=== PATIENT | female | born 1945 | race Caucasian/White ===

== ENCOUNTER 2019-10-03 15:06 | Inpatient (IN) | payer OTHER, BC ==
[2019-10-03] MEDS ORDERED: NA CHLORIDE 0.9% 1,000 ML ONE ×2 (15:13→15:59)
[2019-10-03] MEDS ORDERED: FENTANYL CITR 100 MCG/2 ML ONE ×2 (15:13→17:56)
[2019-10-03] MEDS ORDERED: ONDANSETRON 4 MG/2 ML VIAL ONE ×3 (15:13→20:39)
[2019-10-03] MEDS ORDERED: CEFAZOLIN/SWI 2gm 2 GM/20 ML SYR IVP ONE (15:30)
[2019-10-03 15:38] LABS: Absolute Lymphocytes (CBC) 3.3 K/uL (0.7-4.9); Basophils % 0.5 % (0-1.3); Hematocrit 35.2 % (36.0-45.0); Lymphocytes % 32.6 % (15.3-44.8); MPV 7.7 fL (7.6-11.3); RBC Red Blood Cell Count 3.73 M/uL (3.86-4.86)
[2019-10-03] MEDS ORDERED: PROPOFOL 200 MG/20 ML VIAL IV ONE ×2 (15:59→17:54)
--- NOTE | 2019-10-03 16:03 | RAD REPORT ---
EXAM DESCRIPTION: CT - Head Brain Wo Cont - 10/03/2019 3:38 pm CLINICAL HISTORY: Syncope, fall COMPARISON: CT head April 2013. TECHNIQUE: Axial 5 mm thick images of the head were obtained without IV contrast. All CT scans are performed using dose optimization technique as appropriate and may include automated exposure control or mA/KV adjustment according to patient size. FINDINGS: No intracranial hemorrhage, mass, edema or shift of mid-line structures. No acute infarcti on changes seen. No abnormal extra-axial fluid collections. No significant atrophy or chronic ischemi c change. Ventricles are normal. Arterial and physiologic calcifications are present. Intracranial fi ndings are stable from comparison. Mastoid air cells and visualized portions of the paranasal sinuses are clear. No acute bony findings. IMPRESSION: Negative non-contrast CT head examination for acute finding.
[2019-10-03 16:04] LABS: Albumin 3.7 g/dL (3.4-5.0); Bilirubin Direct 0.1 mg/dL (0-0.2); Bilirubin Total 0.5 mg/dL (0.2-1.0); Potassium 4.1 mmol/L (3.5-5.1)
[2019-10-03] MEDS ORDERED: KETAMINE HCL 500 MG/5 ML VIAL ONE (16:12)
[2019-10-03 16:14] LABS: Protime INR 0.96
--- NOTE | 2019-10-03 16:32 | RAD REPORT ---
EXAM DESCRIPTION: RAD - Ankle Left 3 View - 10/03/2019 3:34 pm CLINICAL HISTORY: Fall, gross ankle deformity COMPARISON: None. FINDINGS: Left ankle fracture dislocation is present. Talus is fully dislocated from the tibial plaf ond. Distal fibula fracture is present with 45 degree lateral angulation deformity and overlap. Media l malleolus fracture is present. The distal fibula fracture and the distal medial malleolus fracture remain approximated to the dome of the talus. Posterior malleolus fracture is suspected as well but n ot well visualized. No pathologic component. Soft tissue swelling is present. This may be an open fra cture on the medial margin. Little if any identifiable soft tissue overlies the medial margin of the distal tibia. Patient has a large plantar spur. IMPRESSION: Left ankle fracture dislocation as detailed.
--- NOTE | 2019-10-03 17:12 | RAD REPORT ---
EXAM DESCRIPTION: RAD - Ankle Left 2 View - 10/03/2019 4:49 pm CLINICAL HISTORY: Fracture dislocation left ankle COMPARISON: Left ankle films same FINDINGS: Frontal and cross-table lateral post reduction images were obtained of a previously detailed gross de formity fracture dislocation. Talus has been reduced to near anatomic alignment and position. Medial malleolus and distal fibula fr acture fragments also in near anatomic alignment and position. IMPRESSION: Fracture dislocation has been reduced to near anatomic alignment and position.
[2019-10-03] MEDS ORDERED: LIDOCAINE 2% MPF 5 ML VIAL ONE (17:54)
[2019-10-03] MEDS ORDERED: Ringers Lactate 1,000 ML IV ONE ×2 (17:55→19:46)
[2019-10-03] MEDS ORDERED: MIDAZOLAM HCL 2 MG/2 ML INJ ONE (17:56)
[2019-10-03] MEDS ORDERED: ROCURONIUM 50 MG/5 ML VIAL IV ONE (17:56)
--- NOTE | 2019-10-03 18:02 | EDPHYS ---
Physician Documentation [facility] Name: Natalya Choudhary Age: 74 yrs Sex: Female : 1945 Arrival Date: 10/03/2019 Time: 15:11 Bed 3 Private MD: ED Physician Mark Yates HPI: 10/03 17:36 This 74 yrs old Female presents to ER via EMS with complaints of Fall Injury, rn Ankle Injury. 17:36 The patient presents with a deformity, an injury, pain. The complaints affect the left rn ankle. Onset: The symptoms/episode began/occurred just prior to arrival. Associated signs and symptoms: Pertinent negatives: fever, rash, warmth, weakness. Modifying factors: The symptoms are alleviated by nothing, the symptoms are aggravated by movement. Severity of symptoms: At their worst the symptoms were moderate, in the emergency department the symptoms are unchanged. The patient has not experienced similar symptoms in the past. Pt was at [employer], states felt like had to use bathroom, tried, unable to, got off toilet, woke up on ground, not sure what happened but had open wound to left ankle and blood on floor. No meds given by EMS because patient's BP low, given small amount of fluids and BP continues to improve. . Historical: - Allergies: 15:18 No Known Allergies; jl7 - Home Meds: 17:30 gabapentin 100 mg oral cap [Active]; Effexor Oral 75 mg daily [Active]; trazodone 150 sg mg Oral tab [Active]; spironolactone 25 mg Oral tab [Active]; lisinopril-hydrochlorothiazide 20-12.5 mg oral tab 1 tab once daily [Active]; levothyroxine 75 mcg tab 1 tab once daily [Active]; Fish Oil oral oral [Active]; fenofibrate oral 67 mg oral [Active]; - PMHx: 15:31 Hypertension; diverticulosis; iw 17:30 RA; sg - PSHx: 17:30 Hysterectomy; Cholecystectomy; sg - Immunization history:: Last tetanus immunization: July 16, 2017. - Ebola Screening: : No symptoms or risks identified at this time. - Family history:: not pertinent. - Social history:: Smoking status: Patient/guardian denies using tobacco. - Hospitalizations: : No recent hospitalization is reported. ROS: 17:36 Constitutional: Negative for fever, chills, and weight loss, Eyes: Negative for injury, rn pain, redness, and discharge, Neck: Negative for injury, pain, and swelling, Cardiovascular: Negative for chest pain, palpitations, and edema, Respiratory: Negative for shortness of breath, cough, wheezing, and pleuritic chest pain, Abdomen/GI: Negative for vomiting, diarrhea MS/Extremity: + left ankle injury and open wound Skin: + open wound left medial ankle Neuro: Negative for headache, weakness, numbness, tingling, and seizure. Exam: 17:36 Constitutional: This is a well developed, well nourished patient who is awake, alert, rn appears uncomfortable Head/Face: Normocephalic, atraumatic. Eyes: Pupils equal round and reactive to light, extra-ocular motions intact. Lids and lashes normal. Conjunctiva and sclera are non-icteric and not injected. Cornea within normal limits. Periorbital areas with no swelling, redness, or edema. Neck: NO cervical midline tenderness, no swelling Chest/axilla: Normal chest wall appearance and motion. Nontender with no deformity. Cardiovascular: Regular rate and rhythm. No pulse deficits. Respiratory: No increased work of breathing, no retractions or nasal flaring. Abdomen/GI: soft, mild lower bilateral quadrant tenderness, no masses or rebound MS/ Extremity: Pulses equal, no cyanosis. + lateral displaced left foot with 4cm medial ankle laceration and protrusion of medial malleolus. DP and PT pulses intact and equal to RLE. Mild swelling and no cyanosis. Neuro: Awake and alert, GCS 15, oriented to person, place, time, and situation. Cranial nerves II-XII grossly intact. Motor strength 5/5 in all extremities. Sensory grossly intact. Cerebellar exam normal. Normal gait. Vital Signs: 15:11 BP 132 / 87; Pulse 89; Resp 16 S; Temp 98.0; Pulse Ox 100% on R/A; Weight 79.38 kg; iw Height 5 ft. 4 in. (162.56 cm); Pain 10/10; 15:18 BP 99 / 55; Pulse 79; Resp 18 S; Temp 98.3(TE); Pulse Ox 97% on R/A; Pain 10/10; iw 16:00 BP 124 / 47; Pulse 74; Resp 16; Pulse Ox 99% on R/A; iw 16:18 BP 159 / 67; Pulse 78; Resp 12; Pulse Ox 100% on 15% Non-rebreather mask; sg 16:25 BP 152 / 82; Pulse 79; Resp 14; Pulse Ox 100% on 15% Non-rebreather mask; sg 16:30 BP 131 / 61; Pulse 78; Resp 16; Pulse Ox 100% on 2 lpm NC; sg 16:45 BP 132 / 62; Pulse 77; Resp 18; Temp 97.2; Pulse Ox 100% on 2 lpm NC; sg 15:11 Body Mass Index 30.04 (79.38 kg, 162.56 cm) iw 16:18 Dhaval Score of 7 sg 16:25 Dhaval Score of 7 sg 16:30 Dhaval Score of 8 sg [place] Coma Score: 15:11 Eye Response: spontaneous(4). Verbal Response: oriented(5). Motor Response: obeys iw commands(6). Total: 15. 15:18 Eye Response: spontaneous(4). Verbal Response: oriented(5). Motor Response: obeys iw commands(6). Total: 15. Trauma Score (Adult): 15:11 Eye Response: spontaneous(1); Verbal Response: oriented(1); Motor Response: obeys iw commands(2); Systolic BP: > 89 mm Hg(4); Respiratory Rate: 10 to 29 per min(4); [place] Score: 15; Trauma Score: 12 15:18 Eye Response: spontaneous(1); Verbal Response: oriented(1); Motor Response: obeys iw commands(2); Systolic BP: > 89 mm Hg(4); Respiratory Rate: 10 to 29 per min(4); [place] Score: 15; Trauma Score: 12 16:00 Eye Response: spontaneous(1); Verbal Response: oriented(1); Motor Response: obeys iw commands(2); Systolic BP: > 89 mm Hg(4); Respiratory Rate: 10 to 29 per min(4); Carol Score: 15; Trauma Score: 12 Procedures: 16:29 Splinting: Splint applied to left ankle using Orthoglass splint, applied by myself. rn post reduction film - reveals improved alignment, Examined by me, post splint application: neurovascular intact, 2+ distal pulses palpable, strong posterior tibial arterial pulse. Patient tolerated well. Reduction: of the left ankle, using traction, manipulation, Immobilized with posterior and stirrup splints. Patient tolerated well. Post reduction film - reveals improved alignment. Moderate sedation: Pre-procedure assessment: the patient has been NPO 4 hour(s) prior to arrival, ASA physical classification: I - healthy, no underlying organic disease, Airway assessment: able to hyperextend neck, able to maintain airway, can open mouth without difficulty, Monitoring during procedure: documentation nurse, continuous pulse oximetry, nurse at bedside at all times, Medications employed: ketamine and propofol, Post-procedure assessment: the patient is mildly sedated, Respiratory status: even and unlabored, a reversal agent was not used. MDM: 15:11 Patient medically screened. rn 15:40 ED course: Called Dr. Renteria, no answer, will try again.. rn 16:04 ED course: Contacted Dr. Renteria, is coming to eval patient.. rn 17:05 ED course: Evaluated in ER by Dr. Renteria, Is not sure we have external fixator, is rn checking, and will let me know if we need to transfer, ankle reduced, and patient feels better. 17:23 ED course: Dr. Renteria states ok to admit here and is taking to OR. . rn 17:54 Differential diagnosis: fracture, sprain. Data reviewed: vital signs, nurses notes, laboratory supervisor test result(s), radiologic studies, plain films, and as a result, I will admit patient. Counseling: I had a detailed discussion with the patient and/or guardian regarding: the historical points, exam findings, and any diagnostic results supporting the discharge/admit diagnosis, lab results, radiology results, the need for further work-up and treatment in the hospital. Response to treatment: the patient's symptoms have markedly improved after treatment, and as a result, I will admit patient. Admission orders: after a detailed discussion of the patient's condition and case, the admit orders are written by me. 17:57 ED course: No acute findings on CT abdomen per Dr. Amin other than maybe small fecal rn retention and mild colitis. . 10/03 15:14 Order name: CBC with Diff; Complete Time: 16:53 rn 10/03 15:14 Order name: Basic Metabolic Panel; Complete Time: 16:53 rn 10/03 15:14 Order name: Creatinine for Radiology; Complete Time: 16:53 rn 10/03 15:14 Order name: Hepatic Function; Complete Time: 16:53 rn 10/03 15:14 Order name: Lipase; Complete Time: 16:53 rn 10/03 15:15 Order name: PT-INR; Complete Time: 16:53 rn 10/03 15:12 Order name: XRAY Ankle LEFT 3 view; Complete Time: 16:53 rn 10/03 15:14 Order name: CT Head Brain wo Cont; Complete Time: 16:53 rn 10/03 15:14 Order name: CT Abd/Pelvis - IV Contrast Only rn 10/03 15:15 Order name: Ptt, Activated; Complete Time: 16:53 rn 10/03 16:29 Order name: XRAY Ankle LEFT 2 view rn 10/03 17:13 Order name: Type And Screen iw 10/03 15:14 Order name: IV Start; Complete Time: 15:20 rn 10/03 15:14 Order name: EKG; Complete Time: 15:15 rn 10/03 15:14 Order name: EKG - Nurse/Tech; Complete Time: 15:40 rn 10/03 15:14 Order name: Labs collected and sent; Complete Time: 15:40 rn 10/03 15:16 Order name: NPO; Complete Time: 15:37 rn Administered Medications: 15:10 Drug: NS 0.9% 1000 ml Route: IV; Rate: 1000 ml; Site: right antecubital; sg 16:20 Follow up: Response: No adverse reaction; IV Status: Completed infusion sg 15:12 Drug: Zofran 4 mg Route: IVP; Site: right antecubital; sg 16:00 Follow up: Response: No adverse reaction sg 15:14 Drug: fentaNYL (PF) 50 mcg Route: IVP; Site: right antecubital; sg 16:00 Follow up: Response: No adverse reaction; Pain is decreased; RASS: Alert and Calm (0) sg 15:40 Drug: Ancef 2 grams Route: IVPB; Infused Over: 30 mins; Site: right antecubital; sg 16:25 Follow up: Response: No adverse reaction; IV Status: Completed infusion sg 17:23 CANCELLED (UTD): Tetanus-Diphtheria Toxoid Adult 0.5 ml IM once rn Disposition: 11/19/19 18:00 Hospitalization ordered by Kassy Carlos for Inpatient Admission. Preliminary diagnosis are Syncope and collapse, Trimalleolar fracture of lower leg, Dislocation of left ankle joint. - Bed requested for Telemetry/MedSurg (Inpatient). - Status is Inpatient Admission. sg - Condition is Stable. - Problem is new. - Symptoms have improved. UTI on Admission? No Signatures: Dispatcher [employer] EDMS Jewel Dewey RN RN sg Williams, Irene RN Mark Kwong MD MD rn Leal, Jahala, RN RN jl7 Corrections: (The following items were deleted from the chart) 17:23 17:23 Tetanus-Diphtheria Toxoid Adult 0.5 ml IM once ordered. rn rn 18:05 18:00 Hospitalization Ordered by Kassy Carlos MD for Inpatient Admission. Preliminary sg diagnosis is Syncope and collapse; Trimalleolar fracture of lower leg; Dislocation of left ankle joint. Bed requested for Telemetry/MedSurg (Inpatient). Status is Inpatient Admission. Condition is Stable. Problem is new. Symptoms have improved. UTI on Admission? No. rn
--- NOTE | 2019-10-03 18:02 | ER ---
Nurse's Notes [facility] Name: Natalya Choudhary Age: 74 yrs Sex: Female : 1945 Arrival Date: 10/03/2019 Time: 15:11 Bed 3 Private MD: Diagnosis: Syncope and collapse;Trimalleolar fracture of lower leg;Dislocation of left ankle joint Presentation: 10/03 15:08 Presenting complaint: Patient states: was having abd pain, cramping, went to bathroom iw at [employer], tried to have a BM but go dizzy and then woke up on floor, pt has obvious deformity to left ankle, open dislocation/fracture, EMS was unable to give pain meds due to BP, EMS reports initial BP reading in 60's systolic, IV fluids infusing upon arrival , pt A\T\OX3, denies head or neck pain, denies any other injuries, still c/o and pain , hx of diverticulosis. Care prior to arrival: Medication(s) given: Normal saline infusion, 500 mL, IV initiated. 20 GA, in the right antecubital area. Mechanism of Injury: Fall Trauma event details: Injury occurred in the [facility], Injury occurred: at home. Injury occurred: October 03, 2019. 15:08 Acuity: SUN 2 iw 15:08 Method Of Arrival: EMS: [facility] iw 15:32 Transition of care: patient was not received from another setting of care. Onset of iw symptoms was October 03, 2019. Risk Assessment: Do you want to hurt yourself or someone else? Patient reports no desire to harm self or others. Initial Sepsis Screen: Does the patient meet any 2 criteria? No. Patient's initial sepsis screen is negative. Does the patient have a suspected source of infection? No. Patient's initial sepsis screen is negative. Trauma Activation: Physician: ED Physician; Name: Dr. Yates; Notified At: 14:58; Arrived At: 14:58 Physician: General Surgeon; Name: N/A; Notified At: 14:58; Arrived At: Specialty not needed Physician: Radiology; Name: Don Donovan/Yennifer; Notified At: 14:58; Arrived At: 14:59 Physician: Respiratory; Name: N/A; Notified At: 14:58; Arrived At: Specialty not needed Physician: Lab; Name: N/A; Notified At: 14:58; Arrived At: Specialty not needed Historical: - Allergies: 15:18 No Known Allergies; jl7 - Home Meds: 17:30 gabapentin 100 mg oral cap [Active]; Effexor Oral 75 mg daily [Active]; trazodone 150 sg mg Oral tab [Active]; spironolactone 25 mg Oral tab [Active]; lisinopril-hydrochlorothiazide 20-12.5 mg oral tab 1 tab once daily [Active]; levothyroxine 75 mcg tab 1 tab once daily [Active]; Fish Oil oral oral [Active]; fenofibrate oral 67 mg oral [Active]; - PMHx: 15:31 Hypertension; diverticulosis; iw 17:30 RA; sg - PSHx: 17:30 Hysterectomy; Cholecystectomy; sg - Immunization history:: Last tetanus immunization: July 16, 2017. - Ebola Screening: : No symptoms or risks identified at this time. - Family history:: not pertinent. - Social history:: Smoking status: Patient/guardian denies using tobacco. - Hospitalizations: : No recent hospitalization is reported. Screenin:32 Abuse screen: Denies threats or abuse. Denies injuries from another. Tuberculosis iw screening: No symptoms or risk factors identified. Primary Survey: 15:12 NO uncontrolled hemorrhage observed. A: The patient is alert. Airway: patent. iw Breathing/Chest: Respiratory pattern: regular, Respiratory effort: spontaneous, Chest inspection: symmetrical rise and fall of the chest. Circulation: Heart tones present. Pulses: palpable right dorsalis pedis artery and left dorsalis pedis artery. Skin color: pink. Disability Alert. Exposure/Environment: All clothing and personal items were removed. There is no evidence of uncontrolled external bleeding. Obvious injury(ies) are noted at this time: open fracture/dislocation to left ankle. 15:12 Reassessment Airway Airway Patent Oral cavity Clear Trachea Midline Breathing/Chest sg Respiratory pattern Regular Respiratory effort Spontaneous Unlabored Breath sounds Clear Chest inspection Symmetrical Circulation Heart tones Present Disability Alert. Secondary Survey: 15:40 Gastrointestinal: Abdomen is soft, flat. Musculoskeletal: Bony deformity noted of left iw ankle. Assessment: 15:12 General: Appears uncomfortable, Behavior is calm. Pain: Complains of pain in left iw lateral ankle Pain currently is 10 out of 10 on a pain scale. Pain: Complains of pain in abdomen. Neuro: Level of Consciousness is awake, alert, obeys commands, Oriented to person, place, time, situation, Moves all extremities. Cardiovascular: Capillary refill < 3 seconds in bilateral fingers Patient's skin is warm and dry. Respiratory: Respiratory effort is even, unlabored, Respiratory pattern is regular, symmetrical. GI: Abdomen is non-distended, Reports upper abdominal pain, cramping. Derm: Skin is intact, is healthy with good turgor. Musculoskeletal: Range of motion: limited in left ankle Bony deformity noted of left lateral ankle Swelling present in left lateral ankle. 16:38 Reassessment: at bedside assessing patient during procedure. sg 16:40 Reassessment: Patient appears in no apparent distress at this time. Patient and/or sg family updated on plan of care and expected duration. Pain level reassessed. Patient is alert, oriented x 3, equal unlabored respirations, skin warm/dry/pink. at bedside for closed reduction of left ankle. 17:25 Reassessment: Patient appears in no apparent distress at this time. Patient is alert, sg oriented x 3, equal unlabored respirations, skin warm/dry/pink. Jewelry and personal belongings given to pt daughters at this time, pt to CT for CT ABD/Pelvis. Vital Signs: 15:11 BP 132 / 87; Pulse 89; Resp 16 S; Temp 98.0; Pulse Ox 100% on R/A; Weight 79.38 kg; iw Height 5 ft. 4 in. (162.56 cm); Pain 10/10; 15:18 BP 99 / 55; Pulse 79; Resp 18 S; Temp 98.3(TE); Pulse Ox 97% on R/A; Pain 10/10; iw 16:00 BP 124 / 47; Pulse 74; Resp 16; Pulse Ox 99% on R/A; iw 16:18 BP 159 / 67; Pulse 78; Resp 12; Pulse Ox 100% on 15% Non-rebreather mask; sg 16:25 BP 152 / 82; Pulse 79; Resp 14; Pulse Ox 100% on 15% Non-rebreather mask; sg 16:30 BP 131 / 61; Pulse 78; Resp 16; Pulse Ox 100% on 2 lpm NC; sg 16:45 BP 132 / 62; Pulse 77; Resp 18; Temp 97.2; Pulse Ox 100% on 2 lpm NC; sg 15:11 Body Mass Index 30.04 (79.38 kg, 162.56 cm) iw 16:18 Dhaval Score of 7 sg 16:25 Dhaval Score of 7 sg 16:30 Dhaval Score of 8 sg Carol Coma Score: 15:11 Eye Response: spontaneous(4). Verbal Response: oriented(5). Motor Response: obeys iw commands(6). Total: 15. 15:18 Eye Response: spontaneous(4). Verbal Response: oriented(5). Motor Response: obeys iw commands(6). Total: 15. Trauma Score (Adult): 15:11 Eye Response: spontaneous(1); Verbal Response: oriented(1); Motor Response: obeys iw commands(2); Systolic BP: > 89 mm Hg(4); Respiratory Rate: 10 to 29 per min(4); Carol Score: 15; Trauma Score: 12 15:18 Eye Response: spontaneous(1); Verbal Response: oriented(1); Motor Response: obeys iw commands(2); Systolic BP: > 89 mm Hg(4); Respiratory Rate: 10 to 29 per min(4); Carol Score: 15; Trauma Score: 12 16:00 Eye Response: spontaneous(1); Verbal Response: oriented(1); Motor Response: obeys iw commands(2); Systolic BP: > 89 mm Hg(4); Respiratory Rate: 10 to 29 per min(4); Carol Score: 15; Trauma Score: 12 ED Course: 15:11 Patient arrived in ED. rn 15:11 Mark Yates MD is Attending Physician. rn 15:15 Maintain EMS IV. Dressing intact. Good blood return noted. Site clean \T\ dry. Gauge \T\ iw site: 20 RAC. Patient maintains SpO2 saturation greater than 95% on room air. Thermoregulation: warm blanket given to patient. 15:17 Radiology exam delayed due to lab results not completed at this time. (BUN/Creatinine) kw1 IV insertion attempt and/or patient not having appropriate IV at this time. 15:19 Arm band placed on right wrist. jl7 15:20 Patient has correct armband on for positive identification. Bed in low position. Call sg light in reach. Side rails up X2. Pulse ox on. NIBP on. Warm blanket given. Head of bed elevated. 15:21 Jewel Dewey, RN is Primary Nurse. sg 15:30 Triage completed. iw 15:35 XRAY Ankle LEFT 3 view In Process Unspecified. EDMS 15:38 CT Head Brain wo Cont In Process Unspecified. EDMS 15:39 Radiology exam delayed due to lab results not completed at this time. (BUN/Creatinine). nj 15:47 EKG done, by certified pharmacy technician. reviewed by Mark Yates MD. sm3 16:00 Consent for conscious sedation explained by physician, signed by spouse, Procedure sg consent explained by physician, signed by spouse. 16:48 XRAY Ankle LEFT 2 view In Process Unspecified. EDMS 17:34 CT Abd/Pelvis - IV Contrast Only In Process Unspecified. EDMS 17:52 No provider procedures requiring assistance completed. Patient admitted, IV remains in sg place. intact, No redness/swelling at site. 17:58 Kassy Carlos MD is Hospitalizing Provider. rn Administered Medications: 15:10 Drug: NS 0.9% 1000 ml Route: IV; Rate: 1000 ml; Site: right antecubital; sg 16:20 Follow up: Response: No adverse reaction; IV Status: Completed infusion sg 15:12 Drug: Zofran 4 mg Route: IVP; Site: right antecubital; sg 16:00 Follow up: Response: No adverse reaction sg 15:14 Drug: fentaNYL (PF) 50 mcg Route: IVP; Site: right antecubital; sg 16:00 Follow up: Response: No adverse reaction; Pain is decreased; RASS: Alert and Calm (0) sg 15:40 Drug: Ancef 2 grams Route: IVPB; Infused Over: 30 mins; Site: right antecubital; sg 16:25 Follow up: Response: No adverse reaction; IV Status: Completed infusion sg 17:23 CANCELLED (UTD): Tetanus-Diphtheria Toxoid Adult 0.5 ml IM once pattern and chain maker: 17:50 PO: 0ml; Total: 0ml. sg Output: 17:50 Urine: 0ml; Total: 0ml. sg Outcome: 17:51 Admitted to OR accompanied by nurse, family with patient, via stretcher, with chart, sg Report called to bedside report given to OR nurse 17:51 Condition: stable 17:51 Instructed on the need for admit, safety practices, Demonstrated understanding of instructions. 17:54 Patient's length of stay in the Emergency Department was greater than 2 hours. sg Patient's length of stay was extended due to the trauma surgeon being unavailable when called. Surgeon delayed, had to locate OR equipment for procedurePatient's length of stay extended due to 18:00 Decision to Hospitalize by Provider. rn 18:05 Patient left the ED. sg Signatures: Dispatcher [employer] EDMS Jewel Dewey RN RN sg Gabrielle Alejandra RN ANTIONETTE iw Mark Yates MD MD rn Jordan, Nathan nj Leal, Jahala, RN RN jl7 Carolyn Vieyra 1 Shonda Stallings 3 Corrections: (The following items were deleted from the chart) 15:32 15:15 Missed attempt(s): 20 gauge in right antecubital area. iw iw 15:41 15:18 BP 99 / 55; Pulse 79bpm; Resp 18bpm; Spontaneous; Pulse Ox 97% RA; jl7 iw 15:48 15:47 Ancef 2 grams IVPB in right antecubital over 30 mins sg sg
--- NOTE | 2019-10-03 18:05 | RAD REPORT ---
EXAM DESCRIPTION: CT - Abdomen Pelvis W Contrast - 10/03/2019 5:33 pm CLINICAL HISTORY: abd pain, syncope, fall, patient with open fracture dislocation of the ankle pendi ng surgical repair COMPARISON: CT study January 2019 TECHNIQUE: Biphasic, helical CT imaging of the abdomen and pelvis was performed following 100 ml non -ionic IV contrast. Oral contrast was given. All CT scans are performed using dose optimization technique as appropriate and may include automated exposure control or mA/KV adjustment according to patient size. FINDINGS: No suspicious findings in the lung bases. No pericardial thickening or effusion. The liver, spleen, and pancreas show no suspicious findings. No traumatic injury to the solid abdomin al viscera. Cholecystectomy clips are present with normal biliary tree. Symmetric renal function is seen with no hydronephrosis or suspicious renal mass. No pyelonephritis o r acute parenchymal process. No bladder abnormalities. No adrenal abnormality. Uterus is absent. Ovar ies are absent or atrophic. No gastric dilatation or wall thickening. No appendix or small bowel abnormality. Moderately large st ool volume distends the rectum. No overall colon dilatation. No focal colon mass. No diverticulitis. Mild mucosal level colitis changes could be present an below threshold for CT detection. No free air, free fluid or inflammatory stranding. No hernia, mass or bulky lymphadenopathy. No suspicious bony findings. Prominent bony degenerative changes are present without compression frac ture or acute finding. Patient has advanced L5-S1 degenerative disc disease. Slight L4 subluxation ca uses pseudo bulge of disc material. No acute vascular findings present. Patient has a small calcified splenic artery aneurysm that is unc hanged from prior imaging. IMPRESSION: No bowel obstruction, free air or surgically emergent finding. Patient has prominent stool volume distending the rectum. No convincing evidence for diverticulitis o r other emergent colon process. Mild mucosal level colitis changes would still be possible. No traumatic injury to the solid abdominal viscera. Bony degenerative change without acute finding. No acute vascular process.
[2019-10-03] MEDS ORDERED: METOCLOPRAMIDE 10 MG/2mL INJ ONE (18:20)
[2019-10-03] MEDS ORDERED: FAMOTIDINE 20 MG/2 ML VIAL IV ONE (18:21)
[2019-10-03] MEDS ORDERED: SUCCINYLCHOLINE 20 MG/ML (10 ML) IV ONE (18:27)
[2019-10-03] MEDS ORDERED: Phenylephrine HCl 10 MG/ML 1 ML VIAL ONE (18:51)
[2019-10-03] MEDS ORDERED: NS 0.9% VIAL 10 ML ONE (18:52)
[2019-10-03] MEDS ORDERED: NEOSTIGMINE 1 MG/ML -5 ML ONE (19:45)
[2019-10-03] MEDS ORDERED: GLYCOPYRROLATE 0.2 MG/ML SYR ONE (19:45)
[2019-10-03] MEDS ORDERED: dexAMETHasone 10 MG/ML VIAL ONE (20:05)
[2019-10-03] MEDS ORDERED: MEPERIDINE HCL 25 MG/0.5 ML ONE (20:42)
[2019-10-03] MEDS ORDERED: TRAMADOL HCL 50 MG TAB PO PRN (20:46)
[2019-10-03] MEDS ORDERED: MORPHINE 4 MG/ML SYR IV PRN (20:46)
[2019-10-03] MEDS ORDERED: DOCUSATE NA 100 MG CAP PO PRN (20:46)
[2019-10-03] MEDS ORDERED: ONDANSETRON 4 MG/2 ML VIAL IV PRN (20:46)
--- NOTE | 2019-10-03 20:46 | P.BOP ---
Preoperative diagnosis: left open trimalleolar ankle fracture Postoperative diagnosis: same Primary procedure: ORIF left bimalleolar ankle fracture Secondary procedure: closed treatment posterior malleolus fracture Employment Manager: NONE,NONE Estimated blood loss: 10 cc Specimen: none Findings: see dictation Anesthesia: General Complications: None Implants: 4 hole Acumed locking distal fibula plate, 4.0 cannulated screw Fluids & blood products: per anesthesia; TT: 87 mins @ 300 mmHg Transferred to: Recovery Room Condition: Good
--- NOTE | 2019-10-03 21:36 | RAD REPORT ---
EXAM DESCRIPTION: RAD - Ankle Left 2 View - 10/03/2019 9:10 pm CLINICAL HISTORY: POST LEFT ANKLE ORIF COMPARISON: Ankle Left 2 View dated 10/03/2019 FINDINGS: Postsurgical changes of ORIF procedure noted. Lateral fibular sideplate with multiple scre ws is present single lag screw present in the medial malleolus. Bone detail is obscured by cast mater ial. Large calcaneal spurs.
--- NOTE | 2019-10-03 22:59 | CON ---
Reason For Consultation: Left ankle pain. History Of Present Illness: Ms. Choudhary is a 74-year-old female who presented to the ER today after sustaining a fall with a twisting injury to her left ankle with subsequent pain and inability to bear weight. She had a syncopal episode that caused her fall. She sustained a laceration over her left medial ankle consistent with an open fracture dislocation of her left ankle. She underwent closed reduction in the emergency room by the emergency room physician. After irrigation of her open injury, she was given 2 g of Ancef and she was current on her tetanus vaccine. She denies any other musculoskeletal complaints at this time. She denies any numbness or tingling in her toes after reduction prior to the splint being placed. She had documented dorsalis pedis pulse and posterior tibial pulses by the emergency room physician. Review of Systems: As above, otherwise negative. Past Medical History: Includes irritable bowel syndrome, hypercholesterolemia, and hypertension, diverticulosis Past Surgical History: Includes hysterectomy, cholecystectomy. Medications: Per medication reconciliation. Social History: She does report tobacco use. Physical Examination: General: No apparent distress. HEENT: Normocephalic, atraumatic. Neck: Supple. Cardiovascular: Brisk cap refill to all digits. Chest: Nonlabored breathing. Abdomen: Nondistended. Psychiatric: Responsive to exam. Musculoskeletal: Left lower extremity prior to the splint being placed, it was noted that the patient had approximately 5-6 cm laceration, approximately 4 cm proximal to the medial malleolus. There was no gross contamination noted. She has positive firing of EHL and FHL. Sensation grossly intact at the tips of her toes and the plantar surface of her foot distally. No pain with range of motion of the hip or knee. Bilateral upper extremities functional range of motion without pain. No gross deformities. No obvious dislocations. Right lower extremity functional range of motion without pain. No gross deformities. No obvious dislocations. X-rays: X-rays demonstrate a left trimalleolar ankle fracture with a small posterior malleolar fragment of less than 25% of the joint surface and fracture with SER4 pattern. Assessment: Natalya is a 74-year-old female with an open left trimalleolar ankle fracture dislocation. Plan: Patient has undergone local irrigation and reduction by the emergency room physician. Will plan on urgent irrigation and debridement as well as possible open reduction and internal fixation versus possible external fixation. Risks and benefits associated with the procedure as well as possible further procedures were discussed with the patient and her family at length and they expressed understanding. The plan will be irrigate and definitively fix if there is no significant swelling noted. If there is significant swelling, we will have to plan on external fixation with delayed ORIF. GILLES/BETY Voice ID: [id number] Report ID: [id number] [email or web address]
[2019-10-03] MEDS ORDERED: CEFAZOLIN/SWI 2gm 0 GM/0 ML SYR ONE (23:18)
[2019-10-03] MEDS ORDERED: CEFAZOLIN SODIUM 1 GM/VIAL ONE (23:20)
[2019-10-03] MEDS ORDERED: NA CHLORIDE 0.9% 100 ML ONE (23:22)
[2019-10-03 23:27] LABS: Urine Appearance CLEAR; Urine Bilirubin NEGATIVE (NEG); Urine Blood NEGATIVE (NEG); Urine Color YELLOW; Urine Glucose NEGATIVE (NEG); Urine Protein NEGATIVE (NEG); Urine Specific Gravity 1.025 (1.005-1.030)
[2019-10-03] MEDS: CEFAZOLIN 2 GM in NA CHLORIDE 0.9% 100 ML IVPB SCH (23:30)
[2019-10-03 23:51] LABS: Urine Microscopic Reflex NO UMIC
[2019-10-04 00:11] VITALS: BMI 32.7
[2019-10-04] MEDS ORDERED: CEFEPIME 2 GM VIAL ONE (04:53)
[2019-10-04] MEDS ORDERED: CEFAZOLIN/SWI 1gm 2 GM/20 ML SYR ONE (04:55)
[2019-10-04] MEDS ORDERED: CEFAZOLIN/SWI 1gm 1 GM/10 ML SYR IV SCH ×2 (05:00→06:00)
[2019-10-04] MEDS: CEFAZOLIN/SWI 1gm 1 GM/10 ML SYR IV SCH (05:13)
[2019-10-04] MEDS: CEFAZOLIN 2 GM in NA CHLORIDE 0.9% 100 ML IVPB SCH (05:14)
[2019-10-04 05:59] LABS: Absolute Lymphocytes (CBC) 0.6 K/uL (0.7-4.9); Hematocrit 33.9 % (36.0-45.0); Lymphocytes % 5.6 % (15.3-44.8); MPV 7.9 fL (7.6-11.3); RBC Red Blood Cell Count 3.51 M/uL (3.86-4.86)
[2019-10-04] MEDS ORDERED: CEFAZOLIN/SWI 2gm 2 GM/20 ML SYR IV SCH ×3 (06:00→12:00)
[2019-10-04 06:11] LABS: Albumin 3.2 g/dL (3.4-5.0); Bilirubin Total 0.3 mg/dL (0.2-1.0); Magnesium 1.6 mg/dL (1.8-2.4); Phosphorus 2.1 mg/dL (2.5-4.9); Potassium 4.3 mmol/L (3.5-5.1); Protein, Total 6.5 g/dL (6.4-8.2)
--- NOTE | 2019-10-04 06:58 | OP ---
Date of Procedure: 10/03/2019 Surgeon: Yoan Renteria MD Postoperative Diagnosis: Left open trimalleolar ankle fracture. Postoperative Diagnosis: Left open trimalleolar ankle fracture. Procedure Performed: 1.Irrigation and debridement of left open trimalleolar ankle fracture. 2.Open reduction internal fixation, left trimalleolar ankle fracture. 3.Closed treatment left posterior malleolus fracture. Anesthesia: General endotracheal. Fluids: Per Anesthesia record. Estimated Blood Loss: Less than 10 mL. Implants: A 4-hole locking Acumed distal fibular plate and one 4-0 cannulated screw. Complications: None. Tourniquet Time: 87 minutes at 300 mmHg. Indication For Procedure: Natalya is a 74-year-old female presented to the ER after having a syncopal episode in the bathroom and sustained an injury to her left ankle. She was brought to the emergency room and was diagnosed with a left open trimalleolar ankle fracture. The patient underwent closed re duction of her fracture dislocation of her ankle and was placed in a splint by the emergency room jacques jones. Antibiotics were started in the emergency room and she was current on a tetanus vaccination. I discussed with the patient at length risks and benefits associated with operative and nonoperativ e treatment. She expressed understanding and elected to proceed with operative treatment. Description Of Procedure: After informed consent was obtained, the patient was identified in the pre operative holding area. The left lower extremity was marked. The patient was then brought back to [facility] operating room, transferred to the operating table in a supine fashion, placed under general endot dioni anesthesia. The left lower extremity was then prepped and draped in usual sterile fashion. A time-out was initiated. Correct patient and procedure were confirmed and identified. The patient had received preoperative antibiotics given her open fracture in the emergency room. The left lower extremity was then elevated and underwent gravity exsanguination and the tourniquet inflated to 300 m mHg. Attention was first taken to the open fracture. The patient had approximately a 5 cm transvers e laceration just proximal to her medial malleolus. Distal tibia was then brought out through the sk in laceration and the exposed bone was debrided using a curette as well as a 15 blade to debride the periosteum that was brought out through the deep laceration. It was debrided down to the level of angeli ne with a curette and irrigated down to the level of the bone using 6 L of normal saline using cystos copy tubing. After the fracture was irrigated and debrided thoroughly, the fracture was then reduced . Attention was then taken to the distal fibula where approximately a 10 cm longitudinal incision wa s made centered over the distal fibula. The fracture was identified. It was reduced using a pointed reduction clamp. A single 3.5 cortical screw was placed in bicortical fashion using standard AO lag technique by over drilling the proximal cortex with a 3.5 drill bit and the distal cortex with a 2.5 drill bit. An 18 mm 3.5 cortical screw was placed in bicortical fashion and there was compression o philip the fracture site. A 4-hole locking distal fibula Acumed plate was then placed as a neutralizati on plate and 4-0 locking screws were placed in unicortical fashion distally and 3 cortical screws wer e placed in bicortical fashion proximally. There was good overall reduction of the fracture evident on both AP and lateral views using fluoroscopy. A Cotton test was then used and stress was placed on the distal fibula and there was no widening of the syndesmosis. The wound was then irrigated thorou ghly with normal saline. Subcutaneous tissue was approximated using a 2-0 Vicryl. Skin was approxim ated using a 3-0 nylon. Next, attention was taken to the medial malleolus where approximately a 3 cm longitudinal incision was made just distal to the tip of the medial malleolus. Using fluoroscopy, i t was noted that the fracture was well reduced. A single K-wire was then placed in retrograde fashio n over the medial malleolus and to the distal tibia and proper position was confirmed using fluorosco py in both AP and lateral views. It was then overdrilled over the proximal cortex with a drill with a cannulated drill bit and a 42 mm 4-0 cannulated screw was placed over the guide pin and there was g ood reduction and compression at the fracture site. The distal fracture fragment was very small, wou ld not take 2 screws, and so a single central screw was placed. A second guidewire was placed while placing the screw to ensure no rotation at the fracture site. After this both K-wires were removed. The wound was then irrigated thoroughly with normal saline. Subcutaneous tissue was approximated us ing a 2-0 Vicryl. Skin was approximated using 3-0 nylon. A 5 cm laceration was then approximated us ing a 2-0 nylon loosely and sterile dressings were placed. The patient was placed in a posterior sti rrup splint. Awakened and transferred to PACU in stable condition. Postoperative Plan: Physical Therapy will be consulted tomorrow to aid with mobilization. The patie nt was admitted to the Internal Medicine hospitalist service and she will have workup for her syncopa l episode. CV/MODL Voice ID: [id number] Report ID: [id number]
--- NOTE | 2019-10-04 07:24 | P.HP ---
Certification for Inpatient Patient admitted to: Inpatient With expected LOS: >2 Midnights Patient will require the following post-hospital care: None Practitioner: I am a practitioner with admitting privileges, knowledge of patient current condition, hospital course, and medical plan of care. Services: Services provided to patient in accordance with Admission requirements found in Title 42 Section 412.3 of the Code of Federal Regulations Patient History Date of Service: 10/03/19 Reason for admission: Open ankle fracture History of Present Illness: Patient is a 74-year-old female who was at [employer] doing some shopping. She went to the restroom and when she woke up she was on the floor. She had an open left ankle fracture. She was brought into the ER and taken to the operating room by Orthopedic. The ankle was cleaned and washed out. Patient also had a repair of the ankle fracture. Orthopedics has recommended 3 doses of antibiotics prior to discharging. Patient will also need outpatient physical therapy. Will Consult PT while in the hospital. Patient also getting a syncopal workup. Will monitor on telemetry & get carotid Dopplers and echocardiogram. Allergies No Known Allergies Allergy (Verified 10/03/19 22:13) Home Medications: Fish Oil/Dha/Epa [Fish Oil 1,200 mg Fish Oil] 1,200 mg PO DAILY 04/28/13 Levothyroxine [Synthroid*] 75 mcg PO [id number] 04/28/13 Lisinopril/Hydrochlorothiazide [Zestoretic 20-12.5 Tablet] 1 each PO DAILY 04/28 Multivitamin [Daily Multivitamin] 1 each PO DAILY 04/28/13 Spironolactone [Aldactone*] 25 mg PO DAILY 04/28/13 Venlafaxine HCl *Xr* [Effexor XR] 75 mg PO DAILY 04/28/13 Fenofibrate,Micronized [Fenofibrate] 1 cap PO BEDTIME 10/03/19 Gabapentin 1 cap PO DAILY 10/03/19 Pravastatin Sodium 1 tab PO BEDTIME 10/03/19 Trazodone [Desyrel*] 1 tab PO BEDTIME 10/03/19 - Past Medical/Surgical History Has patient received pneumonia vaccine in the past: Yes Diabetic: No -: HTN -: Diverticulosis -: Osteoarthritis -: IBS -: Cholecystectomy -: Parital Hysterectomy - Family History Mother Medical History: Blood disorders Father Medical History: Stroke, Cancer Notes: Neck cancer, Pneumonia Brother Medical History: Heart disease Notes: aneurysm , bypass - Social History Smoking Status: Current every day smoker Alcohol use: Yes CD- Drugs: No Caffeine use: Yes Place of Residence: Home Review of Systems 10-point ROS is otherwise unremarkable Physical Examination - Vital Signs Temperature: 98.1 F Blood Pressure: 126/60 Pulse: 90 Respirations: 18 Pulse Ox (%): 92 - Physical Exam General: Alert, In no apparent distress, Oriented x3 HEENT: Atraumatic, PERRLA, Mucous membr. moist/pink, EOMI, Sclerae nonicteric Neck: Supple, 2+ carotid pulse no bruit, No LAD, Without JVD or thyroid abnormality Respiratory: Clear to auscultation bilaterally, Normal air movement Cardiovascular: Regular rate/rhythm, Normal S1 S2, No murmurs Gastrointestinal: Normal bowel sounds, Soft and benign, Non-distended, No tenderness Musculoskeletal: No clubbing, Swelling, Tenderness Integumentary: No rashes Neurological: Normal gait, Normal speech, Normal tone, Sensation intact, Cranial nerves 3-12 intact, Normal affect, Abnormal strength Lymphatics: No axilla or inguinal lymphadenopathy - Studies Laboratory Data (last 24 hrs) 10/03/19 15:35: PT 11.4, INR 0.96, APTT 24.4 10/03/19 15:15: Creatinine 1.17 10/03/19 15:15: Sodium 134 L, Potassium 4.1, BUN 17, Creatinine 1.19, Glucose 131 H, Total Bilirubin 0.5, AST 24, ALT 24, Alkaline Phosphatase 105, Lipase 88 10/03/19 15:15: WBC 10.1, Hgb 12.5, Hct 35.2 L, Plt Count 296 Assessment & Plan - Problems (Diagnosis) (1) Open left ankle fracture Current Visit: Yes Status: Acute (2) History of hypertension Current Visit: Yes Status: Acute (3) Syncope and collapse Current Visit: Yes Status: Acute - Plan Plan: 1. IV antibiotic therapy 2. Pain control 3. PT eval 4. Echo in carotid Doppler 5. Monitor on telemetry 6. Check electrolytes 7. GI and DVT prophylaxis. Plan per Orthopedic is to finish 3 doses of antibiotics inpatient surgically cleared for discharge after this. Will get case management to arrange for outpatient PT. Discharge Plan: Home Plan to discharge in: 48 Hours - Advance Directives Does patient have a Living Will: No Does patient have a Durable POA for Healthcare: Yes - Code Status/Comfort Care Code Status Assessed: Yes Code Status: Full Code Critical Care: No Time Spent Managing PTS Care (In Minutes): 45
--- NOTE | 2019-10-04 07:25 | EKG ---
Test Date: 2019-10-03 Test Time: 15:40:53 Emt P: THOMAS MEASUREMENT RESULTS: Intervals: Rate: 76 MO: 154 QRSD: 82 QT: 380 QTc: 427 Renick: P: 71 MO: 154 QRS: 52 T: 92 INTERPRETIVE STATEMENTS: Normal sinus rhythm Nonspecific ST and T wave abnormality Abnormal ECG Compared to ECG 04/28/2013 06:09:26 ST (T wave) deviation now present First degree AV block no longer present Electronically Signed On 10-04-19 07:23:39 INTERNATIONAL TR[employer] MANAGER by Laci Callejas
[2019-10-04] MEDS ORDERED: MAGNESIUM SULFATE 1 gm IVPB 1 GM/100 ML BAG IV ONE (08:00)
[2019-10-04] MEDS: POTASS/SODIUM PHOSPHATE 1 PKT POWD.PACK PO SCH ×3 (08:18→12:07)
--- NOTE | 2019-10-04 10:11 | RAD REPORT ---
EXAM DESCRIPTION: US - CP - 10/04/2019 9:46 am CLINICAL HISTORY: Syncope Headache, drowsiness COMPARISON: No comparisons TECHNIQUE: Real-time sonographic evaluation of both carotid systems was performed. Doppler interroga tion was performed with waveform tracing bilaterally. FINDINGS: Normal high resistance waveforms are noted in both external carotid arteries. The common c arotid arteries and internal carotid arteries show normal low resistance waveforms. Mild mixed plaque is seen in both proximal internal carotid arteries. Peak systolic and end diastolic velocity values and the ICA/CCA ratios are in the non-hemodynamically significant range. Antegrade flow seen in both vertebral arteries. IMPRESSION: Mild mixed plaque is noted in both proximal internal carotid arteries. No evidence of a hemodynamically significant stenosis.
[2019-10-04] MEDS: VENLAFAXINE HCL XR 75 MG CAP PO SCH (10:18)
[2019-10-04] MEDS: NICOTINE 14 MG/PAT TD SCH (10:18)
[2019-10-04] MEDS: HYDROCODONE/APAP 7.5/325 MG TAB PO PRN ×2 (10:19→19:33)
[2019-10-04] MEDS ORDERED: MORPHINE 2 MG/ML SYR IV PRN (12:38)
[2019-10-04 13:35] LABS: Anisocytosis 1+; Blood Morphology Comment NOTED (NOT SEEN); Platelet Estimate ADEQ; Urine White Blood Cell Casts OK
--- NOTE | 2019-10-04 13:46 | P.PN ---
Subjective Date of Service: 10/04/19 Chief Complaint: s/p I&D and ORIF of her left ankle fracture Subjective: Other Pain controlled. Physical Examination - Vital Signs Temperature: 99.2 F Blood Pressure: 134/60 Pulse: 89 Respirations: 18 Pulse Ox (%): 95 - Physical Exam General: Alert, In no apparent distress Musculoskeletal: Other (LLE: splint in place without drainage; +EHL/FHL; gross sensation intact in toes; BCR in all digits) - Studies Laboratory Data (last 24 hrs) 10/03/19 15:35: PT 11.4, INR 0.96, APTT 24.4 10/03/19 15:15: Creatinine 1.17 10/03/19 15:15: Sodium 134 L, Potassium 4.1, BUN 17, Creatinine 1.19, Glucose 131 H, Total Bilirubin 0.5, AST 24, ALT 24, Alkaline Phosphatase 105, Lipase 88 10/03/19 15:15: WBC 10.1, Hgb 12.5, Hct 35.2 L, Plt Count 296 Assessment And Plan - Plan Natalya is a 74 yo female s/p I&D and ORIF of left open ankle fracture dislocation -complete 24 hours of antibiotics -work with PT to aid with transfers and mobilization; NWB LLE -continue with syncopal workup per medicine -march followup in my clinic in 1 week for wound check
[2019-10-04] MEDS ORDERED: LORazepam 2 MG/ML VIAL IV ONE (15:48)
--- NOTE | 2019-10-04 17:25 | RAD REPORT ---
EXAM DESCRIPTION: MRI - Brain W/Wo Cont - 10/04/2019 5:12 pm CLINICAL HISTORY: Syncope COMPARISON: October [address] TECHNIQUE: Axial, sagittal, and coronal magnetic images of the brain were obtained. 20 cc MultiHance administered intravenously FINDINGS: No significant abnormal signal within the brain noted The ventricles are normal in caliber. Diffusion-weighted/ ADC mapping sequences do not demonstrate evidence of an acute infarction. No abnormal enhancement within the brain is seen. An extra-axial fluid collection is not noted. Fluid within the sinuses/mastoids is not seen IMPRESSION: No acute abnormality displayed
--- NOTE | 2019-10-04 17:28 | RAD REPORT ---
EXAM DESCRIPTION: MRI - MRA Head Wo Cont - 10/04/2019 5:11 pm CLINICAL HISTORY: Syncope COMPARISON: None. TECHNIQUE: Magnetic resonance angiogram was performed. 3D MIPS reconstruction performed FINDINGS: origin of the left posterior cerebral artery is present The The anterior cerebral, middle cerebral, posterior cerebral, distal internal carotid and basilar a rteries do not demonstrate a significant stenosis. An aneurysm is not displayed. IMPRESSION: Unremarkable MRA brain.
--- NOTE | 2019-10-04 17:30 | RAD REPORT ---
EXAM DESCRIPTION: MRI - MRA Neck W/Wo Cont - 10/04/2019 5:11 pm CLINICAL HISTORY: Syncope COMPARISON: October 04, 2019 carotid ultrasound TECHNIQUE: Magnetic resonance angiogram of the neck was performed. 19 cc MultiHance was administered intravenously. 3D MIPS reconstruction performed FINDINGS: Mild plaque is present within the carotid arteries. The left vertebral artery is dominant. The right vertebral artery is hypoplastic. . IMPRESSION: Mild plaque within the carotid arteries NASCET criteria used. Mild 0-49% stenosis Moderate 50-69% stenosis Severe 70-99% stenosis
--- NOTE | 2019-10-04 17:49 | P.SSS ---
Patient History Date of Service: 10/04/19 Reason for admission: L ANKLE FRACTURE History of Present Illness: MS. KAPLAN PASSED OUT IN LOW FROM STRAINING TO HAVE BM WITH CHRONIC CONSTIPATION. SHE WAS ADMITTED TO DR. RODRIGUEZ BUT SHE IS MY OFFICE PATIENT SO I WILL TAKE CARE OF HER. SHE DID NOT HAVE CHEST PAIN. SHE IS A SMOKER AND MILD DIABETIC. Allergies No Known Allergies Allergy (Verified 10/03/19 22:13) Home Medications: Fish Oil/Dha/Epa [Fish Oil 1,200 mg Fish Oil] 1,200 mg PO DAILY 04/28/13 Levothyroxine [Synthroid*] 75 mcg PO [id number] 04/28/13 Lisinopril/Hydrochlorothiazide [Zestoretic 20-12.5 Tablet] 1 each PO DAILY 04/28 Multivitamin [Daily Multivitamin] 1 each PO DAILY 04/28/13 Spironolactone [Aldactone*] 25 mg PO DAILY 04/28/13 Venlafaxine HCl *Xr* [Effexor XR] 75 mg PO DAILY 04/28/13 Fenofibrate,Micronized [Fenofibrate] 1 cap PO BEDTIME 10/03/19 Gabapentin 1 cap PO DAILY 10/03/19 Pravastatin Sodium 1 tab PO BEDTIME 10/03/19 Trazodone [Desyrel*] 1 tab PO BEDTIME 10/03/19 Linaclotide [Linzess] 145 mcg PO DAILY #30 capsule 10/04/19 - Past Medical/Surgical History Has patient received pneumonia vaccine in the past: Yes Diabetic: No -: HTN -: Diverticulosis -: Osteoarthritis -: IBS -: Cholecystectomy -: Parital Hysterectomy - Family History Mother -: Blood disorders Father -: Stroke, Cancer Notes: Neck cancer, Pneumonia Brother -: Heart disease Notes: aneurysm , bypass - Social History Smoking Status: Current every day smoker Alcohol use: Yes CD- Drugs: No Caffeine use: Yes Place of Residence: Home Review of Systems 10-point ROS is otherwise unremarkable General: Weakness, Malaise Musculoskeletal: As per HPI (L ANKLE ) Physical Examination - Vital Signs Temperature: 99.2 F Blood Pressure: 134/60 Pulse: 89 Respirations: 18 Pulse Ox (%): 95 - Physical Exam General: Mild distress, Obese HEENT: Atraumatic, PERRLA, Mucous membr. moist/pink, EOMI, Sclerae nonicteric Neck: Supple, 2+ carotid pulse no bruit, No LAD, Without JVD or thyroid abnormality Respiratory: Clear to auscultation bilaterally, Normal air movement Cardiovascular: Regular rate/rhythm, Normal S1 S2 Gastrointestinal: Normal bowel sounds, No tenderness Musculoskeletal: No tenderness Integumentary: No rashes Neurological: Normal gait, Normal speech, Normal strength at 5/5 x4 extr, Normal tone, Normal affect Lymphatics: No axilla or inguinal lymphadenopathy - Diagnosis (Problem(s)) (1) Open left ankle fracture Current Visit: Yes Status: Acute Plan: MANAGED BY DR AUGUSTIN. HE IS OKAY TO DC HER. PT PER HIM. Qualifiers: Encounter type: initial encounter (2) Syncope and collapse Current Visit: Yes Status: Acute Plan: SEEMS VASOVAGAL . MRI, MRA NEG FOR BRAIN. SHE IS HIGH RISK FOR STROKE. NO SIGNS OF IA. EKG NORMAL. - Disposition Disposition: ROUTINE DISCHARGE Condition: FAIR
[2019-10-04] MEDS ORDERED: ATORVASTATIN 10 MG TAB PO SCH (21:00)
[2019-10-04] MEDS ORDERED: FENOFIBRATE MICRONIZED PO SCH (21:00)
[2019-10-04] MEDS ORDERED: TRAZODONE 150 MG TAB PO SCH (21:00)
[2019-10-04 23:49] VITALS: O2SAT 95
[2019-10-05] MEDS ORDERED: LEVOTHYROXINE SOD 0.075 MG TAB PO SCH (06:00)
[2019-10-05 06:01] LABS: Absolute Lymphocytes (CBC) 1.9 K/uL (0.7-4.9); Basophils % 0.4 % (0-1.3); Hematocrit 28.4 % (36.0-45.0); Lymphocytes % 20.6 % (15.3-44.8); MPV 7.8 fL (7.6-11.3); RBC Red Blood Cell Count 3.01 M/uL (3.86-4.86)
[2019-10-05 06:25] LABS: ALT/SGPT 20 U/L (12-78); AST/SGOT 18 U/L (15-37); Alkaline Phosphatase 77 U/L (45-117); BUN Blood Urea Nitrogen 7 mg/dL (7-18); Bicarbonate 28 mmol/L (21-32); Bilirubin Total 0.5 mg/dL (0.2-1.0); Glucose Level 98 mg/dL (74-106); Magnesium 1.6 mg/dL (1.8-2.4); Potassium 3.7 mmol/L (3.5-5.1); Protein, Total 5.9 g/dL (6.4-8.2); Sodium Level 138 mmol/L (136-145)
--- NOTE | 2019-10-05 07:10 | RAD REPORT ---
EXAM DESCRIPTION: RAD - Ankle Left 2 View - 10/05/2019 6:53 am FINDINGS: There were 36 portable C-arm views obtained during a fluoroscopic assisted repair of a ope n fracture dislocation. Images show stepwise placement of fracture fixation hardware. No suspicious o r unexpected finding. Fluoro time was 0.6 minutes
[2019-10-05] MEDS: NICOTINE 14 MG/PAT TD SCH (08:26)
[2019-10-05] MEDS: HYDROCODONE/APAP 7.5/325 MG TAB PO PRN (08:27)
[2019-10-05] MEDS: VENLAFAXINE HCL XR 75 MG CAP PO SCH (08:28)
[2019-10-05] MEDS ORDERED: hydroCHLOROthiazide 12.5 MG CAP PO SCH (09:00)
[2019-10-05] MEDS ORDERED: LISINOPRIL PO SCH (09:00)
[2019-10-05] MEDS ORDERED: GABAPENTIN 100 MG CAP PO SCH (09:00)
[2019-10-05] MEDS ORDERED: HYDROCHLOROTHIAZIDE PO SCH (09:00)
[2019-10-05] MEDS ORDERED: lisinopriL 20 MG TAB PO SCH (09:00)
[2019-10-05] MEDS ORDERED: SPIRONOLACTONE 25 MG TABLET PO SCH (09:00)
--- NOTE | 2019-10-05 09:31 | ECHO ---
HEIGHT: 5 ft 9 in WEIGHT: 221 lb 11.2 oz DATE OF STUDY: 10/04/[address]: Kassy Carlos MD 2-DIMENSIONAL: YES M.MODE: YES DOPPLER: YES COLOR FLOW: YES TDS: NO PORTABLE: NO DEFINITY: NO BUBBLE STUDY: NO DIAGNOSIS: SYNCOPE CARDIAC HISTORY: CATHERIZATION: NO SURGERY: NO PROSTHETIC VALVE: NO PACEMAKER: NO MEASUREMENTS (cm) DIASTOLIC (NORMALS) SYSTOLIC (NORMALS) IVSd 0.9 (0.6-1.2) LA Diam 2.8 (1.9-4.0) LVEF 52% LVIDd 4.3 (3.5-5.7) LVIDs 3.2 (2.0-3.5) %FS 26% LVPWd 1.1 (0.6-1.2) Ao Diam 2.8 (2.0-3.7) 2 DIMENSIONAL ASSESSMENT: RIGHT ATRIUM: NORMAL LEFT ATRIUM: NORMAL RIGHT VENTRICLE: NORMAL LEFT VENTRICLE: NORMAL TRICUSPID VALVE: NORMAL MITRAL VALVE: NORMAL PULMONIC VALVE: NORMAL AORTIC VALVE: NORMAL PERICARDIAL EFFUSION: NONE AORTIC ROOT: NORMAL LEFT VENTRICULAR WALL MOTION: NORMAL DOPPLER/COLOR FLOW: TRACE TRICUSPID REGURGITATION. COMMENTS: TRACE TRICUSPID REGURGITATION. NORMAL LEFT VENTRICULAR SIZE AND FUNCTION. NORMAL LEFT VENTRICULAR SIZE AND FUNCTION. NO WALL MOTION ABNORMALITY. NO EFFUSION. TECHNOLOGIST: Landy NUNEZ
[2019-10-05] MEDS ORDERED: POTASSIUM CL SA 10 MEQ TAB PO ONE (10:00)
[2019-10-05] MEDS ORDERED: MAGNESIUM SULFATE 1 gm IVPB 1 GM/100 ML BAG IV ONE (10:00)
--- NOTE | 2019-10-05 11:56 | P.PN ---
Subjective Date of Service: 10/05/19 Chief Complaint: L ANKLE FRACTURE Subjective: Improving, Working w/ PT Pain controlled. Physical Examination - Vital Signs Temperature: 98.5 F Blood Pressure: 135/57 Pulse: 100 Respirations: 18 Pulse Ox (%): 96 - Physical Exam General: Alert, In no apparent distress Musculoskeletal: Other (LLE: dressing c/d/i; +EHL/FHL; gross sensation intact distally; BCR all digits) Assessment And Plan - Plan Natalya is a 74 yo female s/p I&D and ORIF of left open ankle fracture dislocation -completed 24 hours of antibiotics -work with PT to aid with transfers and mobilization; NWB LLE -may followup in my clinic in 1 week for wound check -will be discharged to inpatient rehab
[2019-10-05 15:07] VITALS: BP 107/55; TEMP 98.4
--- NOTE | 2019-10-06 07:26 | DS ---
Date of Discharge: 10/05/2019 Ms. Choudhary is doing okay. She has left ankle fracture, not able to ambulate yet, not able to stand up with a walker yet. Fortunately, she was accepted to rehab pretty quickly, which is unusual for [facility] nowadays and she is transferred to rehab for OT and PT. MARKUS/BETY Voice ID: [id number] Report ID: [id number]
== END 2019-10-05 14:10 | disposition home or self-care (01) | DRG 494 ==
LOC: ER 15:06 → ERHOLD 18:06 → 2ND 18:25
PROVIDERS: ADMIT Internal Medicine; ATTEND Hospitalist
PROC: 0QSK04Z Reposition Left Fibula with Internal Fixation Device, Open Approach (ICD-10-PCS; 2019-10-03)
PROC: 0QSH04Z Reposition Left Tibia with Internal Fixation Device, Open Approach (ICD-10-PCS; 2019-10-03)
PROC: 0QSHXZZ Reposition Left Tibia, External Approach (ICD-10-PCS; 2019-10-03)
PROC: 0QDH0ZZ Extraction of Left Tibia, Open Approach (ICD-10-PCS; principal; 2019-10-03 17:30)
DX: S82.852B Displaced trimalleolar fracture of left lower leg, initial encounter for open fracture type I or II (principal); W01.0XXA Fall on same level from slipping, tripping and stumbling without subsequent striking against object, initial encounter; Y92.512 Supermarket, store or market as the place of occurrence of the external cause; I10 Essential (primary) hypertension; K57.90 Diverticulosis of intestine, part unspecified, without perforation or abscess without bleeding; M19.90 Unspecified osteoarthritis, unspecified site; R55 Syncope and collapse; F17.210 Nicotine dependence, cigarettes, uncomplicated
CPT/HCPCS: 36415; 70450; 70544; 70549; 70553; 74177; 80048; 80053; 80076; 81003; 83690; 83735; 84100; 84484; 85025; 85610; 85730; 86850; 86900; 86901; 93005; 93306; 93880; 96365; 96375; 97110; 97112; 97161; 97530; 99285; A9577; J0330; J0690; J0692; J1100; J2175; J2250; J2370; J2405; J2704; J2710; J2765; J3010; J3475; J7030; J7120; Q9967

== ENCOUNTER 2019-10-05 09:39 | Inpatient (IN) | payer OTHER, BC ==
--- NOTE | 2019-10-05 12:27 | R.PREADM ---
SCREENING DATE AND TIME 10/05/2019 10:09 (RETAIL ASSET PROTECTION SPECIALIST) ANTICIPATED REHAB ADMISSION DATE 10/07/2019 REFERRING FACILITY [facility] REFERRAL DATE AND TIME 10/05/2019 10:09 (RETAIL ASSET PROTECTION SPECIALIST) REFERRAL ROOM# 210 ACUTE ADMIT DATE 10/02/2019 Previous Rehabilitation(s): No. ACUTE SOCIAL WORK PROFESSOR/DC EXECUTIVE ACCOUNT MANAGER Tess Beckman REFERRING PHYSICIAN Tanner Salvador REHAB FACILITY [facility] CLINICAL LIAISON Jordyn Patel PHYSICIAN REVIEWER Dr. Magdi Rosales M.D. MR# [id number] NAME DIMITRY KAPLAN ADDRESS [address] [facility] PHONE [facility] [address] DATE OF 1945 AGE 74 SSN# [id number] GENDER female MARITAL STATUS RACE white ADMIT FROM 02 - [facility] PRE-HOSPITAL LIVING SETTING 01 - Home (private home/apt. board/care, assisted living, nursing home, transitional living) HOME TYPE AND DETAILS Type of home: single family house # of levels in the residence: 1 # of steps to enter the residence: 6 # of steps within the residence: 0 PRE-HOSPITAL LIVING WITH Family/Relatives FAMILY SUPPORT Yes PRIMARY FAMILY CONTACT NAME JUAN KAPLAN PRIMARY FAMILY CONTACT PHONE PHONE PRIMARY FAMILY CONTACT ON ADM.? no IS PRIMARY FAMILY CONTACT AUTH. REP.? no 1ST EMERGENCY CONTACT JUAN KAPLAN 1ST CONTACT PHONE PHONE 1ST CONTACT ON ADM. no IS 1ST CONTACT AUTH. REP.? no PHONE 2ND CONTACT ON ADM.? no PATIENT EMPLOYMENT STATUS Retired (for age) PATIENT EMPLOYER No Employer PAYOR INFORMATION: 1ST PAYOR NAME MEDICARE 1ST PAYOR PHONE [phone] 1ST PAYOR INJURY/ILLNESS DUE TO ACCIDENT? No ANOTHER DEMOCRAT RESPONSIBLE? No PRIMARY REHAB/ACUTE DIAGNOSIS: Left Open Trimalleolar Ankle Fracture ONSET DATE 10/02/2019 REHAB IMPAIRMENT CATEGORY (VINICIO): 20 Miscellaneous (Misc) does NOT meet 60% rule PRIMARY DIAGNOSIS-RELATED SURGERIES: Irrigation and Debridement of Left Open Trimalleolar Ankle Fracture Open Reduction Internal Fixation, left Trimalleolar Ankle Fracture Closed Treatment Left Posterior Malleolus Fracture COMORBID REHAB/ACUTE DIAGNOSES: - Non-Tiered IBS DJD Right Knee - N/A Hypertension Diverticulosis OSteoarthritis INTERVENTIONS: - Hypertension Fluid management Medications VS - Osteoarthritis Energy conservation Exercise Joint Protection Medications Pain management RISK FOR COMPLICATIONS: - Hypertension CVA Hypotension [place] TIA - Osteoarthritis Falls SUMMARY OF ACUTE HOSPITALIZATION: Pt. is a 74 yo Right-handed white female. On 10/02/2019 she was admitted to [facility] with diagnosis Left Open Trimalleo lar Ankle Fracture. Her impairment category is Debility 16 - Debility (16). Pre-morbidly, Pt. was independent/mod-I in Locomotion, Safety Awareness, Balance, Social Cognition, T ransfers Control, Self-Care, Sphincter Control, Communication, and Endurance; and she had good Locomo tion, Safety Awareness, Social Cognition, Balance, Transfers Control, Sphincter Control, Self-Care, C ommunication, and Endurance. Currently, she has deficits of Locomotion, Safety Awareness, Transfers Control, Self-Care, and Endura nce. Pt. is now referred to [facility] for acute in-patient rehabilitation in order to maximize patient's functional independence in activities of daily living, strength, ROM, and mobi lity. Patient has realistic goal of being discharged at assistance level 6-Veronique to reside at Home with Fam marjorie/Relatives. PAST MEDICAL HISTORY DJD Right Knee Diverticulosis Hypertension IBS OSteoarthritis PAST SURGICAL HISTORY: CHOLECYSTECTOMY PARTIAL HYSTERECTOMY MEDICATION ALLERGIES: No Known Drug Allergies (NKDA) ENVIRONMENTAL ALLERGIES: None Known - Substance Allergies None Known - Other Allergies None Known CODE STATUS: Full code WEIGHT/HEIGHT/BMI: WEIGHT 221 lbs HEIGHT 5' 9" BMI 32.6 DIET: - Diet Type Regular - Diet - Solid Texture Regular - Diet - Liquid Texture Regular - Tube Feed N/A SKIN DIAGRAM: Incision on Left lower leg; extent - small; stage - NS(Not Stageable). Treatment - Per Physician's Or ders. REVIEW OF SYSTEMS: - Gen Alert and awake Lying in bed No apparent distress Oriented to: person, time, and place - Vital Signs Temperature: 98.8 F SBP/DBP: 149/65 Pulse: 97 Resp: 19 Vital signs stable, afebrile - CVS RRR VITAL SIGNS Temperature: 98.8 F SBP/DBP: 149/65 Pulse: 97 Resp: 19 Vital signs stable, afebrile MEDICATIONS/TREATMENT: Other- See attached MAR (Medication Administration Record). See attached MAR (Medication Administration Record) Kenrick Dimitry.pdf. CURRENT SPHINCTER CONTROL: Pre-hospital bladder status: continent # of bladder accidents in the last 7 days prior to screenin Pre-hospital bowel status: continent # of bowel accidents in the last 7 days prior to screenin Last Bowel Movement Date: CURRENT LOCOMOTION STATUS: distance walked 0 feet DETAILED CURRENT FUNCTIONAL STATUS: - Bladder accident frequency: Ind - No accidents in the past 7 days - Bowel accident frequency: Ind - No accidents in the past 7 days - Walking score based on distance walked: 0(N/A) - Wheelchair score based on distance traveled: 0(N/A) QI SCORES: - Self-Care A. Eating 05-Setup or clean-up assistance B. Oral hygiene 05-Setup or clean-up assistance C. Toileting hygiene 03-Partial/moderate assistance E. Shower/bathe self 04-Supervision or touching assistance F. Upper body dressing 05-Setup or clean-up assistance G. Lower body dressing 02-Substantial/maximal assistance H. Putting on/taking off footwear 02-Substantial/maximal assistance - Mobility A. Roll left and right 03-Partial/moderate assistance B. Sit to lying 03-Partial/moderate assistance C. Lying to sitting on side of bed 03-Partial/moderate assistance D. Sit to stand 01-Dependent E. Chair/tev-et-mqghm transfer 02-Substantial/maximal assistance F. Toilet transfer 02-Substantial/maximal assistance G. Car transfer 88-Not attempted due to medical condition or safety concerns I. Walk 10 feet 88-Not attempted due to medical condition or safety concerns J. Walk 50 feet with two turns 88-Not attempted due to medical condition or safety concerns K. Walk 150 feet 88-Not attempted due to medical condition or safety concerns L. Walking 10 feet on uneven surfaces 88-Not attempted due to medical condition or safety concerns M. 1 step (curb) 88-Not attempted due to medical condition or safety concerns N. 4 steps 88-Not attempted due to medical condition or safety concerns O. 12 steps 88-Not attempted due to medical condition or safety concerns P. Picking up object 88-Not attempted due to medical condition or safety concerns R. Wheel 50 feet with two turns 88-Not attempted due to medical condition or safety concerns S. Wheel 150 feet 88-Not attempted due to medical condition or safety concerns - Bladder and Bowel Bladder continence 0-Always continent Bowel continence 0-Always continent - Endurance Fair - Balance Poor - Safety Awareness Fair CURRENT FUNC. DEFICITS: Self-Care, Mobility, Endurance, Balance, and Safety Awareness CURRENT / PREVIOUS ASSISTIVE DEVICES: 3-in-1 Commode [facility] Bed Rolling Walker Shower Chair Tub Bench Wheelchair HISTORY OF FALLS. HAS THE PATIENT HAD TWO OR MORE FALLS IN THE PAST YEAR OR ANY FALL WITH INJURY IN T HE PAST YEAR?: No PRIOR SURGERY. DID THE PATIENT HAVE MAJOR SURGERY DURING THE 100 DAYS PRIOR TO ADMISSION?: No THERAPY NOTES FROM ACUTE CARE: Attached. SPECIAL NEEDS: - Safety Concerns Skin breakdown precautions needed due to skin breakdown risk PRECAUTIONS: - Weight Bearing Precaution NWB left LE PATIENT NEEDS ACTIVE AND ONGOING THERAPEUTIC INTERVENTION OF MULTIPLE THERAPY DISCIPLINES, INCLUDING: - Dietary and Nutrition Adequate Nutrition. Nutritional Education. Nutritional Supplements. PATIENT NEEDS CLOSE MEDICAL SUPERVISION BY A REHABILITATION PHYSICIAN FOR: Coordination of Treatment Team Medical and Co-Morbidity Management Wound Care PATIENT REQUIRES 24X7 REHAB NURSING FOR MEDICAL AND FUNCTIONAL MGT. OF THE FOLLOWING DEFICITS: Disease Management Medication Management Patient/Family Education Providing Safe Environment Skin Integrity PATIENT REQUIRES INTENSIVE, COORDINATED INTERDISCIPLINARY APPROACH TO REHAB: Arranging Home Equipment/Services Discharge Planning Family Intervention/Training Brush Maker/Case Management PATIENT REHAB POTENTIAL: Jax KAPLAN is able and expected to receive 3 hours of individualized therapy daily on at least 5 of every 7 days Jax KAPLAN's prognosis for significant practical improvement within a reasonable period of time appe ars Good Expected level of measurable improvement will be of a practical value to Jax KAPLAN's functional cap acity or adaptations to impairments Has a viable Discharge Plan Medically appropriate; condition is sufficiently stable to participate in intensive rehab program DISCHARGE PLAN: - Estimated Length of Stay (days) 13. - Consensus on plan Discharge plan has been discussed with primary caregiver. Patient/Family is in agreement with the monroe n. Primary caregiver is in agreement with the plan. - Patient/Family Goals Return home with assistance. - Planned Living Setting Upon Discharge Home, to live with Family/Relatives. Transitional Living. RECOMMENDED CARE LEVEL: IRF RECOMMENDATION DETAILS: Recommended Admission to Comprehensive Rehabilitation Program to Increase Functional [place] SCREENER'S COMPLETENESS CONFIRMATION: - Screening Confirmation The patient data collection on this preadmission screening form is finished PHYSICIANS REVIEW AND ADMISSION DETERMINATION Admit - Based on my review of the Pre-Admission Screening results, in my medical judgment and experie nce, I concur with the findings and recommend admission to [facility], as this patient requires an IRF level of care. SIGNATURE PANEL: Clinical Liaison - [electronically] signed by Jordyn Patel on 10/05/2019 at 11:16 (RETAIL ASSET PROTECTION SPECIALIST) Physician Reviewer - [electronically] signed by Dr. Magdi Rosales M.D. on 10/05/2019 at 12:26 (RETAIL ASSET PROTECTION SPECIALIST )
[2019-10-05] MEDS ORDERED: TRAMADOL HCL 50 MG TAB PO PRN (14:32)
[2019-10-05] MEDS: NICOTINE 14 MG/PAT TD SCH (14:55)
--- NOTE | 2019-10-05 15:34 | FAST ---
ENCOUNTER DATE AND TIME: 10/05/2019 08:00 (COMPETITIVE INTELLIGENCE MANAGER) NAME DIMITRY KAPLAN DATE OF : 1945 DATE OF ADMISSION: 10/05/2019 13:55 (COMPETITIVE INTELLIGENCE MANAGER) PHONE: AGE: 74 N# [id number] GENDER: Female ENCOUNTER PHYSICIAN: Dr. Magdi Rosales M.D. ADMISSION DIAGNOSIS: - Debility 16 - Debility (16) Left Open Trimalleolar Ankle Fracture. ROLL LEFT AND RIGHT: ROLL LEFT AND RIGHT - STEP 1: Does the patient complete the activity by him/herself with no assistance (physical, verbal/nonverbal cueing, setup/clean-up)? No. ROLL LEFT AND RIGHT - STEP 2: Does the patient need only setup/clean-up assistance from one helper? No. ROLL LEFT AND RIGHT - STEP 3: Does the patient need only verbal/nonverbal cueing or touching/steadying/contact guard assistance fro m one helper? Yes. 1. [id number] ADMISSION PERFORMANCE: Supervision or touching assistance CODE: 04 SIT TO LYING: SIT TO LYING - STEP 1: Does the patient complete the activity by him/herself with no assistance (physical, verbal/nonverbal cueing, setup/clean-up)? No. SIT TO LYING - STEP 2: Does the patient need only setup/clean-up assistance from one helper? No. SIT TO LYING - STEP 3: Does the patient need only verbal/nonverbal cueing or touching/steadying/contact guard assistance fro m one helper? Yes. 1. [id number] ADMISSION PERFORMANCE: Supervision or touching assistance CODE: 04 LYING TO SITTING: LYING TO SITTING ON SIDE OF BED - STEP 1: Does the patient complete the activity by him/herself with no assistance (physical, verbal/nonverbal cueing, setup/clean-up)? No. LYING TO SITTING ON SIDE OF BED - STEP 2: Does the patient need only setup/clean-up assistance from one helper? No. LYING TO SITTING ON SIDE OF BED - STEP 3: Does the patient need only verbal/nonverbal cueing or touching/steadying/contact guard assistance fro m one helper? Yes. 1. [id number] ADMISSION PERFORMANCE: Supervision or touching assistance CODE: 04 SIT TO STAND: SIT TO STAND - STEP 1: Does the patient complete the activity by him/herself with no assistance (physical, verbal/nonverbal cueing, setup/clean-up)? No. SIT TO STAND - STEP 2: Does the patient need only setup/clean-up assistance from one helper? No. SIT TO STAND - STEP 3: Does the patient need only verbal/nonverbal cueing or touching/steadying/contact guard assistance fro m one helper? No. SIT TO STAND - STEP 4: Does the patient need physical assistance - for example lifting or trunk support from one helper - wi th the helper providing less than half of the effort? Yes. 1. [id number] ADMISSION PERFORMANCE: Partial/moderate assistance CODE: 03 TRANSFERS: BED, CHAIR: CHAIR/[id number] TRANSFER - STEP 1: Does the patient complete the activity by him/herself with no assistance (physical, verbal/nonverbal cueing, setup/clean-up)? No. CHAIR/[id number] TRANSFER - STEP 2: Does the patient need only setup/clean-up assistance from one helper? No. CHAIR/[id number] TRANSFER - STEP 3: Does the patient need only verbal/nonverbal cueing or touching/steadying/contact guard assistance fro m one helper? No. CHAIR/[id number] TRANSFER - STEP 4: Does the patient need physical assistance - for example lifting or trunk support from one helper - wi th the helper providing less than half of the effort? Yes. 1. [id number] ADMISSION PERFORMANCE: Partial/moderate assistance CODE: 03 TRANSFER TOILET: TOILET TRANSFER - STEP 1: Does the patient complete the activity by him/herself with no assistance (physical, verbal/nonverbal cueing, setup/clean-up)? No. TOILET TRANSFER - STEP 2: Does the patient need only setup/clean-up assistance from one helper? No. TOILET TRANSFER - STEP 3: Does the patient need only verbal/nonverbal cueing or touching/steadying/contact guard assistance fro m one helper? No. TOILET TRANSFER - STEP 4: Does the patient need physical assistance - for example lifting or trunk support from one helper - wi th the helper providing less than half of the effort? Yes. 1. [id number] ADMISSION PERFORMANCE: Partial/moderate assistance CODE: 03 TRANSFERS: CAR: Not attempted due to environmental limitations (e.g., lack of equipment, weather constraints) CODE: 10 WALK 10 FEET: WALK 10 FEET - STEP 1: Does the patient complete the activity by him/herself with no assistance (physical, verbal/nonverbal cueing, setup/clean-up)? No. WALK 10 FEET - STEP 2: Does the patient need only setup/clean-up assistance from one helper? No. WALK 10 FEET - STEP 3: Does the patient need only verbal/nonverbal cueing or touching/steadying/contact guard assistance fro m one helper? No. WALK 10 FEET - STEP 4: Does the patient need physical assistance - for example lifting or trunk support from one helper - wi th the helper providing less than half of the effort? Yes. 1. [id number] ADMISSION PERFORMANCE: Partial/moderate assistance CODE: 03 WALK 50 FEET: Not attempted due to medical condition or safety concerns CODE: 88 WALK 150 FEET: Not attempted due to medical condition or safety concerns CODE: 88 WALK 10 FEET UNEVEN: Not attempted due to medical condition or safety concerns CODE: 88 1 STEP (CURB): Not attempted due to medical condition or safety concerns CODE: 88 PICKING UP OBJECT: Not attempted due to medical condition or safety concerns CODE: 88 DOES THE PATIENT USE A WHEELCHAIR/SCOOTER? Q1. DOES THE PATIENT USE A WHEELCHAIR/SCOOTER?: Yes CODE: 1 WHEEL 50 FEET WITH TWO TURNS: WHEEL 50 FEET WITH TWO TURNS - STEP 1: Does the patient complete the activity by him/herself with no assistance (physical, verbal/nonverbal cueing, setup/clean-up)? No. WHEEL 50 FEET WITH TWO TURNS - STEP 2: Does the patient need only setup/clean-up assistance from one helper? No. WHEEL 50 FEET WITH TWO TURNS - STEP 3: Does the patient need only verbal/nonverbal cueing or touching/steadying/contact guard assistance fro m one helper? Yes. 1. [id number] ADMISSION PERFORMANCE: Supervision or touching assistance CODE: 04 INDICATE THE TYPE OF WHEELCHAIR/SCOOTER USED: RR1. INDICATE THE TYPE OF WHEELCHAIR/SCOOTER USED.: Manual CODE: 1 WHEEL 150 FEET: WHEEL 150 FEET - STEP 1: Does the patient complete the activity by him/herself with no assistance (physical, verbal/nonverbal cueing, setup/clean-up)? No. WHEEL 150 FEET - STEP 2: Does the patient need only setup/clean-up assistance from one helper? No. WHEEL 150 FEET - STEP 3: Does the patient need only verbal/nonverbal cueing or touching/steadying/contact guard assistance fro m one helper? Yes. 1. [id number] ADMISSION PERFORMANCE: Supervision or touching assistance CODE: 04 INDICATE THE TYPE OF WHEELCHAIR/SCOOTER USED: SS1. INDICATE THE TYPE OF WHEELCHAIR/SCOOTER USED.: Manual CODE: 1 BLADDER AND BOWEL: CODE: EXPR CODE: EXPR SIGNATURE PANEL: The following modified sections: 1. [id number] Admission Performance, 1. [id number] Admission Performance, 1. [id number] Admission Performance, 1. [id number] Admission Performance, 1. [id number] Admission Performance, 1. [id number] Admission Performance, 1. [id number] Admission Performance, Q1. Does the patient use a wheel chair/scooter?, 1. [id number] Admission Performance, RR1. Indicate the type of wheelchair/scooter used., 1. [id number] Admission Performance, Code, SS1. Indicate the type of wheelchair/scooter used. were [lew ctronically] signed by Bryan Dailey PT on WedOct 05 2019 15:34:14 GMT-0600 ([place])
[2019-10-05] MEDS: HYDROCODONE/APAP 5/325 MG TAB PO PRN (17:07)
--- NOTE | 2019-10-05 18:15 | R.HP ---
FACILITY: [facility] ENCOUNTER DATE AND TIME: 10/05/2019 18:10 (ELECTRONIC PREPRESS OPERATOR) MR#: [id number] NAME DIMITRY CHOUDHARY ADDRESS: [address] [place] [address] [address] CITY: [place]IP [id number] PHONE: DATE OF : 1945 AGE: 74 SSN# [id number] GENDER: Female DEXTERITY Right-handed MARITAL STATUS RACE White PRE-HOSPITAL LIVING SETTING 01 - Home (private home/apt. board/care, assisted living, mcc, transitional living) PRE-HOSPITAL LIVING WITH Family/Relatives ENCOUNTER PHYSICIAN: Dr. Magdi Rosales M.D. REFERRING DOCTOR: ashly Salvador DATE OF ADMISSION: 10/05/2019 13:55 (ELECTRONIC PREPRESS OPERATOR) REFERRING FACILITY [facility] HOME TYPE AND DETAILS: Type of home: single family house # of levels in the residence: 1 # of steps to enter the residence: 6 # of steps within the residence: 0 ADMISSION DIAGNOSIS: Left Open Trimalleolar Ankle Fracture ONSET DATE: 10/02/2019 PRIMARY DIAGNOSIS-RELATED SURGERIES: Irrigation and Debridement of Left Open Trimalleolar Ankle Fracture Open Reduction Internal Fixation, left Trimalleolar Ankle Fracture Closed Treatment Left Posterior Malleolus Fracture SECONDARY/COMORBID DIAGNOSES (TIERED): - Non-Tiered IBS DJD Right Knee - N/A Hypertension Diverticulosis OSteoarthritis HISTORY OF PRESENT ILLNESS (HPI): Pt. is a 74 yo Right-handed white female. On 10/02/2019 she was admitted to [facility] with diagnosis Left Open Trimalleo lar Ankle Fracture. Her impairment category is Debility 16 - Debility (16). Pre-morbidly, Pt. was independent/mod-I in Locomotion, Safety Awareness, Balance, Social Cognition, T ransfers Control, Self-Care, Sphincter Control, Communication, and Endurance; and she had good Locomo tion, Safety Awareness, Social Cognition, Balance, Transfers Control, Sphincter Control, Self-Care, C ommunication, and Endurance. Currently, she has deficits of Locomotion, Safety Awareness, Transfers Control, Self-Care, and Endura nce. Pt. is now referred to [facility] for acute in-patient rehabilitation in order to maximize patient's functional independence in activities of daily living, strength, ROM, and mobi lity. Patient has realistic goal of being discharged at assistance level 6-Veronique to reside at Home with Fam marjorie/Relatives. MEDICATION ALLERGIES: No Known Drug Allergies (NKDA) ENVIRONMENTAL ALLERGIES: None Known - Substance Allergies None Known - Other Allergies None Known PAST MEDICAL HISTORY: DJD Right Knee Diverticulosis Hypertension IBS OSteoarthritis PAST SURGICAL HISTORY: CHOLECYSTECTOMY PARTIAL HYSTERECTOMY FAMILY HISTORY: Family history is not contributory. SOCIAL HISTORY: - Home Living Family/Relatives REVIEW OF SYSTEMS: - Gen No Chills Fatigue No Fever - Eyes No Double Vision No itchiness - ENMT No Difficulty Swallowing - CVS No Chest Discomfort No Chest Pain Fatigue No Weight Gain - Resp No Cough No Shortness of Breath - GI Continent No Abdominal Pain No Constipation No Diarrhea - Continent No Kidney Pain No Painful Urination No Urinary Urgency - MSK Joint Pain Muscle Cramps Stiffness - Skin No Itching No Rash No Suspicious Lesions - Neuro Coordination Difficulty No Difficulty with Concentration No Memory Loss No Seizures Weakness - Psych No Anxiety No Depression No HIV Exposure No Persistent Infections No Seasonal Allergies - Endo No Cold/Heat Intolerance No Excessive Hunger No Excessive Thirst No Excessive Urination PHYSICAL EXAM - Gen Alert and awake Lying in bed No apparent distress Oriented to: person, time, and place - Skin No skin breakdown. Normacephalic - Eyes No abnormalities - ENMT No abnormalities - Neck No abnormalities - CVS RRR - Chest No abnormalities - Resp Clear to auscultation - Abd Soft - GI Non distended Deferred - No abnormalities - Ext Left leg in brace following ORIF. - MSK 4+/5 weakness in left lower extremity - Neuro 4/5 strength left lower extremity. - Psych No abnormalities VITAL SIGNS Temperature: 98.8 F SBP/DBP: 149/65 Pulse: 97 Resp: 19 NURSING: - Shower allowing shower PRECAUTIONS: - Weight Bearing Precaution NWB left LE ACTIVITIES OOB only with supervision QI SCORES: - Self-Care A. Eating 05-Setup or clean-up assistance B. Oral hygiene 05-Setup or clean-up assistance C. Toileting hygiene 03-Partial/moderate assistance E. Shower/bathe self 04-Supervision or touching assistance F. Upper body dressing 05-Setup or clean-up assistance G. Lower body dressing 02-Substantial/maximal assistance H. Putting on/taking off footwear 02-Substantial/maximal assistance - Mobility A. Roll left and right 03-Partial/moderate assistance B. Sit to lying 03-Partial/moderate assistance C. Lying to sitting on side of bed 03-Partial/moderate assistance D. Sit to stand 01-Dependent E. Chair/vcz-[id number] transfer 02-Substantial/maximal assistance F. Toilet transfer 02-Substantial/maximal assistance G. Car transfer 88-Not attempted due to medical condition or safety concerns I. Walk 10 feet 88-Not attempted due to medical condition or safety concerns J. Walk 50 feet with two turns 88-Not attempted due to medical condition or safety concerns K. Walk 150 feet 88-Not attempted due to medical condition or safety concerns L. Walking 10 feet on uneven surfaces 88-Not attempted due to medical condition or safety concerns M. 1 step (curb) 88-Not attempted due to medical condition or safety concerns N. 4 steps 88-Not attempted due to medical condition or safety concerns O. 12 steps 88-Not attempted due to medical condition or safety concerns P. Picking up object 88-Not attempted due to medical condition or safety concerns R. Wheel 50 feet with two turns 88-Not attempted due to medical condition or safety concerns S. Wheel 150 feet 88-Not attempted due to medical condition or safety concerns - Bladder and Bowel Bladder continence 0-Always continent Bowel continence 0-Always continent - Endurance Fair - Balance Poor - Safety Awareness Fair CURRENT FUNC. DEFICITS: Self-Care, Mobility, Endurance, Balance, and Safety Awareness MEDICATIONS: - Other See attached MAR (Medication Administration Record) See attached MAR (Medication Administration Record) Dimitry [email or web address].pdf ASSESSMENT: Pt. is a 74 yo Right-handed white female.On 10/02/2019 she was admitted to [facility] with diagnosis Left Open Trimalleolar Ankle Fracture.Her impairment category is Debility 16 - Debility (16).Pre-morbidly, Pt. was independent/mod-I in Locomotion, Safety Awareness, Balance, Soci al Cognition, Transfers Control, Self-Care, Sphincter Control, Communication, and Endurance; and she had good Locomotion, Safety Awareness, Social Cognition, Balance, Transfers Control, Sphincter Contro l, Self-Care, Communication, and Endurance.Currently, she has deficits of Locomotion, Safety Awarenes s, Transfers Control, Self-Care, and Endurance.Pt. is now referred to [facility] for acute in-patient rehabilitation in order to maximize patient's functional independence in acti vities of daily living, strength, ROM, and mobility.- Rehab Goal Patient has realistic goal of being discharged at assistance level 6-Veronique to reside at Home with Fam marjorie/Relatives. - Physical Therapy Gait dysfunction - to improve, our physical therapists will perform initial evaluation of pt's status upon admission and devise an individualized program for Gait Training, and Wheel Chair mobility Inability to transfer - to improve, our physical therapists will perform initial evaluation of pt's s tatus upon admission and devise an individualized program for Bed mobility Need for home safety evaluation - to improve, our physical therapists will perform initial evaluation of pt's status upon admission and devise an individualized program for Home Evaluation Need in caregiver upon discharge - to improve, our physical therapists will perform initial evaluatio n of pt's status upon admission and devise an individualized program for Caregiver Training New precaution - to improve, our physical therapists will perform initial evaluation of pt's status u bailey admission and devise an individualized program for Patient precaution education Poor endurance - to improve, our physical therapists will perform initial evaluation of pt's status u bailey admission and devise an individualized program for Endurance Training Weakness - to improve, our physical therapists will perform initial evaluation of pt's status upon ad mission and devise an individualized program for Aquatic Therapy, Neuromuscular Reeducation, and Stre ngthening Achieving independence - to improve, our physical therapists will perform initial evaluation of pt's status upon admission and devise an individualized program for Community Reintegration Activities - Occupational Therapy ADL deficits - to improve, our occupation therapists will perform initial evaluation of pt's status u bailey admission and devise an individualized program for Bathing, Bed mobility, Community Reintegration , Cooking, Dressing, Eating, Fine Motor Skills, Grooming, Homemaking, Kitchen Mobility, Laundry, Willa ent Education, Safety Awareness, Splinting - Positioning, Transfers(Toilet, Tub, Shower), and Wheel C hair Management Need for nanny caregiver - to improve, our occupation therapists will perform initial evaluation of pt's s tatus upon admission and devise an individualized program for Caregiver Training Weakness - to improve, our occupation therapists will perform initial evaluation of pt's status upon admission and devise an individualized program for Aquatic Therapy, Balance, Endurance, UE ROM, and U E strengthening MEDICAL PLAN: - Diet Type Start Regular - Diet - Liquid Texture Start Regular - Tube Feed Start N/A - Weight Bearing Precaution NWB left LE - Other See attached MAR (Medication Administration Record) See attached MAR (Medication Administration Record) Dimitry [email or web address].pdf - Diet - Solid Texture Regular - Shower shower DISCHARGE PLAN: - Estimated Length of Stay (days) 13. - Consensus on plan Discharge plan has been discussed with primary caregiver. Patient/Family is in agreement with the monroe n. Primary caregiver is in agreement with the plan. - Patient/Family Goals Return home with assistance. - Planned Living Setting Upon Discharge Home, to live with Family/Relatives. Transitional Living. SIGNATURE PANEL: (ELECTRONIC PREPRESS OPERATOR)
--- NOTE | 2019-10-05 18:17 | PAPE ---
PATIENT: [facility] MR# [id number] REFERRING DOCTOR ashly Salvador EVALUATION DATE AND TIME 10/05/2019 18:15 (JOURNEYMAN PRESSMAN) NAME DIMITRY KAPLAN DATE OF 1945 AGE 74 PHONE SSN# [id number] GENDER female EVALUATING PHYSICIAN Dr. Magdi Rosales M.D. ADMISSION DIAGNOSIS: Left Open Trimalleolar Ankle Fracture ONSET DATE 10/02/2019 SECONDARY/COMORBID DIAGNOSES TIERED: - Non-Tiered IBS DJD Right Knee - N/A Hypertension Diverticulosis OSteoarthritis POST-ADMISSION FUNCTIONAL/MEDICAL STATUS: - Bladder Same accident frequency: Ind - No accidents in the past 7 days - Bowel Same accident frequency: Ind - No accidents in the past 7 days - Walking Same score based on distance walked: 0(N/A) - Wheelchair Same score based on distance traveled: 0(N/A) STATUS CHANGE EVALUATION: No change in Functional or Medical Status is identified compared with Pre-Admission screening. PATIENT NEEDS CLOSE MEDICAL SUPERVISION BY A REHABILITATION PHYSICIAN FOR: Coordination of Treatment Team Medical and Co-Morbidity Management Wound Care PATIENT REQUIRES 24X7 REHAB NURSING FOR MEDICAL AND FUNCTIONAL MGT. OF THE FOLLOWING DEFICITS: Disease Management Medication Management Patient/Family Education Providing Safe Environment Skin Integrity PATIENT REQUIRES INTENSIVE, COORDINATED INTERDISCIPLINARY APPROACH TO REHAB: Arranging Home Equipment/Services Discharge Planning Family Intervention/Training Set Illustrator/Case Management LIST OF IDENTIFIED AND POTENTIAL PROBLEMS: Alteration in leisure activities Bladder, Incontinence Blood Pressure, Hypertension/hypotension Issues Bowel, Incontinence Infection, Actual or Potential Mobility Impaired Pain, Alteration in Comfort Self Care Deficit Skin Integrity, Actual or Potential Urinary Tract Infection (UTI), Actual or Potential RISK FOR COMPLICATIONS - Hypertension CVA. Hypotension. NE. TIA. - Osteoarthritis Falls. INTERVENTIONS - Hypertension - Osteoarthritis Energy conservation. Exercise. Joint Protection. Medications. Pain management. PATIENT COULD BE AT RISK FOR COMPLICATIONS FROM ADVERSE MEDICAL CONDITIONS DUE TO HIS/HER COMORBIDITI ES AND THE RIGORS OF THE INTENSIVE REHABILLITATION PROGRAM. METHODS OR INTERVENTIONS TO AVOID COMPLIC ATIONS INCLUDE: - Bleeding Assess lab values and manage abnormalities. Nursing to teach precautions for anti-coagulation therapy . Wound to be assessed every shift. - Infection Clinical staff to assess and manage the signs and symptoms of infection including fever, redness, war mth, etc. - Urinary Tract Infection - Falls Patient will be evaluated for Fall Precautions and will be placed on Fall Precautions as indicated pe r protocol. - Skin Breakdown Nursing will assess skin daily using assessment tool and will place on Skin Breakdown Precautions as indicated per protocol. - Pain Clinical staff may employ non-medication methods such as massage, distraction, decrease stimulus, etc . as needed. Clinical staff will assess patient's pain level every shift per protocol to assess and e nsure pain management effectiveness. Medications will be given and the pain level re-assessed. PRELIMINARY PLAN OF CARE: - Physical Therapy Patient needs Physical Therapy for a daily minimum of 1.5 hours at least 5 out of 7 days, to improve: Mobility, Strengthening, Transfers, Stretching, ROM, Endurance, Ability to manage stairs, Gait, and Balance. - Rehabilitation Nursing Patient requires 24x7 Rehabilitation Nursing for: Pain Issues, Identifying and preventing risk factor s, Monitoring and reporting current medical conditions, Assisting with ambulation and transfer, Gauri ting with all ADL-s, Teaching patients about disease process and medications, Family teaching, Provid ing safe environment, Bowel and Bladder Issues, Skin Integrity, and Medication Management. Patient needs Set Illustrator and/or Case Management for: Discharge Planning, Arranging Home Equipmen t or Services, and Family Interventions. - Dietary and Nutrition Services Patient needs Dietary and Nutrition Services for: Adequate Nutrition, Nutritional Supplements, and Nu tritional Education. - Occupational Therapy Patient needs Occupational Therapy for a daily minimum of 1.5 hours at least 5 out of 7 days, to impr ove Activities of Daily Living, including: Eating, Grooming, Bathing, Dressing, Toileting, Toilet Tra nsfers, Community Reintegration, Higher functional activities, Adaptive Equipment, Splinting, Househo ld Tasks, and Other activities as determined. QI SCORES: - Self-Care A. Eating 05-Setup or clean-up assistance B. Oral hygiene 05-Setup or clean-up assistance C. Toileting hygiene 03-Partial/moderate assistance E. Shower/bathe self 04-Supervision or touching assistance F. Upper body dressing 05-Setup or clean-up assistance G. Lower body dressing 02-Substantial/maximal assistance H. Putting on/taking off footwear 02-Substantial/maximal assistance - Mobility A. Roll left and right 03-Partial/moderate assistance B. Sit to lying 03-Partial/moderate assistance C. Lying to sitting on side of bed 03-Partial/moderate assistance D. Sit to stand 01-Dependent E. Chair/teh-kr-qbbwj transfer 02-Substantial/maximal assistance F. Toilet transfer 02-Substantial/maximal assistance G. Car transfer 88-Not attempted due to medical condition or safety concerns I. Walk 10 feet 88-Not attempted due to medical condition or safety concerns J. Walk 50 feet with two turns 88-Not attempted due to medical condition or safety concerns K. Walk 150 feet 88-Not attempted due to medical condition or safety concerns L. Walking 10 feet on uneven surfaces 88-Not attempted due to medical condition or safety concerns M. 1 step (curb) 88-Not attempted due to medical condition or safety concerns N. 4 steps 88-Not attempted due to medical condition or safety concerns O. 12 steps 88-Not attempted due to medical condition or safety concerns P. Picking up object 88-Not attempted due to medical condition or safety concerns R. Wheel 50 feet with two turns 88-Not attempted due to medical condition or safety concerns S. Wheel 150 feet 88-Not attempted due to medical condition or safety concerns - Bladder and Bowel Bladder continence 0-Always continent Bowel continence 0-Always continent - Endurance Fair - Balance Poor - Safety Awareness Fair POTENTIAL FUNCTIONAL GOALS FOR PATIENT TO ACHIEVE BY DISCHARGE: - Safety Precaution Patient will remain free from falls or injury at time of discharge. - Bed Mobility Patient will perform bed mobility at 4-Mikhail level of assistance. - Transfers Patient will complete transfers from bed to chair at 4-Mikhail level of assistance. - Mobility Patient will ambulate 150 ft with 4-Mikhail level of assistance with RW. PATIENT REHAB POTENTIAL Jax KAPLAN is able and expected to receive 3 hours of individualized therapy daily on at least 5 of every 7 days AdilsonRikki KAPLAN's prognosis for significant practical improvement within a reasonable period of time appe ars Good Expected level of measurable improvement will be of a practical value to Jax EUSEBIO's functional cap acity or adaptations to impairments Has a viable Discharge Plan Medically appropriate; condition is sufficiently stable to participate in intensive rehab program DISCHARGE PLAN: - Estimated Length of Stay (days) 13. - Consensus on plan Discharge plan has been discussed with primary caregiver. Patient/Family is in agreement with the monroe n. Primary caregiver is in agreement with the plan. - Patient/Family Goals Return home with assistance. - Planned Living Setting Upon Discharge Home, to live with Family/Relatives. Transitional Living. CONCLUSION ON REHABILITATION NECESSITY: I have evaluated patient's pre-admission functional status and, comparing it to the patient's post-ad mission functional status now, I conclude that the pre-admission assessment was accurate. Patient's c ondition on admission supports the medical necessity of admission to IR[facility]. It is safe to proceed with patient's therapy program. SIGNATURE PANEL: (JOURNEYMAN PRESSMAN)
[2019-10-05] MEDS: GABAPENTIN 300 MG CAP PO SCH (19:28)
[2019-10-05] MEDS: MAGNESIUM OXIDE 400 MG TAB PO SCH (19:28)
[2019-10-05] MEDS: ATORVASTATIN 10 MG TAB PO SCH (19:28)
[2019-10-05] MEDS: TRAZODONE 150 MG TAB PO SCH (19:28)
[2019-10-05] MEDS: APIXABAN 2.5 MG TABLET PO SCH (19:29)
[2019-10-05] MEDS ORDERED: FENOFIBRATE MICRONIZED PO SCH (21:00)
[2019-10-06] MEDS: LEVOTHYROXINE SOD 0.075 MG TAB PO SCH (06:35)
[2019-10-06 07:01] LABS: Absolute Lymphocytes (CBC) 1.8 K/uL (0.7-4.9); Basophils % 0.4 % (0-1.3); Hematocrit 30.2 % (36.0-45.0); MPV 7.7 fL (7.6-11.3); RBC Red Blood Cell Count 3.16 M/uL (3.86-4.86)
[2019-10-06 07:04] LABS: Albumin 3.2 g/dL (3.4-5.0); Magnesium 1.8 mg/dL (1.8-2.4); Prealbumin 15.2 mg/dL (20-40)
[2019-10-06] MEDS: MULTIVITAMIN TAB PO SCH (07:21)
[2019-10-06] MEDS: NICOTINE 14 MG/PAT TD SCH (07:21)
[2019-10-06] MEDS: MAGNESIUM OXIDE 400 MG TAB PO SCH ×2 (07:22→20:21)
[2019-10-06] MEDS: GABAPENTIN 300 MG CAP PO SCH ×2 (07:22→20:22)
[2019-10-06] MEDS: APIXABAN 2.5 MG TABLET PO SCH ×2 (07:22→20:21)
[2019-10-06] MEDS: VENLAFAXINE HCL XR 75 MG CAP PO SCH (07:22)
[2019-10-06] MEDS: HYDROCODONE/APAP 5/325 MG TAB PO PRN (07:28)
[2019-10-06] MEDS ORDERED: lisinopriL 20 MG TAB PO SCH (08:00)
[2019-10-06] MEDS: FERROUS SULFATE 325 MG TAB PO SCH (08:00)
[2019-10-06] MEDS ORDERED: SPIRONOLACTONE 25 MG TABLET PO SCH (08:00)
[2019-10-06] MEDS ORDERED: hydroCHLOROthiazide 12.5 MG CAP PO SCH (08:00)
[2019-10-06] MEDS ORDERED: LINZESS 72 MCG PO SCH (08:00)
[2019-10-06 08:32] LABS: Urine Appearance CLEAR; Urine Bilirubin NEGATIVE (NEG); Urine Blood NEGATIVE (NEG); Urine Color YELLOW; Urine Glucose NEGATIVE (NEG); Urine Protein NEGATIVE (NEG); Urine Specific Gravity <=1.005 (1.005-1.030); Urine pH 7.5 (5.0-7.0)
[2019-10-06 08:49] LABS: Urine Bacteria 20-50 /HPF (<20); Urine RBC <5 /HPF (NONE SEEN)
[2019-10-06 08:50] LABS: Urine Amorphous Sediment 1+ /HPF (NONE SEEN); Urine Culture Reflex Order REFLEXED; Urine Mucus 1+ /HPF (NONE SEEN)
[2019-10-06] MEDS: FE SULF/FA/VIT B COMP & C TAB PO SCH (09:02)
[2019-10-06] MEDS: PROMOD 30 ML DOSE PO SCH ×2 (09:03→20:00)
--- NOTE | 2019-10-06 09:49 | P.RH.PN ---
Estimated Length of Stay: 14 Expected Discharge Date: 10/18/19 Family Support: Yes Scarfer Operator Goal: Mobility, Transfers, Self Care Vital Signs: Last Vital Signs Temp 97 F 10/06/19 07:53 Pulse 89 10/06/19 07:53 Resp 18 10/06/19 08:28 BP 134/65 10/06/19 07:53 Pulse Ox 96 10/06/19 08:28 Laboratory: Laboratory Last Values WBC 7.7 K/uL (4.3-10.9) D 10/06/19 06:29 RBC 3.16 M/uL (3.86-4.86) L 10/06/19 06:29 Hgb 10.6 g/dL (12.0-15.0) L 10/06/19 06:29 Hct 30.2 % (36.0-45.0) L 10/06/19 06:29 MCV 95.3 fL (80-100) 10/06/19 06:29 MCH 33.5 pg (27.0-35.0) 10/06/19 06:29 MCHC 35.1 g/dL (32.0-36.0) 10/06/19 06:29 RDW 11.8 % (12.1-15.2) L 10/06/19 06:29 Plt Count 221 K/uL (152-406) 10/06/19 06:29 MPV 7.7 fL (7.6-11.3) 10/06/19 06:29 Neutrophils % 65.3 % (41.7-73.7) 10/06/19 06:29 Lymphocytes % 23.0 % (15.3-44.8) 10/06/19 06:29 Monocytes % 10.0 % (3.3-12.3) 10/06/19 06:29 Eosinophils % 1.3 % (0-4.4) 10/06/19 06:29 Basophils % 0.4 % (0-1.3) 10/06/19 06:29 Absolute Neutrophils 5.0 K/uL (1.8-8.0) 10/06/19 06:29 Absolute Lymphocytes 1.8 K/uL (0.7-4.9) 10/06/19 06:29 Absolute Monocytes 0.8 K/uL (0.1-1.3) 10/06/19 06:29 Absolute Eosinophils 0.1 K/uL (0-0.5) 10/06/19 06:29 Absolute Basophils 0.0 K/uL (0-0.5) 10/06/19 06:29 Sodium 140 mmol/L (136-145) 10/06/19 06:29 Potassium 4.0 mmol/L (3.5-5.1) 10/06/19 06:29 Chloride 106 mmol/L (98-107) 10/06/19 06:29 Carbon Dioxide 31 mmol/L (21-32) 10/06/19 06:29 BUN 8 mg/dL (7-18) 10/06/19 06:29 Creatinine 0.70 mg/dL (0.55-1.3) 10/06/19 06:29 Estimated GFR 82 mL/min (=/>90) L 10/06/19 06:29 Glucose 104 mg/dL (74-106) 10/06/19 06:29 Calcium 9.8 mg/dL (8.5-10.1) 10/06/19 06:29 Magnesium 1.8 mg/dL (1.8-2.4) 10/06/19 06:29 Albumin 3.2 g/dL (3.4-5.0) L 10/06/19 06:29 Prealbumin 15.2 mg/dL (20-40) L 10/06/19 06:29 Urine Color Yellow 10/06/19 07:40 Urine Appearance Clear 10/06/19 07:40 Urine pH 7.5 (5.0-7.0) H 10/06/19 07:40 Ur Specific [place] <=1.005 (1.005-1.030) 10/06/19 07:40 Urine Ketones Negative (NEG) 10/06/19 07:40 Urine Blood Negative (NEG) 10/06/19 07:40 Urine Nitrite Negative (NEG) 10/06/19 07:40 Urine Bilirubin Negative (NEG) 10/06/19 07:40 Urine Urobilinogen 1.0 mg/dL (0.2-1.0) 10/06/19 07:40 Ur Leukocyte Esterase Negative (NEG) 10/06/19 07:40 Urine RBC <5 /HPF (NONE SEEN) 10/06/19 07:40 Urine WBC <5 /HPF (<5) 10/06/19 07:40 Ur Squamous Epith Cells <5 /HPF (NONE SEEN) 10/06/19 07:40 Amorphous Sediment 1+ /HPF (NONE SEEN) 10/06/19 07:40 Urine Bacteria 20-50 /HPF (<20) H 10/06/19 07:40 Urine Mucus 1+ /HPF (NONE SEEN) 10/06/19 07:40 Urine Culture Reflexed Reflexed 10/06/19 07:40 Urine Glucose Negative (NEG) 10/06/19 07:40 Urine Total Protein Negative (NEG) 10/06/19 07:40 Weight: 221 lb Closed Surgical Incision Present: Yes Physician Update: Labs reviewed and are stable. She is done well with left leg none weight bearing status. She walked 10' with walker. Pain is well managed. Medical Issues: Patient is always continent with bladder and bowel Pain Issues: [place] 5/325mg Q4H PRN PO Functional Improvement: pt presents with moderate strength deficits in the L LE. pt demonstrates reduced balance and stability during ambulation and functional transfers. pt experiences poor tolerance to functional activity due to pain, fatigue, and weakness. pt is able to maintain NWB at this time, which is wonderful. pt does rapidly fatigue. Skilled PT services are necessary to address the above mentioned impairments and functional limitations. Summary: Patient's care plan and exterminator helper termite goals have been reviewed and revised as necessary. Please see the Rehabilitation Signature page for all necessary signatures.
--- NOTE | 2019-10-06 12:00 | P.PN ---
Subjective Date of Service: 10/06/19 Chief Complaint: s/p ORIF left ankle fracture Subjective: Working w/ PT pain controlled Physical Examination - Vital Signs Temperature: 97 F Blood Pressure: 134/65 Pulse: 89 Respirations: 18 Pulse Ox (%): 96 - Physical Exam General: Alert, In no apparent distress Musculoskeletal: Other (incisions c/d/i; no surrounding erythema; +EHL/FHL/GSC/ TA; sensation grossly intact over the dorsal and plantar foot; BCR all digits) - Studies Laboratory Data (last 24 hrs) 10/06/19 06:29: Sodium 140, Potassium 4.0, BUN 8, Creatinine 0.70, Glucose 104, Magnesium 1.8 10/06/19 06:29: WBC 7.7 D, Hgb 10.6 L, Hct 30.2 L, Plt Count 221 Assessment And Plan - Plan Natalya is a 74 yo female s/p I&D and ORIF of her left open ankle fracture POD#3 -dressing changed without complication; no signs of infection at this time -continue NWB LLE and mobilize with PT -patient with nausea and hypotension during dressing change and was taken back to bed; continue medical management per medicine team -f/u in 2 weeks for suture removal, xrays and placement of short leg cast
[2019-10-06] MEDS ORDERED: BISACODYL 10 MG RECTAL SUPP PR PRN (12:32)
--- NOTE | 2019-10-06 14:45 | FAST ---
ENCOUNTER DATE AND TIME: 10/06/2019 08:00 (DIAMOND DRILLER HELPER) NAME DIMITRY KAPLAN DATE OF : 1945 DATE OF ADMISSION: 10/05/2019 13:55 (DIAMOND DRILLER HELPER) PHONE: AGE: 74 SSN# [id number] GENDER: Female ENCOUNTER PHYSICIAN: Dr. Magdi Rosales M.D. ADMISSION DIAGNOSIS: - Debility 16 - Debility (16) Left Open Trimalleolar Ankle Fracture. EATING: Not assessed/no information CODE: - ORAL HYGIENE: ORAL HYGIENE - STEP 1: Does the patient complete the activity by him/herself with no assistance (physical, verbal/nonverbal cueing, setup/clean-up)? Yes. 1. [id number] ADMISSION PERFORMANCE: Independent CODE: 06 TOILETING HYGIENE: Not assessed/no information CODE: - BATHING: Not assessed/no information CODE: - DRESSING - UPPER BODY: Not assessed/no information CODE: - DRESSING - LOWER BODY: DRESSING - LOWER BODY - STEP 1: Does the patient complete the activity by him/herself with no assistance (physical, verbal/nonverbal cueing, setup/clean-up)? No. DRESSING - LOWER BODY - STEP 2: Does the patient need only setup/clean-up assistance from one helper? No. DRESSING - LOWER BODY - STEP 3: Does the patient need only verbal/nonverbal cueing or touching/steadying/contact guard assistance fro m one helper? No. DRESSING - LOWER BODY - STEP 4: Does the patient need physical assistance - for example lifting or trunk support from one helper - wi th the helper providing less than half of the effort? No. DRESSING - LOWER BODY - STEP 5: Does the patient need physical assistance - for example lifting or trunk support from one helper - wi th the helper providing more than half of the effort? No. DRESSING - LOWER BODY - STEP 6: Does the helper provide all of the effort? OR Is the assistance of two or more helpers required to co mplete the activity? Yes. 1. [id number] ADMISSION PERFORMANCE: Dependent CODE: 01 PUTTING ON/TAKING OFF FOOTWEAR: FOOTWEAR - STEP 1: Does the patient complete the activity by him/herself with no assistance (physical, verbal/nonverbal cueing, setup/clean-up)? No. FOOTWEAR - STEP 2: Does the patient need only setup/clean-up assistance from one helper? No. FOOTWEAR - STEP 3: Does the patient need only verbal/nonverbal cueing or touching/steadying/contact guard assistance fro m one helper? No. FOOTWEAR - STEP 4: Does the patient need physical assistance - for example lifting or trunk support from one helper - wi th the helper providing less than half of the effort? No. FOOTWEAR - STEP 5: Does the patient need physical assistance - for example lifting or trunk support from one helper - wi th the helper providing more than half of the effort? No. FOOTWEAR - STEP 6: Does the helper provide all of the effort? OR Is the assistance of two or more helpers required to co mplete the activity? Yes. 1. [id number] ADMISSION PERFORMANCE: Dependent CODE: 01 DOES THE PATIENT USE A WHEELCHAIR/SCOOTER? CODE: EXPR INDICATE THE TYPE OF WHEELCHAIR/SCOOTER USED: CODE: EXPR INDICATE THE TYPE OF WHEELCHAIR/SCOOTER USED: CODE: EXPR BLADDER AND BOWEL: CODE: EXPR CODE: EXPR SIGNATURE PANEL: The following modified sections: 1. [id number] Admission Performance, 1. [id number] Admission Performance, 1. [id number] Admission Performance were [electronically] signed by Luiza Aragon OT on WedOct 06 14:44:43 GMT-0600 (Central Standard Time)
[2019-10-06] MEDS: FISH OIL 1200 MG PO SCH (14:54)
[2019-10-06] MEDS: ATORVASTATIN 10 MG TAB PO SCH (20:22)
[2019-10-06] MEDS: TRAZODONE 150 MG TAB PO SCH (20:22)
[2019-10-06] MEDS: FENOFIBRATE MICRONIZED 67 MG PO SCH (20:23)
--- NOTE | 2019-10-06 22:06 | PN ---
Subjective: Patient is feeling well. Denies any chest pain, nausea, vomiting. When I saw her this morning, she was sitting in the chair eating breakfast. She later on had a phone call from nurses an d her blood pressure while sitting dropped down to 70 systolic. I asked them to lay her down and rem garth the diuretics, spironolactone from her blood pressure medications. Changed from lisinopril/hydr ochlorothiazide down to lisinopril without hydrochlorothiazide at 10 mg once a day. Hold if systolic blood pressure less than 110. Physical Examination: Vital Signs: Blood pressure 130/60, pulse 87. HEENT: No JVD. No carotid bruits. Chest: Clear. Heart: Regular. Abdomen: No guarding. No rebound. No rigidity. Assessment And Plan: 1.Orthostatic hypotension, most likely because of diuretic. This should improve. She does not have any other baseline reason for orthostatics. 2.Constipation. Rehab floor cannot give her Linzess which is quite expensive without bringing that from the office if she wants to try and if the medications do not work. She has this chronic constip ation issue, which should be treated with medicines like Linzess as milk of magnesia and MiraLAX have not worked. I would avoid Dulcolax and senna which is stimulant medications and not safe for the tiffany riley. MARKUS/BETY Voice ID: [id number] Report ID: [id number]
--- NOTE | 2019-10-07 02:06 | FAST ---
SHIFT START DATE/TIME: 10/05/2019 19:00 (GENERAL UTILITY MAINTENANCE REPAIRER) SHIFT END DATE/TIME: 10/06/2019 07:00 (GENERAL UTILITY MAINTENANCE REPAIRER) NAME DIMITRY KAPLAN DATE OF : 1945 DATE OF ADMISSION: 10/05/2019 13:55 (GENERAL UTILITY MAINTENANCE REPAIRER) PHONE: AGE: 74 SSN# [id number] GENDER: Female ENCOUNTER PHYSICIAN: Dr. Magdi Rosales M.D. ADMISSION DIAGNOSIS: - Debility 16 - Debility (16) Left Open Trimalleolar Ankle Fracture. EATING: Not assessed/no information CODE: - ORAL HYGIENE: ORAL HYGIENE - STEP 1: Does the patient complete the activity by him/herself with no assistance (physical, verbal/nonverbal cueing, setup/clean-up)? No. ORAL HYGIENE - STEP 2: Does the patient need only setup/clean-up assistance from one helper? Yes. 1. [id number] ADMISSION PERFORMANCE: Setup or clean-up assistance CODE: 05 TOILETING HYGIENE: TOILETING HYGIENE - STEP 1: Does the patient complete the activity by him/herself with no assistance (physical, verbal/nonverbal cueing, setup/clean-up)? No. TOILETING HYGIENE - STEP 2: Does the patient need only setup/clean-up assistance from one helper? No. TOILETING HYGIENE - STEP 3: Does the patient need only verbal/nonverbal cueing or touching/steadying/contact guard assistance fro m one helper? Yes. 1. [id number] ADMISSION PERFORMANCE: Supervision or touching assistance CODE: 04 BATHING: Not assessed/no information CODE: - DRESSING - UPPER BODY: Not assessed/no information CODE: - DRESSING - LOWER BODY: Not assessed/no information CODE: - PUTTING ON/TAKING OFF FOOTWEAR: Not assessed/no information CODE: - TRANSFERS: CAR: Not assessed/no information CODE: - WALK 10 FEET: Not assessed/no information CODE: - 1 STEP (CURB): Not assessed/no information CODE: - PICKING UP OBJECT: Not assessed/no information CODE: - DOES THE PATIENT USE A WHEELCHAIR/SCOOTER? CODE: EXPR WHEEL 50 FEET WITH TWO TURNS: Not assessed/no information CODE: - INDICATE THE TYPE OF WHEELCHAIR/SCOOTER USED: CODE: EXPR WHEEL 150 FEET: Not assessed/no information CODE: - INDICATE THE TYPE OF WHEELCHAIR/SCOOTER USED: CODE: EXPR BLADDER AND BOWEL: H350. BLADDER CONTINENCE (3-DAY ASSESSMENT PERIOD): Always continent (no documented incontinence) CODE: 0 H400. BOWEL CONTINENCE (3-DAY ASSESSMENT PERIOD): Always continent CODE: 0
--- NOTE | 2019-10-07 02:25 | FAST ---
SHIFT START DATE/TIME: 10/06/2019 19:00 (MANAGER NURSING) SHIFT END DATE/TIME: 10/07/2019 07:00 (MANAGER NURSING) NAME DIMITRY KAPLAN DATE OF : 1945 DATE OF ADMISSION: 10/05/2019 13:55 (MANAGER NURSING) PHONE: AGE: 74 SSN# [id number] GENDER: Female ENCOUNTER PHYSICIAN: Dr. Magdi Rosales M.D. ADMISSION DIAGNOSIS: - Debility 16 - Debility (16) Left Open Trimalleolar Ankle Fracture. EATING: Not assessed/no information CODE: - ORAL HYGIENE: ORAL HYGIENE - STEP 1: Does the patient complete the activity by him/herself with no assistance (physical, verbal/nonverbal cueing, setup/clean-up)? No. ORAL HYGIENE - STEP 2: Does the patient need only setup/clean-up assistance from one helper? Yes. 1. [id number] ADMISSION PERFORMANCE: Setup or clean-up assistance CODE: 05 TOILETING HYGIENE: TOILETING HYGIENE - STEP 1: Does the patient complete the activity by him/herself with no assistance (physical, verbal/nonverbal cueing, setup/clean-up)? No. TOILETING HYGIENE - STEP 2: Does the patient need only setup/clean-up assistance from one helper? No. TOILETING HYGIENE - STEP 3: Does the patient need only verbal/nonverbal cueing or touching/steadying/contact guard assistance fro m one helper? Yes. 1. [id number] ADMISSION PERFORMANCE: Supervision or touching assistance CODE: 04 BATHING: Not assessed/no information CODE: - DRESSING - UPPER BODY: Not assessed/no information CODE: - DRESSING - LOWER BODY: Not assessed/no information CODE: - PUTTING ON/TAKING OFF FOOTWEAR: Not assessed/no information CODE: - TRANSFERS: CAR: Not assessed/no information CODE: - WALK 10 FEET: Not assessed/no information CODE: - 1 STEP (CURB): Not assessed/no information CODE: - PICKING UP OBJECT: Not assessed/no information CODE: - DOES THE PATIENT USE A WHEELCHAIR/SCOOTER? CODE: EXPR WHEEL 50 FEET WITH TWO TURNS: Not assessed/no information CODE: - INDICATE THE TYPE OF WHEELCHAIR/SCOOTER USED: CODE: EXPR WHEEL 150 FEET: Not assessed/no information CODE: - INDICATE THE TYPE OF WHEELCHAIR/SCOOTER USED: CODE: EXPR BLADDER AND BOWEL: H350. BLADDER CONTINENCE (3-DAY ASSESSMENT PERIOD): Always continent (no documented incontinence) CODE: 0 H400. BOWEL CONTINENCE (3-DAY ASSESSMENT PERIOD): Always continent CODE: 0
[2019-10-07 05:52] VITALS: BMI 30.4
[2019-10-07] MEDS ORDERED: LINACLOTIDE 145 MCG PO SCH (06:30)
[2019-10-07] MEDS: LEVOTHYROXINE SOD 0.075 MG TAB PO SCH (06:45)
[2019-10-07] MEDS: LINZESS 72 MCG PO SCH (07:00)
[2019-10-07] MEDS: VENLAFAXINE HCL XR 75 MG CAP PO SCH (08:17)
[2019-10-07] MEDS: HYDROCODONE/APAP 5/325 MG TAB PO PRN ×2 (08:17→19:25)
[2019-10-07] MEDS: FE SULF/FA/VIT B COMP & C TAB PO SCH (08:18)
[2019-10-07] MEDS: GABAPENTIN 300 MG CAP PO SCH ×2 (08:18→19:23)
[2019-10-07] MEDS: MAGNESIUM OXIDE 400 MG TAB PO SCH ×2 (08:18→19:24)
[2019-10-07] MEDS: FERROUS SULFATE 325 MG TAB PO SCH (08:18)
[2019-10-07] MEDS: APIXABAN 2.5 MG TABLET PO SCH ×2 (08:18→19:23)
[2019-10-07] MEDS: NICOTINE 14 MG/PAT TD SCH (08:19)
[2019-10-07] MEDS: MULTIVITAMIN TAB PO SCH (08:19)
[2019-10-07] MEDS: FISH OIL 1200 MG PO SCH (09:11)
[2019-10-07] MEDS: PROMOD 30 ML DOSE PO SCH ×2 (09:11→19:26)
[2019-10-07] MEDS: lisinopriL 10 MG TAB PO SCH (12:28)
[2019-10-07] MEDS: MAGNESIUM HYDROXIDE 8% 30 ML PO SCH ×2 (12:29→19:20)
--- NOTE | 2019-10-07 12:57 | FAST ---
ENCOUNTER DATE AND TIME: 10/07/2019 08:00 (PROCESS STEWARD) NAME DIMITRY KAPLAN DATE OF : 1945 DATE OF ADMISSION: 10/05/2019 13:55 (PROCESS STEWARD) PHONE: AGE: 74 N# [id number] GENDER: Female ENCOUNTER PHYSICIAN: Dr. Magdi Rosales M.D. ADMISSION DIAGNOSIS: - Debility 16 - Debility (16) Left Open Trimalleolar Ankle Fracture. EATING: EATING - STEP 1: Does the patient complete the activity by him/herself with no assistance (physical, verbal/nonverbal cueing, setup/clean-up)? Yes. 1. [id number] ADMISSION PERFORMANCE: Independent CODE: 06 ORAL HYGIENE: ORAL HYGIENE - STEP 1: Does the patient complete the activity by him/herself with no assistance (physical, verbal/nonverbal cueing, setup/clean-up)? Yes. 1. [id number] ADMISSION PERFORMANCE: Independent CODE: 06 TOILETING HYGIENE: Not assessed/no information CODE: - BATHING: SHOWER/BATHE SELF - STEP 1: Does the patient complete the activity by him/herself with no assistance (physical, verbal/nonverbal cueing, setup/clean-up)? No. SHOWER/BATHE SELF - STEP 2: Does the patient need only setup/clean-up assistance from one helper? No. SHOWER/BATHE SELF - STEP 3: Does the patient need only verbal/nonverbal cueing or touching/steadying/contact guard assistance fro m one helper? No. SHOWER/BATHE SELF - STEP 4: Does the patient need physical assistance - for example lifting or trunk support from one helper - wi th the helper providing less than half of the effort? Yes. 1. [id number] ADMISSION PERFORMANCE: Partial/moderate assistance CODE: 03 DRESSING - UPPER BODY: DRESSING - UPPER BODY - STEP 1: Does the patient complete the activity by him/herself with no assistance (physical, verbal/nonverbal cueing, setup/clean-up)? No. DRESSING - UPPER BODY - STEP 2: Does the patient need only setup/clean-up assistance from one helper? Yes. 1. [id number] ADMISSION PERFORMANCE: Setup or clean-up assistance CODE: 05 DRESSING - LOWER BODY: DRESSING - LOWER BODY - STEP 1: Does the patient complete the activity by him/herself with no assistance (physical, verbal/nonverbal cueing, setup/clean-up)? No. DRESSING - LOWER BODY - STEP 2: Does the patient need only setup/clean-up assistance from one helper? No. DRESSING - LOWER BODY - STEP 3: Does the patient need only verbal/nonverbal cueing or touching/steadying/contact guard assistance fro m one helper? No. DRESSING - LOWER BODY - STEP 4: Does the patient need physical assistance - for example lifting or trunk support from one helper - wi th the helper providing less than half of the effort? Yes. 1. [id number] ADMISSION PERFORMANCE: Partial/moderate assistance CODE: 03 PUTTING ON/TAKING OFF FOOTWEAR: FOOTWEAR - STEP 1: Does the patient complete the activity by him/herself with no assistance (physical, verbal/nonverbal cueing, setup/clean-up)? No. FOOTWEAR - STEP 2: Does the patient need only setup/clean-up assistance from one helper? No. FOOTWEAR - STEP 3: Does the patient need only verbal/nonverbal cueing or touching/steadying/contact guard assistance fro m one helper? No. FOOTWEAR - STEP 4: Does the patient need physical assistance - for example lifting or trunk support from one helper - wi th the helper providing less than half of the effort? No. FOOTWEAR - STEP 5: Does the patient need physical assistance - for example lifting or trunk support from one helper - wi th the helper providing more than half of the effort? No. FOOTWEAR - STEP 6: Does the helper provide all of the effort? OR Is the assistance of two or more helpers required to co mplete the activity? Yes. 1. [id number] ADMISSION PERFORMANCE: Dependent CODE: 01 DOES THE PATIENT USE A WHEELCHAIR/SCOOTER? CODE: EXPR INDICATE THE TYPE OF WHEELCHAIR/SCOOTER USED: CODE: EXPR INDICATE THE TYPE OF WHEELCHAIR/SCOOTER USED: CODE: EXPR BLADDER AND BOWEL: CODE: EXPR CODE: EXPR SIGNATURE PANEL: The following modified sections: 1. [id number] Admission Performance, 1. [id number] Admission Performance, 1. [id number] Admission Performance, 1. [id number] Admission Performance, 1. [id number] Admission Performance, 1. [id number] Admission Performance were [electronically] signed by Luiza Aragon OT on Sat Oct 07 12:55:52 GMT-0600 (Central Standard Time)
[2019-10-07] MEDS: POLYETHYL GLY 3350 17 GM/DOSE PO SCH (14:39)
[2019-10-07] MEDS: ATORVASTATIN 10 MG TAB PO SCH (19:23)
[2019-10-07] MEDS: FENOFIBRATE MICRONIZED 67 MG PO SCH (19:23)
[2019-10-07] MEDS: TRAZODONE 150 MG TAB PO SCH (19:24)
--- NOTE | 2019-10-08 00:46 | PN ---
Subjective: Ms. Choudhary is doing a lot better. She denies any chest pain, nausea, vomiting. Her c onstipation is ongoing for last couple of years. She has tried outpatient Dulcolax, which I recommen d not to do any longer. Medicines like Dulcolax are stimulants and can give you chronic constipation or obstipation, which is why they are not advisable on routine basis. Physical Examination: Vital Signs: Blood pressure is lot better today 140-117 systolics. She is afebrile. HEENT: No JVD. No carotid bruits. Chest: Clear. Heart: Irregular. Extremities: Left ankle in a cast postoperatively. Assessment And Plan: 1.Ankle fracture, managed by [facility]. 2.Chronic obstructive pulmonary disease, currently stable. She is a current smoker. Does not reall y want to quit smoking. 3.Orthostatic hypertension has improved clinically after I modify the medications. 4.Chronic constipation. She will be tried on Linzess on a daily basis on rehab floor because they h ave limited funding, they cannot be giving Linzess. I will give her some samples to try from office and will try MiraLax and Milk of Magnesia on a daily basis to see if she has good results from simple management like that, which will be safe for the intestines and not a stimulant-like medication. MARKUS/BETY Voice ID: [id number] Report ID: [id number]
[2019-10-08] MEDS: LINZESS 72 MCG PO SCH (06:25)
[2019-10-08] MEDS: LEVOTHYROXINE SOD 0.075 MG TAB PO SCH (06:25)
[2019-10-08] MEDS: PROMOD 30 ML DOSE PO SCH ×3 (08:00→19:45)
[2019-10-08] MEDS: POLYETHYL GLY 3350 17 GM/DOSE PO SCH (08:06)
[2019-10-08] MEDS: MAGNESIUM HYDROXIDE 8% 30 ML PO SCH ×2 (08:06→19:44)
[2019-10-08] MEDS: NICOTINE 14 MG/PAT TD SCH (08:08)
[2019-10-08] MEDS: FISH OIL 1200 MG PO SCH (08:09)
[2019-10-08] MEDS: FERROUS SULFATE 325 MG TAB PO SCH (08:10)
[2019-10-08] MEDS: lisinopriL 10 MG TAB PO SCH (08:10)
[2019-10-08] MEDS: VENLAFAXINE HCL XR 75 MG CAP PO SCH (08:11)
[2019-10-08] MEDS: GABAPENTIN 300 MG CAP PO SCH ×2 (08:11→19:44)
[2019-10-08] MEDS: MAGNESIUM OXIDE 400 MG TAB PO SCH ×2 (08:11→19:44)
[2019-10-08] MEDS: APIXABAN 2.5 MG TABLET PO SCH ×2 (08:11→19:43)
[2019-10-08] MEDS: FE SULF/FA/VIT B COMP & C TAB PO SCH (08:11)
[2019-10-08] MEDS: MULTIVITAMIN TAB PO SCH (08:11)
--- NOTE | 2019-10-08 11:27 | FAST ---
SHIFT START DATE/TIME: 10/08/2019 07:00 (BUTCHER CHICKEN AND FISH) SHIFT END DATE/TIME: 10/08/2019 19:00 (BUTCHER CHICKEN AND FISH) NAME DIMITRY KAPLAN DATE OF : 1945 DATE OF ADMISSION: 10/05/2019 13:55 (BUTCHER CHICKEN AND FISH) PHONE: AGE: 74 SSN# [id number] GENDER: Female ENCOUNTER PHYSICIAN: Dr. Magdi Rosales M.D. ADMISSION DIAGNOSIS: - Debility 16 - Debility (16) Left Open Trimalleolar Ankle Fracture. EATING: EATING - STEP 1: Does the patient complete the activity by him/herself with no assistance (physical, verbal/nonverbal cueing, setup/clean-up)? No. EATING - STEP 2: Does the patient need only setup/clean-up assistance from one helper? Yes. 1. [id number] ADMISSION PERFORMANCE: Setup or clean-up assistance CODE: 05 ORAL HYGIENE: ORAL HYGIENE - STEP 1: Does the patient complete the activity by him/herself with no assistance (physical, verbal/nonverbal cueing, setup/clean-up)? Yes. 1. [id number] ADMISSION PERFORMANCE: Independent CODE: 06 TOILETING HYGIENE: TOILETING HYGIENE - STEP 1: Does the patient complete the activity by him/herself with no assistance (physical, verbal/nonverbal cueing, setup/clean-up)? No. TOILETING HYGIENE - STEP 2: Does the patient need only setup/clean-up assistance from one helper? Yes. 1. [id number] ADMISSION PERFORMANCE: Setup or clean-up assistance CODE: 05 BATHING: Not assessed/no information CODE: - DRESSING - UPPER BODY: DRESSING - UPPER BODY - STEP 1: Does the patient complete the activity by him/herself with no assistance (physical, verbal/nonverbal cueing, setup/clean-up)? No. DRESSING - UPPER BODY - STEP 2: Does the patient need only setup/clean-up assistance from one helper? Yes. 1. [id number] ADMISSION PERFORMANCE: Setup or clean-up assistance CODE: 05 DRESSING - LOWER BODY: DRESSING - LOWER BODY - STEP 1: Does the patient complete the activity by him/herself with no assistance (physical, verbal/nonverbal cueing, setup/clean-up)? No. DRESSING - LOWER BODY - STEP 2: Does the patient need only setup/clean-up assistance from one helper? Yes. 1. [id number] ADMISSION PERFORMANCE: Setup or clean-up assistance CODE: 05 PUTTING ON/TAKING OFF FOOTWEAR: FOOTWEAR - STEP 1: Does the patient complete the activity by him/herself with no assistance (physical, verbal/nonverbal cueing, setup/clean-up)? Yes. 1. [id number] ADMISSION PERFORMANCE: Independent CODE: 06 TRANSFERS: CAR: Not assessed/no information CODE: - WALK 10 FEET: Not assessed/no information CODE: - 1 STEP (CURB): Not assessed/no information CODE: - PICKING UP OBJECT: Not assessed/no information CODE: - DOES THE PATIENT USE A WHEELCHAIR/SCOOTER? Q1. DOES THE PATIENT USE A WHEELCHAIR/SCOOTER?: Yes CODE: 1 WHEEL 50 FEET WITH TWO TURNS: WHEEL 50 FEET WITH TWO TURNS - STEP 1: Does the patient complete the activity by him/herself with no assistance (physical, verbal/nonverbal cueing, setup/clean-up)? Yes. 1. [id number] ADMISSION PERFORMANCE: Independent CODE: 06 INDICATE THE TYPE OF WHEELCHAIR/SCOOTER USED: RR1. INDICATE THE TYPE OF WHEELCHAIR/SCOOTER USED.: Manual CODE: 1 WHEEL 150 FEET: WHEEL 150 FEET - STEP 1: Does the patient complete the activity by him/herself with no assistance (physical, verbal/nonverbal cueing, setup/clean-up)? Yes. 1. [id number] ADMISSION PERFORMANCE: Independent CODE: 06 INDICATE THE TYPE OF WHEELCHAIR/SCOOTER USED: SS1. INDICATE THE TYPE OF WHEELCHAIR/SCOOTER USED.: Manual CODE: 1 BLADDER AND BOWEL: H350. BLADDER CONTINENCE (3-DAY ASSESSMENT PERIOD): Always continent (no documented incontinence) CODE: 0 H400. BOWEL CONTINENCE (3-DAY ASSESSMENT PERIOD): Always continent CODE: 0 SIGNATURE PANEL: The following modified sections: 1. [id number] Admission Performance, 1. [id number] Admission Performance, 1. [id number] Admission Performance, 1. [id number] Admission Performance, 1. GR5378g Admission Performance, 1. [id number] Admission Performance, Q1. Does the patient use a wheelchair/scooter?, 1. [id number] Admissi on Performance, RR1. Indicate the type of wheelchair/scooter used., 1. [id number] Admission Performance, Code, SS1. Indicate the type of wheelchair/scooter used., H350. Bladder Continence (3-day assessment period), H400. Bowel Continence (3-day assessment period) were [electronically] signed by Janeen Aparicio in, C.N.A. on WedOct 08 2019 11:26:20 GMT-0600 (Central Standard Time)
[2019-10-08] MEDS: HYDROCODONE/APAP 5/325 MG TAB PO PRN (19:43)
[2019-10-08] MEDS: FENOFIBRATE MICRONIZED 67 MG PO SCH (21:22)
[2019-10-08] MEDS: TRAZODONE 150 MG TAB PO SCH (21:22)
[2019-10-08] MEDS: ATORVASTATIN 10 MG TAB PO SCH (21:22)
--- NOTE | 2019-10-08 22:19 | PN ---
Subjective: Patient is doing well. Does not have any more syncopal episodes. Her blood pressure is stable at 130/67. She had a bowel movement according to nurses and she is now on a regimen for milk of magnesia and MiraLAX on a daily basis. I have advised her not to use Dulcolax. Should be using on routine basis, which will complicate her constipation in a long run. MARKUS/BETY Voice ID: [id number] Report ID: [id number]
--- NOTE | 2019-10-09 02:15 | FAST ---
SHIFT START DATE/TIME: 10/08/2019 19:00 (RAIL SIGNAL WORKER) SHIFT END DATE/TIME: 10/09/2019 07:00 (RAIL SIGNAL WORKER) NAME DIMITRY KAPLAN DATE OF : 1945 DATE OF ADMISSION: 10/05/2019 13:55 (RAIL SIGNAL WORKER) PHONE: AGE: 74 SSN# [id number] GENDER: Female ENCOUNTER PHYSICIAN: Dr. Magdi Rosales M.D. ADMISSION DIAGNOSIS: - Debility 16 - Debility (16) Left Open Trimalleolar Ankle Fracture. EATING: Not assessed/no information CODE: - ORAL HYGIENE: ORAL HYGIENE - STEP 1: Does the patient complete the activity by him/herself with no assistance (physical, verbal/nonverbal cueing, setup/clean-up)? No. ORAL HYGIENE - STEP 2: Does the patient need only setup/clean-up assistance from one helper? Yes. 1. [id number] ADMISSION PERFORMANCE: Setup or clean-up assistance CODE: 05 TOILETING HYGIENE: TOILETING HYGIENE - STEP 1: Does the patient complete the activity by him/herself with no assistance (physical, verbal/nonverbal cueing, setup/clean-up)? No. TOILETING HYGIENE - STEP 2: Does the patient need only setup/clean-up assistance from one helper? No. TOILETING HYGIENE - STEP 3: Does the patient need only verbal/nonverbal cueing or touching/steadying/contact guard assistance fro m one helper? Yes. 1. [id number] ADMISSION PERFORMANCE: Supervision or touching assistance CODE: 04 BATHING: Not assessed/no information CODE: - DRESSING - UPPER BODY: Not assessed/no information CODE: - DRESSING - LOWER BODY: Not assessed/no information CODE: - PUTTING ON/TAKING OFF FOOTWEAR: Not assessed/no information CODE: - TRANSFERS: CAR: Not assessed/no information CODE: - WALK 10 FEET: Not assessed/no information CODE: - 1 STEP (CURB): Not assessed/no information CODE: - PICKING UP OBJECT: Not assessed/no information CODE: - DOES THE PATIENT USE A WHEELCHAIR/SCOOTER? CODE: EXPR WHEEL 50 FEET WITH TWO TURNS: Not assessed/no information CODE: - INDICATE THE TYPE OF WHEELCHAIR/SCOOTER USED: CODE: EXPR WHEEL 150 FEET: Not assessed/no information CODE: - INDICATE THE TYPE OF WHEELCHAIR/SCOOTER USED: CODE: EXPR BLADDER AND BOWEL: H350. BLADDER CONTINENCE (3-DAY ASSESSMENT PERIOD): Always continent (no documented incontinence) CODE: 0 H400. BOWEL CONTINENCE (3-DAY ASSESSMENT PERIOD): Always continent CODE: 0
[2019-10-09] MEDS: LINZESS 72 MCG PO SCH (06:30)
[2019-10-09] MEDS: LEVOTHYROXINE SOD 0.075 MG TAB PO SCH (06:46)
[2019-10-09] MEDS: POLYETHYL GLY 3350 17 GM/DOSE PO SCH (08:00)
[2019-10-09] MEDS: PROMOD 30 ML DOSE PO SCH ×2 (08:00→20:00)
[2019-10-09] MEDS: MAGNESIUM HYDROXIDE 8% 30 ML PO SCH ×2 (08:00→20:00)
[2019-10-09] MEDS: MULTIVITAMIN TAB PO SCH (08:00)
[2019-10-09] MEDS: NICOTINE 14 MG/PAT TD SCH (08:15)
[2019-10-09] MEDS: FERROUS SULFATE 325 MG TAB PO SCH (08:16)
[2019-10-09] MEDS: GABAPENTIN 300 MG CAP PO SCH ×2 (08:16→20:26)
[2019-10-09] MEDS: MAGNESIUM OXIDE 400 MG TAB PO SCH ×2 (08:16→20:25)
[2019-10-09] MEDS: VENLAFAXINE HCL XR 75 MG CAP PO SCH (08:16)
[2019-10-09] MEDS: FE SULF/FA/VIT B COMP & C TAB PO SCH (08:16)
[2019-10-09] MEDS: APIXABAN 2.5 MG TABLET PO SCH ×2 (08:17→20:30)
[2019-10-09] MEDS: HYDROCODONE/APAP 5/325 MG TAB PO PRN ×2 (08:17→16:11)
[2019-10-09] MEDS: lisinopriL 10 MG TAB PO SCH (08:18)
[2019-10-09] MEDS: FISH OIL 1200 MG PO SCH (08:57)
--- NOTE | 2019-10-09 15:29 | FAST ---
ENCOUNTER DATE AND TIME: 10/09/2019 08:00 (INPATIENT CARE MANAGER RN) NAME DIMITRY KAPLAN DATE OF : 1945 DATE OF ADMISSION: 10/05/2019 13:55 (INPATIENT CARE MANAGER RN) PHONE: AGE: 74 N# [id number] GENDER: Female ENCOUNTER PHYSICIAN: Dr. Magdi Rosales M.D. ADMISSION DIAGNOSIS: - Debility 16 - Debility (16) Left Open Trimalleolar Ankle Fracture. EATING: Not attempted due to environmental limitations (e.g., lack of equipment, weather constraints) CODE: 10 ORAL HYGIENE: Not assessed/no information CODE: - TOILETING HYGIENE: Not assessed/no information CODE: - BATHING: SHOWER/BATHE SELF - STEP 1: Does the patient complete the activity by him/herself with no assistance (physical, verbal/nonverbal cueing, setup/clean-up)? No. SHOWER/BATHE SELF - STEP 2: Does the patient need only setup/clean-up assistance from one helper? Yes. 1. [id number] ADMISSION PERFORMANCE: Setup or clean-up assistance CODE: 05 DRESSING - UPPER BODY: DRESSING - UPPER BODY - STEP 1: Does the patient complete the activity by him/herself with no assistance (physical, verbal/nonverbal cueing, setup/clean-up)? Yes. 1. [id number] ADMISSION PERFORMANCE: Independent CODE: 06 DRESSING - LOWER BODY: DRESSING - LOWER BODY - STEP 1: Does the patient complete the activity by him/herself with no assistance (physical, verbal/nonverbal cueing, setup/clean-up)? No. DRESSING - LOWER BODY - STEP 2: Does the patient need only setup/clean-up assistance from one helper? No. DRESSING - LOWER BODY - STEP 3: Does the patient need only verbal/nonverbal cueing or touching/steadying/contact guard assistance fro m one helper? Yes. 1. [id number] ADMISSION PERFORMANCE: Supervision or touching assistance CODE: 04 PUTTING ON/TAKING OFF FOOTWEAR: FOOTWEAR - STEP 1: Does the patient complete the activity by him/herself with no assistance (physical, verbal/nonverbal cueing, setup/clean-up)? Yes. 1. [id number] ADMISSION PERFORMANCE: Independent CODE: 06 DOES THE PATIENT USE A WHEELCHAIR/SCOOTER? CODE: EXPR INDICATE THE TYPE OF WHEELCHAIR/SCOOTER USED: CODE: EXPR INDICATE THE TYPE OF WHEELCHAIR/SCOOTER USED: CODE: EXPR BLADDER AND BOWEL: CODE: EXPR CODE: EXPR SIGNATURE PANEL: The following modified sections: 1. [id number] Admission Performance, 1. [id number] Admission Performance, 1. [id number] Admission Performance, 1. [id number] Admission Performance were [electronically] signed by Juan Francisco Aragon OT on WedOct 09 2019 15:28:09 GMT-0600 (Central Standard Time)
--- NOTE | 2019-10-09 17:25 | R.PN ---
ENCOUNTER DATE AND TIME: 10/09/2019 17:19 (CONTACT CENTER ASSOCIATE) NAME DIMITRY CHOUDHARY DATE OF : 1945 DATE OF ADMISSION: 10/05/2019 13:55 (CONTACT CENTER ASSOCIATE) Left Open Trimalleolar Ankle FractureCHIEF COMPLAINT: Left leg fracture SUBJECTIVE: Pt denied any depression. Pt denied any Shortness of Breath. She reports mild muscle spasms in her left leg after physical therapy. She is doing well with physica l and occupational therapy. Hgb 10.6, prealbumin 15.2. VITAL SIGNS Temperature: 97.2 F SBP/DBP: 134/60 Pulse: 85 Resp: 14 MEDICATION ALLERGIES: No Known Drug Allergies (NKDA) ENVIRONMENTAL ALLERGIES: None Known - Substance Allergies None Known - Other Allergies None Known NURSING: - Shower allowing shower PRECAUTIONS: - Weight Bearing Precaution NWB left LE ACTIVITIES OOB only with supervision THERAPIES: - Dietary and Nutrition Adequate Nutrition. Nutritional Education. Nutritional Supplements. PHYSICAL EXAM - Gen Alert and awake Lying in bed No apparent distress Oriented to: person, time, and place - Skin No skin breakdown. Normacephalic - Eyes No abnormalities - ENMT No abnormalities - Neck No abnormalities - CVS RRR - Chest No abnormalities - Resp Clear to auscultation - Abd Soft - GI Non distended Deferred - No abnormalities - Ext Left leg in brace following ORIF. - MSK 4+/5 weakness in left lower extremity - Neuro 4/5 strength left lower extremity. - Psych No abnormalities ASSESSMENT: Pt. is a 74 yo Right-handed white female.On 10/02/2019 she was admitted to [facility] with diagnosis Left Open Trimalleolar Ankle Fracture.Her impairment category is Debility 16 - Debility (16).Pre-morbidly, Pt. was independent/mod-I in Locomotion, Safety Awareness, Balance, Soci al Cognition, Transfers Control, Self-Care, Sphincter Control, Communication, and Endurance; and she had good Locomotion, Safety Awareness, Social Cognition, Balance, Transfers Control, Sphincter Contro l, Self-Care, Communication, and Endurance.Currently, she has deficits of Locomotion, Safety Awarenes s, Transfers Control, Self-Care, and Endurance.Pt. is now referred to [facility] for acute in-patient rehabilitation in order to maximize patient's functional independence in acti vities of daily living, strength, ROM, and mobility.- Rehab Goal Patient has realistic goal of being discharged at assistance level 6-Veronique to reside at Home with Fam marjorie/Relatives. MDM/PLAN: - Physical Therapy Gait dysfunction - to improve, our physical therapists will perform initial evaluation of pt's statu s upon admission and devise an individualized program for Gait Training, and Wheel Chair mobility Inability to transfer - to improve, our physical therapists will perform initial evaluation of pt's status upon admission and devise an individualized program for Bed mobility Need for home safety evaluation - to improve, our physical therapists will perform initial evaluatio n of pt's status upon admission and devise an individualized program for Home Evaluation Need in caregiver upon discharge - to improve, our physical therapists will perform initial evaluati on of pt's status upon admission and devise an individualized program for Caregiver Training New precaution - to improve, our physical therapists will perform initial evaluation of pt's status upon admission and devise an individualized program for Patient precaution education Poor endurance - to improve, our physical therapists will perform initial evaluation of pt's status upon admission and devise an individualized program for Endurance Training Weakness - to improve, our physical therapists will perform initial evaluation of pt's status upon a dmission and devise an individualized program for Aquatic Therapy, Neuromuscular Reeducation, and Str engthening Achieving independence - to improve, our physical therapists will perform initial evaluation of pt's status upon admission and devise an individualized program for Community Reintegration Activities - Occupational Therapy ADL deficits - to improve, our occupation therapists will perform initial evaluation of pt's status upon admission and devise an individualized program for Bathing, Bed mobility, Community Reintegratio n, Cooking, Dressing, Eating, Fine Motor Skills, Grooming, Homemaking, Kitchen Mobility, Laundry, Pat ient Education, Safety Awareness, Splinting - Positioning, Transfers(Toilet, Tub, Shower), and Wheel Chair Management Need for critical care clinical nurse specialist - to improve, our occupation therapists will perform initial evaluation of pt's status upon admission and devise an individualized program for Caregiver Training Weakness - to improve, our occupation therapists will perform initial evaluation of pt's status upon admission and devise an individualized program for Aquatic Therapy, Balance, Endurance, UE ROM, and UE strengthening - Other See attached MAR (Medication Administration Record) See attached MAR (Medication Administration Record) Dimitry Choudhary.pdf See attached MAR (Medication Administration Record) Dimitry Choudhary.pdf - Diet Type Continue Regular - Diet - Liquid Texture Continue Regular - Tube Feed Continue N/A - Weight Bearing Precaution NWB left LE - Diet - Solid Texture Continue Regular - Shower allowing shower FUNCTIONAL STATUS: UPDATED AT WEEKLY TEAM CONFERENCE - Bladder Same accident frequency: 7-Ind - No accidents in the past 7 days - Bowel Same accident frequency: 7-Ind - No accidents in the past 7 days - Walking Same score based on distance walked: 0(N/A) - Wheelchair Same score based on distance traveled: 0(N/A) FUNCTIONAL STATUS: - Self-Care A. Eating Ind B. Grooming Veronique C. Bathing Mikhail D. Dressing - Upper Mikhail E. Dressing - Lower modA F. Toileting sup - Sphincter Control G. Bladder control Veronique H. Bowel control Veronique - Transfers Control I. Bed/Chair/Wheelchair sup J. Toilet Mikhail K. Tub/Shower modA - Locomotion L. Walk/Wheelchair (C) sup M. Stairs maxA - Communication N. Comprehension (B) Ind O. Expression (B) Ind - Social Cognition P. Social Interaction Ind Q. Problem Solving Ind R. Memory Ind - Endurance Good - Balance Good - Safety Awareness Good QI SCORES: - Self-Care A. Eating 05-Setup or clean-up assistance B. Oral hygiene 05-Setup or clean-up assistance C. Toileting hygiene 03-Partial/moderate assistance E. Shower/bathe self 04-Supervision or touching assistance F. Upper body dressing 05-Setup or clean-up assistance G. Lower body dressing 02-Substantial/maximal assistance H. Putting on/taking off footwear 02-Substantial/maximal assistance - Mobility A. Roll left and right 03-Partial/moderate assistance B. Sit to lying 03-Partial/moderate assistance C. Lying to sitting on side of bed 03-Partial/moderate assistance D. Sit to stand 01-Dependent E. Chair/[id number]-tw-[id number] transfer 02-Substantial/maximal assistance F. Toilet transfer 02-Substantial/maximal assistance G. Car transfer 88-Not attempted due to medical condition or safety concerns I. Walk 10 feet 88-Not attempted due to medical condition or safety concerns J. Walk 50 feet with two turns 88-Not attempted due to medical condition or safety concerns K. Walk 150 feet 88-Not attempted due to medical condition or safety concerns L. Walking 10 feet on uneven surfaces 88-Not attempted due to medical condition or safety concerns M. 1 step (curb) 88-Not attempted due to medical condition or safety concerns N. 4 steps 88-Not attempted due to medical condition or safety concerns O. 12 steps 88-Not attempted due to medical condition or safety concerns P. Picking up object 88-Not attempted due to medical condition or safety concerns R. Wheel 50 feet with two turns 88-Not attempted due to medical condition or safety concerns S. Wheel 150 feet 88-Not attempted due to medical condition or safety concerns - Bladder and Bowel Bladder continence 0-Always continent Bowel continence 0-Always continent - Endurance Fair - Balance Poor - Safety Awareness Fair CURRENT FUNC. DEFICITS: Self-Care, Mobility, Endurance, Balance, and Safety Awareness SIGNATURE PANEL: (CONTACT CENTER ASSOCIATE)
--- NOTE | 2019-10-09 17:59 | FAST ---
SHIFT START DATE/TIME: 10/09/2019 07:00 (MINES INSPECTOR) SHIFT END DATE/TIME: 10/09/2019 19:00 (MINES INSPECTOR) NAME DIMITRY KAPLAN DATE OF : 1945 DATE OF ADMISSION: 10/05/2019 13:55 (MINES INSPECTOR) PHONE: AGE: 74 SSN# [id number] GENDER: Female ENCOUNTER PHYSICIAN: Dr. Magdi Rosales M.D. ADMISSION DIAGNOSIS: - Debility 16 - Debility (16) Left Open Trimalleolar Ankle Fracture. EATING: EATING - STEP 1: Does the patient complete the activity by him/herself with no assistance (physical, verbal/nonverbal cueing, setup/clean-up)? No. EATING - STEP 2: Does the patient need only setup/clean-up assistance from one helper? Yes. 1. [id number] ADMISSION PERFORMANCE: Setup or clean-up assistance CODE: 05 ORAL HYGIENE: ORAL HYGIENE - STEP 1: Does the patient complete the activity by him/herself with no assistance (physical, verbal/nonverbal cueing, setup/clean-up)? No. ORAL HYGIENE - STEP 2: Does the patient need only setup/clean-up assistance from one helper? No. ORAL HYGIENE - STEP 3: Does the patient need only verbal/nonverbal cueing or touching/steadying/contact guard assistance fro m one helper? Yes. 1. [id number] ADMISSION PERFORMANCE: Supervision or touching assistance CODE: 04 TOILETING HYGIENE: TOILETING HYGIENE - STEP 1: Does the patient complete the activity by him/herself with no assistance (physical, verbal/nonverbal cueing, setup/clean-up)? No. TOILETING HYGIENE - STEP 2: Does the patient need only setup/clean-up assistance from one helper? No. TOILETING HYGIENE - STEP 3: Does the patient need only verbal/nonverbal cueing or touching/steadying/contact guard assistance fro m one helper? Yes. 1. [id number] ADMISSION PERFORMANCE: Supervision or touching assistance CODE: 04 BATHING: Not assessed/no information CODE: - DRESSING - UPPER BODY: Not assessed/no information CODE: - DRESSING - LOWER BODY: Not assessed/no information CODE: - PUTTING ON/TAKING OFF FOOTWEAR: Not assessed/no information CODE: - ROLL LEFT AND RIGHT: ROLL LEFT AND RIGHT - STEP 1: Does the patient complete the activity by him/herself with no assistance (physical, verbal/nonverbal cueing, setup/clean-up)? No. ROLL LEFT AND RIGHT - STEP 2: Does the patient need only setup/clean-up assistance from one helper? No. ROLL LEFT AND RIGHT - STEP 3: Does the patient need only verbal/nonverbal cueing or touching/steadying/contact guard assistance fro m one helper? Yes. 1. [id number] ADMISSION PERFORMANCE: Supervision or touching assistance CODE: 04 SIT TO LYING: SIT TO LYING - STEP 1: Does the patient complete the activity by him/herself with no assistance (physical, verbal/nonverbal cueing, setup/clean-up)? No. SIT TO LYING - STEP 2: Does the patient need only setup/clean-up assistance from one helper? No. SIT TO LYING - STEP 3: Does the patient need only verbal/nonverbal cueing or touching/steadying/contact guard assistance fro m one helper? Yes. 1. [id number] ADMISSION PERFORMANCE: Supervision or touching assistance CODE: 04 LYING TO SITTING: LYING TO SITTING ON SIDE OF BED - STEP 1: Does the patient complete the activity by him/herself with no assistance (physical, verbal/nonverbal cueing, setup/clean-up)? No. LYING TO SITTING ON SIDE OF BED - STEP 2: Does the patient need only setup/clean-up assistance from one helper? Yes. 1. [id number] ADMISSION PERFORMANCE: Setup or clean-up assistance CODE: 05 SIT TO STAND: SIT TO STAND - STEP 1: Does the patient complete the activity by him/herself with no assistance (physical, verbal/nonverbal cueing, setup/clean-up)? No. SIT TO STAND - STEP 2: Does the patient need only setup/clean-up assistance from one helper? Yes. 1. [id number] ADMISSION PERFORMANCE: Setup or clean-up assistance CODE: 05 TRANSFERS: BED, CHAIR: CHAIR/[id number] TRANSFER - STEP 1: Does the patient complete the activity by him/herself with no assistance (physical, verbal/nonverbal cueing, setup/clean-up)? No. CHAIR/[id number] TRANSFER - STEP 2: Does the patient need only setup/clean-up assistance from one helper? No. CHAIR/YSP-FO-[id number] TRANSFER - STEP 3: Does the patient need only verbal/nonverbal cueing or touching/steadying/contact guard assistance fro m one helper? Yes. 1. [id number] ADMISSION PERFORMANCE: Supervision or touching assistance CODE: 04 TRANSFER TOILET: TOILET TRANSFER - STEP 1: Does the patient complete the activity by him/herself with no assistance (physical, verbal/nonverbal cueing, setup/clean-up)? No. TOILET TRANSFER - STEP 2: Does the patient need only setup/clean-up assistance from one helper? No. TOILET TRANSFER - STEP 3: Does the patient need only verbal/nonverbal cueing or touching/steadying/contact guard assistance fro m one helper? Yes. 1. [id number] ADMISSION PERFORMANCE: Supervision or touching assistance CODE: 04 TRANSFERS: CAR: Not assessed/no information CODE: - WALK 10 FEET: Not assessed/no information CODE: - 1 STEP (CURB): Not assessed/no information CODE: - PICKING UP OBJECT: Not assessed/no information CODE: - DOES THE PATIENT USE A WHEELCHAIR/SCOOTER? CODE: EXPR WHEEL 50 FEET WITH TWO TURNS: Not assessed/no information CODE: - INDICATE THE TYPE OF WHEELCHAIR/SCOOTER USED: CODE: EXPR WHEEL 150 FEET: Not assessed/no information CODE: - INDICATE THE TYPE OF WHEELCHAIR/SCOOTER USED: CODE: EXPR BLADDER AND BOWEL: H350. BLADDER CONTINENCE (3-DAY ASSESSMENT PERIOD): Always continent (no documented incontinence) CODE: 0 H400. BOWEL CONTINENCE (3-DAY ASSESSMENT PERIOD): Always continent CODE: 0 SIGNATURE PANEL: The following modified sections: 1. [id number] Admission Performance, 1. [id number] Admission Performance, 1. [id number] Admission Performance, 1. [id number] Admission Performance, 1. [id number] Admission Performance, 1. [id number] Admission Performance, 1. [id number] Admission Performance, 1. [id number] Admission Performance , 1. [id number] Admission Performance, 1. [id number] Admission Performance, Code, H350. Bladder Continence (3-day assessment period), H400. Bowel Continence (3-day assessment period) were [electronically] sig trista by Mario Castellanos on WedOct 09 2019 17:58:12 T-0600 (Central Standard Time)
[2019-10-09] MEDS: TRAZODONE 150 MG TAB PO SCH (20:26)
[2019-10-09] MEDS: ATORVASTATIN 10 MG TAB PO SCH (20:26)
[2019-10-09] MEDS: FENOFIBRATE MICRONIZED 67 MG PO SCH (20:27)
[2019-10-09] MEDS: BACLOFEN 10 MG TAB PO SCH (20:27)
[2019-10-09] MEDS: TRAMADOL HCL 50 MG TAB PO PRN (20:32)
--- NOTE | 2019-10-09 23:43 | PN ---
Subjective: Patient is feeling a lot better. Denies chest pain. Denies vomiting. Has muscle spasm s in the leg and is on Neurontin already. I will be trying different medications for this. Objective: Vital Signs: Her blood pressure is stable. Chest: Clear. Heart: Regular. Abdomen: No guarding, no rebound, no rigidity. Assessment And Plan: 1.Ankle fracture, getting physical therapy. 2.Constipation, improving slowly. 3.Side effects of medications. I will have to discontinue her [place], which will be making her worse . For her constipation, we will just give her tramadol for pain and Dr. Rosales started Dulcolax. I am stopping because we do not want the problems she is already having worsened with use of aggressi ve constipation medications. MARKUS/BETY Voice ID: [id number] Report ID: [id number]
[2019-10-10] MEDS: LINZESS 72 MCG PO SCH (06:54)
[2019-10-10] MEDS: LEVOTHYROXINE SOD 0.075 MG TAB PO SCH (06:54)
[2019-10-10] MEDS: PROMOD 30 ML DOSE PO SCH ×2 (08:00→19:52)
[2019-10-10] MEDS: POLYETHYL GLY 3350 17 GM/DOSE PO SCH (08:00)
[2019-10-10] MEDS: lisinopriL 10 MG TAB PO SCH (08:00)
[2019-10-10] MEDS: MAGNESIUM HYDROXIDE 8% 30 ML PO SCH ×2 (08:00→19:48)
[2019-10-10] MEDS: NICOTINE 14 MG/PAT TD SCH (08:03)
[2019-10-10] MEDS: FE SULF/FA/VIT B COMP & C TAB PO SCH (08:04)
[2019-10-10] MEDS: MULTIVITAMIN TAB PO SCH (08:04)
[2019-10-10] MEDS: VENLAFAXINE HCL XR 75 MG CAP PO SCH (08:04)
[2019-10-10] MEDS: FERROUS SULFATE 325 MG TAB PO SCH (08:04)
[2019-10-10] MEDS: MAGNESIUM OXIDE 400 MG TAB PO SCH ×2 (08:04→19:50)
[2019-10-10] MEDS: GABAPENTIN 300 MG CAP PO SCH ×2 (08:04→19:51)
[2019-10-10] MEDS: TRAMADOL HCL 50 MG TAB PO PRN ×2 (08:05→19:49)
[2019-10-10] MEDS: APIXABAN 2.5 MG TABLET PO SCH ×2 (08:05→19:51)
[2019-10-10] MEDS: FISH OIL 1200 MG PO SCH (08:07)
--- NOTE | 2019-10-10 10:40 | FAST ---
SHIFT START DATE/TIME: 10/10/2019 07:00 (TUMBLE TAILSTOCK TURRET LATHE OPERATOR) SHIFT END DATE/TIME: 10/10/2019 19:00 (TUMBLE TAILSTOCK TURRET LATHE OPERATOR) NAME DIMITRY KAPLAN DATE OF : 1945 DATE OF ADMISSION: 10/05/2019 13:55 (TUMBLE TAILSTOCK TURRET LATHE OPERATOR) PHONE: AGE: 74 SSN# [id number] GENDER: Female ENCOUNTER PHYSICIAN: Dr. Magdi Rosales M.D. ADMISSION DIAGNOSIS: - Debility 16 - Debility (16) Left Open Trimalleolar Ankle Fracture. EATING: EATING - STEP 1: Does the patient complete the activity by him/herself with no assistance (physical, verbal/nonverbal cueing, setup/clean-up)? No. EATING - STEP 2: Does the patient need only setup/clean-up assistance from one helper? No. EATING - STEP 3: Does the patient need only verbal/nonverbal cueing or touching/steadying/contact guard assistance fro m one helper? Yes. 1. [id number] ADMISSION PERFORMANCE: Supervision or touching assistance CODE: 04 ORAL HYGIENE: ORAL HYGIENE - STEP 1: Does the patient complete the activity by him/herself with no assistance (physical, verbal/nonverbal cueing, setup/clean-up)? No. ORAL HYGIENE - STEP 2: Does the patient need only setup/clean-up assistance from one helper? No. ORAL HYGIENE - STEP 3: Does the patient need only verbal/nonverbal cueing or touching/steadying/contact guard assistance fro m one helper? Yes. 1. [id number] ADMISSION PERFORMANCE: Supervision or touching assistance CODE: 04 TOILETING HYGIENE: TOILETING HYGIENE - STEP 1: Does the patient complete the activity by him/herself with no assistance (physical, verbal/nonverbal cueing, setup/clean-up)? No. TOILETING HYGIENE - STEP 2: Does the patient need only setup/clean-up assistance from one helper? No. TOILETING HYGIENE - STEP 3: Does the patient need only verbal/nonverbal cueing or touching/steadying/contact guard assistance fro m one helper? Yes. 1. [id number] ADMISSION PERFORMANCE: Supervision or touching assistance CODE: 04 BATHING: Not assessed/no information CODE: - DRESSING - UPPER BODY: Not assessed/no information CODE: - DRESSING - LOWER BODY: Not assessed/no information CODE: - PUTTING ON/TAKING OFF FOOTWEAR: Not assessed/no information CODE: - ROLL LEFT AND RIGHT: Not assessed/no information CODE: - SIT TO LYING: Not assessed/no information CODE: - LYING TO SITTING: Not assessed/no information CODE: - SIT TO STAND: SIT TO STAND - STEP 1: Does the patient complete the activity by him/herself with no assistance (physical, verbal/nonverbal cueing, setup/clean-up)? No. SIT TO STAND - STEP 2: Does the patient need only setup/clean-up assistance from one helper? No. SIT TO STAND - STEP 3: Does the patient need only verbal/nonverbal cueing or touching/steadying/contact guard assistance fro m one helper? Yes. 1. [id number] ADMISSION PERFORMANCE: Supervision or touching assistance CODE: 04 TRANSFERS: BED, CHAIR: CHAIR/[id number] TRANSFER - STEP 1: Does the patient complete the activity by him/herself with no assistance (physical, verbal/nonverbal cueing, setup/clean-up)? No. CHAIR/[id number]-NY-VTYES TRANSFER - STEP 2: Does the patient need only setup/clean-up assistance from one helper? No. CHAIR/MVY-GI-EKIMP TRANSFER - STEP 3: Does the patient need only verbal/nonverbal cueing or touching/steadying/contact guard assistance fro m one helper? Yes. 1. [id number] ADMISSION PERFORMANCE: Supervision or touching assistance CODE: 04 TRANSFER TOILET: TOILET TRANSFER - STEP 1: Does the patient complete the activity by him/herself with no assistance (physical, verbal/nonverbal cueing, setup/clean-up)? No. TOILET TRANSFER - STEP 2: Does the patient need only setup/clean-up assistance from one helper? No. TOILET TRANSFER - STEP 3: Does the patient need only verbal/nonverbal cueing or touching/steadying/contact guard assistance fro m one helper? Yes. 1. [id number] ADMISSION PERFORMANCE: Supervision or touching assistance CODE: 04 TRANSFERS: CAR: Not assessed/no information CODE: - WALK 10 FEET: Not assessed/no information CODE: - 1 STEP (CURB): Not assessed/no information CODE: - PICKING UP OBJECT: Not assessed/no information CODE: - DOES THE PATIENT USE A WHEELCHAIR/SCOOTER? CODE: EXPR WHEEL 50 FEET WITH TWO TURNS: Not assessed/no information CODE: - INDICATE THE TYPE OF WHEELCHAIR/SCOOTER USED: CODE: EXPR WHEEL 150 FEET: Not assessed/no information CODE: - INDICATE THE TYPE OF WHEELCHAIR/SCOOTER USED: CODE: EXPR BLADDER AND BOWEL: H350. BLADDER CONTINENCE (3-DAY ASSESSMENT PERIOD): Always continent (no documented incontinence) CODE: 0 H400. BOWEL CONTINENCE (3-DAY ASSESSMENT PERIOD): Always continent CODE: 0 SIGNATURE PANEL: The following modified sections: 1. [id number] Admission Performance, 1. [id number] Admission Performance, 1. [id number] Admission Performance, 1. [id number] Admission Performance, 1. [id number] Admission Performance, 1. [id number] Admission Performance, 1. [id number] Admission Performance, 1. GU6955A Admission Performance , 1. [id number] Admission Performance, 1. [id number] Admission Performance, Code, H350. Bladder Continence (3-day assessment period), H400. Bowel Continence (3-day assessment period) were [electronically] sig trista by Mario Castellanos on WedOct 10 2019 10:40:06 GMT-0600 (Central Standard Time)
--- NOTE | 2019-10-10 15:37 | FAST ---
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 Magdi Rosales M.D. ADMISSION DIAGNOSIS: - Debility 16 - Debility (16) Left Open Trimalleolar Ankle Fracture. ROLL LEFT AND RIGHT: ROLL LEFT AND RIGHT - STEP 1: Does the patient complete the activity by him/herself with no assistance (physical, verbal/nonverbal cueing, setup/clean-up)? No. ROLL LEFT AND RIGHT - STEP 2: Does the patient need only setup/clean-up assistance from one helper? Yes. 1. [id number] ADMISSION PERFORMANCE: Setup or clean-up assistance CODE: 05 SIT TO LYING: SIT TO LYING - STEP 1: Does the patient complete the activity by him/herself with no assistance (physical, verbal/nonverbal cueing, setup/clean-up)? No. SIT TO LYING - STEP 2: Does the patient need only setup/clean-up assistance from one helper? Yes. 1. [id number] ADMISSION PERFORMANCE: Setup or clean-up assistance CODE: 05 LYING TO SITTING: LYING TO SITTING ON SIDE OF BED - STEP 1: Does the patient complete the activity by him/herself with no assistance (physical, verbal/nonverbal cueing, setup/clean-up)? No. LYING TO SITTING ON SIDE OF BED - STEP 2: Does the patient need only setup/clean-up assistance from one helper? Yes. 1. [id number] ADMISSION PERFORMANCE: Setup or clean-up assistance CODE: 05 SIT TO STAND: SIT TO STAND - STEP 1: Does the patient complete the activity by him/herself with no assistance (physical, verbal/nonverbal cueing, setup/clean-up)? No. SIT TO STAND - STEP 2: Does the patient need only setup/clean-up assistance from one helper? Yes. 1. [id number] ADMISSION PERFORMANCE: Setup or clean-up assistance CODE: 05 TRANSFERS: BED, CHAIR: CHAIR/ULB-NW-UWEFR TRANSFER - STEP 1: Does the patient complete the activity by him/herself with no assistance (physical, verbal/nonverbal cueing, setup/clean-up)? No. CHAIR/[id number] TRANSFER - STEP 2: Does the patient need only setup/clean-up assistance from one helper? Yes. 1. [id number] ADMISSION PERFORMANCE: Setup or clean-up assistance CODE: 05 TRANSFER TOILET: TOILET TRANSFER - STEP 1: Does the patient complete the activity by him/herself with no assistance (physical, verbal/nonverbal cueing, setup/clean-up)? No. TOILET TRANSFER - STEP 2: Does the patient need only setup/clean-up assistance from one helper? Yes. 1. [id number] ADMISSION PERFORMANCE: Setup or clean-up assistance CODE: 05 TRANSFERS: CAR: Not attempted due to environmental limitations (e.g., lack of equipment, weather constraints) CODE: 10 WALK 10 FEET: WALK 10 FEET - STEP 1: Does the patient complete the activity by him/herself with no assistance (physical, verbal/nonverbal cueing, setup/clean-up)? No. WALK 10 FEET - STEP 2: Does the patient need only setup/clean-up assistance from one helper? Yes. 1. [id number] ADMISSION PERFORMANCE: Setup or clean-up assistance CODE: 05 WALK 50 FEET: WALK 50 FEET - STEP 1: Does the patient complete the activity by him/herself with no assistance (physical, verbal/nonverbal cueing, setup/clean-up)? No. WALK 50 FEET - STEP 2: Does the patient need only setup/clean-up assistance from one helper? Yes. 1. [id number] ADMISSION PERFORMANCE: Setup or clean-up assistance CODE: 05 WALK 150 FEET: Not attempted due to medical condition or safety concerns CODE: 88 WALK 10 FEET UNEVEN: Not attempted due to medical condition or safety concerns CODE: 88 1 STEP (CURB): Not attempted due to medical condition or safety concerns CODE: 88 PICKING UP OBJECT: Not attempted due to medical condition or safety concerns CODE: 88 DOES THE PATIENT USE A WHEELCHAIR/SCOOTER? Q1. DOES THE PATIENT USE A WHEELCHAIR/SCOOTER?: Yes CODE: 1 WHEEL 50 FEET WITH TWO TURNS: WHEEL 50 FEET WITH TWO TURNS - STEP 1: Does the patient complete the activity by him/herself with no assistance (physical, verbal/nonverbal cueing, setup/clean-up)? No. WHEEL 50 FEET WITH TWO TURNS - STEP 2: Does the patient need only setup/clean-up assistance from one helper? Yes. 1. [id number] ADMISSION PERFORMANCE: Setup or clean-up assistance CODE: 05 INDICATE THE TYPE OF WHEELCHAIR/SCOOTER USED: RR1. INDICATE THE TYPE OF WHEELCHAIR/SCOOTER USED.: Manual CODE: 1 WHEEL 150 FEET: WHEEL 150 FEET - STEP 1: Does the patient complete the activity by him/herself with no assistance (physical, verbal/nonverbal cueing, setup/clean-up)? No. WHEEL 150 FEET - STEP 2: Does the patient need only setup/clean-up assistance from one helper? Yes. 1. [id number] ADMISSION PERFORMANCE: Setup or clean-up assistance CODE: 05 INDICATE THE TYPE OF WHEELCHAIR/SCOOTER USED: SS1. INDICATE THE TYPE OF WHEELCHAIR/SCOOTER USED.: Manual CODE: 1 BLADDER AND BOWEL: CODE: EXPR CODE: EXPR SIGNATURE PANEL: The following modified sections: 1. [id number] Admission Performance, 1. [id number] Admission Performance, 1. [id number] Admission Performance, 1. DS1051O Admission Performance, 1. SR2210L Admission Performance, 1. VK0146Q Admission Performance, 1. GK6850X Admission Performance, 1. [id number] Admission Performance , Q1. Does the patient use a wheelchair/scooter?, 1. PC8625T Admission Performance, RR1. Indicate the type of wheelchair/scooter used., 1. [id number] Admission Performance, Code, SS1. Indicate the type of wheelchair/scooter used. were [electronically] signed by Quincy Chavez PTA on WedOct 10 2019 15:36:36 GMT-0600 (Central Standard Time)
[2019-10-10] MEDS: ATORVASTATIN 10 MG TAB PO SCH (19:50)
[2019-10-10] MEDS: FENOFIBRATE MICRONIZED 67 MG PO SCH (19:51)
[2019-10-10] MEDS: TRAZODONE 150 MG TAB PO SCH (19:52)
[2019-10-10] MEDS: BACLOFEN 10 MG TAB PO SCH (19:52)
--- NOTE | 2019-10-10 23:02 | PN ---
Subjective: She is feeling great. Denies chest pain, nausea, vomiting. She is starting to have bow el movement. Constipation is improving. Her pain is improving in the ankle. She wants to go home. Objective: Vital Signs: Blood pressure 110/70, pulse is 76. Chest: Clear. Heart: Regular. Abdomen: No guarding, no rebound, no rigidity. Assessment/plan: 1.Ankle fracture. Physical therapy continued. She wants to go home for Thanksgiving. 2.Constipation, improved. I have advised the nurses not to give my patient [place] in the rehab or an ywhere else. Avoid narcotics as they can because it will create more problems like constipation. Se cond thing they need to avoid is Dulcolax, which is a stimulant. Constipation medication; rather kayla e MiraLAX and milk of magnesia. MARKUS/BETY Voice ID: [id number] Report ID: [id number]
[2019-10-11 06:21] LABS: Absolute Lymphocytes (CBC) 1.7 K/uL (0.7-4.9); Basophils % 0.6 % (0-1.3); Hematocrit 28.5 % (36.0-45.0); Lymphocytes % 28.4 % (15.3-44.8); MPV 6.8 fL (7.6-11.3); RBC Red Blood Cell Count 2.97 M/uL (3.86-4.86)
[2019-10-11 06:40] LABS: Albumin 2.8 g/dL (3.4-5.0); Magnesium 2.2 mg/dL (1.8-2.4); Potassium 4.1 mmol/L (3.5-5.1); Prealbumin 16.1 mg/dL (20-40)
[2019-10-11] MEDS: LINZESS 72 MCG PO SCH (06:48)
[2019-10-11] MEDS: LEVOTHYROXINE SOD 0.075 MG TAB PO SCH (06:49)
[2019-10-11] MEDS: PROMOD 30 ML DOSE PO SCH ×2 (08:00→20:00)
[2019-10-11] MEDS: FERROUS SULFATE 325 MG TAB PO SCH (08:00)
[2019-10-11] MEDS: MAGNESIUM HYDROXIDE 8% 30 ML PO SCH ×3 (08:00→20:00)
[2019-10-11] MEDS: FISH OIL 1200 MG PO SCH (08:10)
[2019-10-11] MEDS: POLYETHYL GLY 3350 17 GM/DOSE PO SCH (08:11)
[2019-10-11] MEDS: NICOTINE 14 MG/PAT TD SCH (08:11)
[2019-10-11] MEDS: MULTIVITAMIN TAB PO SCH (08:14)
[2019-10-11] MEDS: GABAPENTIN 300 MG CAP PO SCH ×2 (08:14→20:00)
[2019-10-11] MEDS: FE SULF/FA/VIT B COMP & C TAB PO SCH (08:14)
[2019-10-11] MEDS: APIXABAN 2.5 MG TABLET PO SCH ×2 (08:14→19:59)
[2019-10-11] MEDS: VENLAFAXINE HCL XR 75 MG CAP PO SCH (08:14)
[2019-10-11] MEDS: MAGNESIUM OXIDE 400 MG TAB PO SCH ×2 (08:14→19:59)
[2019-10-11] MEDS: lisinopriL 10 MG TAB PO SCH (08:15)
[2019-10-11] MEDS: TRAMADOL HCL 50 MG TAB PO PRN (08:16)
--- NOTE | 2019-10-11 09:50 | P.RH.PN ---
Estimated Length of Stay: 13 Expected Discharge Date: 10/17/19 Discharge Disposition Plan: Home Family Support: Yes Vital Signs: Last Vital Signs Temp 97.2 F 10/11/19 07:02 Pulse 75 10/11/19 08:15 Resp 16 10/11/19 08:16 BP 131/61 10/11/19 08:15 Pulse Ox 93 10/11/19 08:16 Laboratory: Laboratory Last Values WBC 6.0 K/uL (4.3-10.9) D 10/11/19 05:57 RBC 2.97 M/uL (3.86-4.86) L 10/11/19 05:57 Hgb 9.8 g/dL (12.0-15.0) L 10/11/19 05:57 Hct 28.5 % (36.0-45.0) L 10/11/19 05:57 MCV 96.0 fL (80-100) 10/11/19 05:57 MCH 33.2 pg (27.0-35.0) 10/11/19 05:57 MCHC 34.5 g/dL (32.0-36.0) 10/11/19 05:57 RDW 12.0 % (12.1-15.2) L 10/11/19 05:57 Plt Count 299 K/uL (152-406) D 10/11/19 05:57 MPV 6.8 fL (7.6-11.3) L D 10/11/19 05:57 Neutrophils % 57.2 % (41.7-73.7) 10/11/19 05:57 Lymphocytes % 28.4 % (15.3-44.8) 10/11/19 05:57 Monocytes % 11.9 % (3.3-12.3) 10/11/19 05:57 Eosinophils % 1.9 % (0-4.4) 10/11/19 05:57 Basophils % 0.6 % (0-1.3) 10/11/19 05:57 Absolute Neutrophils 3.4 K/uL (1.8-8.0) 10/11/19 05:57 Absolute Lymphocytes 1.7 K/uL (0.7-4.9) 10/11/19 05:57 Absolute Monocytes 0.7 K/uL (0.1-1.3) 10/11/19 05:57 Absolute Eosinophils 0.1 K/uL (0-0.5) 10/11/19 05:57 Absolute Basophils 0.0 K/uL (0-0.5) 10/11/19 05:57 Sodium 140 mmol/L (136-145) 10/11/19 05:57 Potassium 4.1 mmol/L (3.5-5.1) 10/11/19 05:57 Chloride 106 mmol/L (98-107) 10/11/19 05:57 Carbon Dioxide 30 mmol/L (21-32) 10/11/19 05:57 BUN 12 mg/dL (7-18) 10/11/19 05:57 Creatinine 0.68 mg/dL (0.55-1.3) 10/11/19 05:57 Estimated GFR 85 mL/min (=/>90) L 10/11/19 05:57 Glucose 95 mg/dL (74-106) 10/11/19 05:57 Calcium 9.4 mg/dL (8.5-10.1) 10/11/19 05:57 Magnesium 2.2 mg/dL (1.8-2.4) 10/11/19 05:57 Albumin 2.8 g/dL (3.4-5.0) L 10/11/19 05:57 Prealbumin 16.1 mg/dL (20-40) L 10/11/19 05:57 Urine Color Yellow 10/06/19 07:40 Urine Appearance Clear 10/06/19 07:40 Urine pH 7.5 (5.0-7.0) H 10/06/19 07:40 Ur Specific [place] <=1.005 (1.005-1.030) 10/06/19 07:40 Urine Ketones Negative (NEG) 10/06/19 07:40 Urine Blood Negative (NEG) 10/06/19 07:40 Urine Nitrite Negative (NEG) 10/06/19 07:40 Urine Bilirubin Negative (NEG) 10/06/19 07:40 Urine Urobilinogen 1.0 mg/dL (0.2-1.0) 10/06/19 07:40 Ur Leukocyte Esterase Negative (NEG) 10/06/19 07:40 Urine RBC <5 /HPF (NONE SEEN) 10/06/19 07:40 Urine WBC <5 /HPF (<5) 10/06/19 07:40 Ur Squamous Epith Cells <5 /HPF (NONE SEEN) 10/06/19 07:40 Amorphous Sediment 1+ /HPF (NONE SEEN) 10/06/19 07:40 Urine Bacteria 20-50 /HPF (<20) H 10/06/19 07:40 Urine Mucus 1+ /HPF (NONE SEEN) 10/06/19 07:40 Urine Culture Reflexed Reflexed 10/06/19 07:40 Urine Glucose Negative (NEG) 10/06/19 07:40 Urine Total Protein Negative (NEG) 10/06/19 07:40 Weight: 206 lb 1.6 oz Wound Present: No Closed Surgical Incision Present: Yes Negative Pressure Wound Therapy Present: No Physician Update: Labs reviewed and are stable. She is standby assistance with ADLs. She adhears to non-weight bearing status well. She will be discharged home next Wednesday. Medical Issues: Patient is always continent with bladder and bowel Pain Issues: Tramadol 50mg Q6H PRN PO Functional Improvement: Patient has met all short-term goals at this time, w/ the exception of a platform step. Patient's balance and technique have continued to improve w/ therapy. Summary: Patient's care plan and shelter goals have been reviewed and revised as necessary. Please see the Rehabilitation Signature page for all necessary signatures.
--- NOTE | 2019-10-11 12:46 | P.PN ---
Subjective Date of Service: 10/10/19 Chief Complaint: s/p ORIF left ankle fracture Subjective: Improving, Working w/ PT pain controlled; mobilizing well wtih PT; occasional burning pain over medial ankle Physical Examination - Vital Signs Temperature: 97.2 F Blood Pressure: 131/61 Pulse: 75 Respirations: 16 Pulse Ox (%): 93 - Physical Exam General: Alert, In no apparent distress Musculoskeletal: Other (LLE: incisions healing well without active drainage; no erythema or signs of infection; +EHL/FHL; NVI distally) - Studies Laboratory Data (last 24 hrs) 10/11/19 05:57: Sodium 140, Potassium 4.1, BUN 12, Creatinine 0.68, Glucose 95, Magnesium 2.2 10/11/19 05:57: WBC 6.0 D, Hgb 9.8 L, Hct 28.5 L, Plt Count 299 D Assessment And Plan - Plan Natalya is a 74 yo female s/p I&D and ORIF of her left open ankle fracture POD#6 -dressing changed without complication; no signs of infection at this time -continue NWB LLE and mobilize with PT -f/u in 1 week for suture removal, xrays and placement of short leg cast vs CAM boot
--- NOTE | 2019-10-11 15:44 | FAST ---
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 Magdi Rosales M.D. ADMISSION DIAGNOSIS: - Debility 16 - Debility (16) Left Open Trimalleolar Ankle Fracture. EATING: EATING - STEP 1: Does the patient complete the activity by him/herself with no assistance (physical, verbal/nonverbal cueing, setup/clean-up)? No. EATING - STEP 2: Does the patient need only setup/clean-up assistance from one helper? Yes. 1. [id number] ADMISSION PERFORMANCE: Setup or clean-up assistance CODE: 05 ORAL HYGIENE: ORAL HYGIENE - STEP 1: Does the patient complete the activity by him/herself with no assistance (physical, verbal/nonverbal cueing, setup/clean-up)? No. ORAL HYGIENE - STEP 2: Does the patient need only setup/clean-up assistance from one helper? No. ORAL HYGIENE - STEP 3: Does the patient need only verbal/nonverbal cueing or touching/steadying/contact guard assistance fro m one helper? Yes. 1. [id number] ADMISSION PERFORMANCE: Supervision or touching assistance CODE: 04 TOILETING HYGIENE: TOILETING HYGIENE - STEP 1: Does the patient complete the activity by him/herself with no assistance (physical, verbal/nonverbal cueing, setup/clean-up)? No. TOILETING HYGIENE - STEP 2: Does the patient need only setup/clean-up assistance from one helper? No. TOILETING HYGIENE - STEP 3: Does the patient need only verbal/nonverbal cueing or touching/steadying/contact guard assistance fro m one helper? Yes. 1. [id number] ADMISSION PERFORMANCE: Supervision or touching assistance CODE: 04 BATHING: Not assessed/no information CODE: - DRESSING - UPPER BODY: DRESSING - UPPER BODY - STEP 1: Does the patient complete the activity by him/herself with no assistance (physical, verbal/nonverbal cueing, setup/clean-up)? Yes. 1. [id number] ADMISSION PERFORMANCE: Independent CODE: 06 DRESSING - LOWER BODY: DRESSING - LOWER BODY - STEP 1: Does the patient complete the activity by him/herself with no assistance (physical, verbal/nonverbal cueing, setup/clean-up)? No. DRESSING - LOWER BODY - STEP 2: Does the patient need only setup/clean-up assistance from one helper? No. DRESSING - LOWER BODY - STEP 3: Does the patient need only verbal/nonverbal cueing or touching/steadying/contact guard assistance fro m one helper? Yes. 1. [id number] ADMISSION PERFORMANCE: Supervision or touching assistance CODE: 04 PUTTING ON/TAKING OFF FOOTWEAR: FOOTWEAR - STEP 1: Does the patient complete the activity by him/herself with no assistance (physical, verbal/nonverbal cueing, setup/clean-up)? Yes. 1. [id number] ADMISSION PERFORMANCE: Independent CODE: 06 ROLL LEFT AND RIGHT: ROLL LEFT AND RIGHT - STEP 1: Does the patient complete the activity by him/herself with no assistance (physical, verbal/nonverbal cueing, setup/clean-up)? No. ROLL LEFT AND RIGHT - STEP 2: Does the patient need only setup/clean-up assistance from one helper? Yes. 1. [id number] ADMISSION PERFORMANCE: Setup or clean-up assistance CODE: 05 SIT TO LYING: SIT TO LYING - STEP 1: Does the patient complete the activity by him/herself with no assistance (physical, verbal/nonverbal cueing, setup/clean-up)? No. SIT TO LYING - STEP 2: Does the patient need only setup/clean-up assistance from one helper? Yes. 1. [id number] ADMISSION PERFORMANCE: Setup or clean-up assistance CODE: 05 LYING TO SITTING: LYING TO SITTING ON SIDE OF BED - STEP 1: Does the patient complete the activity by him/herself with no assistance (physical, verbal/nonverbal cueing, setup/clean-up)? No. LYING TO SITTING ON SIDE OF BED - STEP 2: Does the patient need only setup/clean-up assistance from one helper? Yes. 1. [id number] ADMISSION PERFORMANCE: Setup or clean-up assistance CODE: 05 SIT TO STAND: SIT TO STAND - STEP 1: Does the patient complete the activity by him/herself with no assistance (physical, verbal/nonverbal cueing, setup/clean-up)? No. SIT TO STAND - STEP 2: Does the patient need only setup/clean-up assistance from one helper? Yes. 1. [id number] ADMISSION PERFORMANCE: Setup or clean-up assistance CODE: 05 TRANSFERS: BED, CHAIR: CHAIR/OKC-[id number] TRANSFER - STEP 1: Does the patient complete the activity by him/herself with no assistance (physical, verbal/nonverbal cueing, setup/clean-up)? No. CHAIR/KTO-XP-[id number] TRANSFER - STEP 2: Does the patient need only setup/clean-up assistance from one helper? Yes. 1. [id number] ADMISSION PERFORMANCE: Setup or clean-up assistance CODE: 05 TRANSFER TOILET: TOILET TRANSFER - STEP 1: Does the patient complete the activity by him/herself with no assistance (physical, verbal/nonverbal cueing, setup/clean-up)? No. TOILET TRANSFER - STEP 2: Does the patient need only setup/clean-up assistance from one helper? Yes. 1. [id number] ADMISSION PERFORMANCE: Setup or clean-up assistance CODE: 05 TRANSFERS: CAR: Not assessed/no information CODE: - WALK 10 FEET: Not assessed/no information CODE: - 1 STEP (CURB): Not assessed/no information CODE: - PICKING UP OBJECT: Not assessed/no information CODE: - DOES THE PATIENT USE A WHEELCHAIR/SCOOTER? Q1. DOES THE PATIENT USE A WHEELCHAIR/SCOOTER?: Yes CODE: 1 WHEEL 50 FEET WITH TWO TURNS: WHEEL 50 FEET WITH TWO TURNS - STEP 1: Does the patient complete the activity by him/herself with no assistance (physical, verbal/nonverbal cueing, setup/clean-up)? No. WHEEL 50 FEET WITH TWO TURNS - STEP 2: Does the patient need only setup/clean-up assistance from one helper? Yes. 1. [id number] ADMISSION PERFORMANCE: Setup or clean-up assistance CODE: 05 INDICATE THE TYPE OF WHEELCHAIR/SCOOTER USED: RR1. INDICATE THE TYPE OF WHEELCHAIR/SCOOTER USED.: Manual CODE: 1 WHEEL 150 FEET: WHEEL 150 FEET - STEP 1: Does the patient complete the activity by him/herself with no assistance (physical, verbal/nonverbal cueing, setup/clean-up)? No. WHEEL 150 FEET - STEP 2: Does the patient need only setup/clean-up assistance from one helper? Yes. 1. [id number] ADMISSION PERFORMANCE: Setup or clean-up assistance CODE: 05 INDICATE THE TYPE OF WHEELCHAIR/SCOOTER USED: SS1. INDICATE THE TYPE OF WHEELCHAIR/SCOOTER USED.: Manual CODE: 1 BLADDER AND BOWEL: H350. BLADDER CONTINENCE (3-DAY ASSESSMENT PERIOD): Always continent (no documented incontinence) CODE: 0 H400. BOWEL CONTINENCE (3-DAY ASSESSMENT PERIOD): Always continent CODE: 0 SIGNATURE PANEL: The following modified sections: 1. HA2228E Admission Performance, 1. JI0115P Admission Performance, 1. KK1431G Admission Performance, 1. RL7488m Admission Performance, 1. YW4552o Admission Performance, 1. KA7654k Admission Performance, 1. RM1560d Admission Performance, 1. WA5772f Admission Performance , 1. NK9409D Admission Performance, 1. VH8018F Admission Performance, 1. HY9367Y Admission Performanc e, 1. QH2773H Admission Performance, 1. VO5090T Admission Performance, 1. CF0097F Admission Performan ce, Q1. Does the patient use a wheelchair/scooter?, 1. KF8412W Admission Performance, RR1. Indicate t he type of wheelchair/scooter used., 1. ND1756I Admission Performance, Code, SS1. Indicate the type o f wheelchair/scooter used., H350. Bladder Continence (3-day assessment period), H400. Bowel Continenc e (3-day assessment period) were [electronically] signed by Janeen Bae C.N.A. on WedOct 11 2019 1 5:42:47 GMT-0600 (Central Standard Time)
--- NOTE | 2019-10-11 15:46 | FAST ---
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 Magdi Rosales M.D. ADMISSION DIAGNOSIS: - Debility 16 - Debility (16) Left Open Trimalleolar Ankle Fracture. EATING: Not assessed/no information CODE: - ORAL HYGIENE: ORAL HYGIENE - STEP 1: Does the patient complete the activity by him/herself with no assistance (physical, verbal/nonverbal cueing, setup/clean-up)? Yes. 1. [id number] ADMISSION PERFORMANCE: Independent CODE: 06 TOILETING HYGIENE: Not assessed/no information CODE: - BATHING: SHOWER/BATHE SELF - STEP 1: Does the patient complete the activity by him/herself with no assistance (physical, verbal/nonverbal cueing, setup/clean-up)? No. SHOWER/BATHE SELF - STEP 2: Does the patient need only setup/clean-up assistance from one helper? No. SHOWER/BATHE SELF - STEP 3: Does the patient need only verbal/nonverbal cueing or touching/steadying/contact guard assistance fro m one helper? Yes. 1. [id number] ADMISSION PERFORMANCE: Supervision or touching assistance CODE: 04 DRESSING - UPPER BODY: DRESSING - UPPER BODY - STEP 1: Does the patient complete the activity by him/herself with no assistance (physical, verbal/nonverbal cueing, setup/clean-up)? Yes. 1. [id number] ADMISSION PERFORMANCE: Independent CODE: 06 DRESSING - LOWER BODY: DRESSING - LOWER BODY - STEP 1: Does the patient complete the activity by him/herself with no assistance (physical, verbal/nonverbal cueing, setup/clean-up)? No. DRESSING - LOWER BODY - STEP 2: Does the patient need only setup/clean-up assistance from one helper? No. DRESSING - LOWER BODY - STEP 3: Does the patient need only verbal/nonverbal cueing or touching/steadying/contact guard assistance fro m one helper? Yes. 1. [id number] ADMISSION PERFORMANCE: Supervision or touching assistance CODE: 04 PUTTING ON/TAKING OFF FOOTWEAR: FOOTWEAR - STEP 1: Does the patient complete the activity by him/herself with no assistance (physical, verbal/nonverbal cueing, setup/clean-up)? Yes. 1. ED2520N ADMISSION PERFORMANCE: Independent CODE: 06 DOES THE PATIENT USE A WHEELCHAIR/SCOOTER? CODE: EXPR INDICATE THE TYPE OF WHEELCHAIR/SCOOTER USED: CODE: EXPR INDICATE THE TYPE OF WHEELCHAIR/SCOOTER USED: CODE: EXPR BLADDER AND BOWEL: CODE: EXPR CODE: EXPR SIGNATURE PANEL: The following modified sections: 1. BS9840Y Admission Performance, 1. OR6484x Admission Performance, 1. PX3967s Admission Performance, 1. BF3105s Admission Performance, 1. YN2644k Admission Performance were [electronically] signed by KELSEY Springer on WedOct 11 2019 15:45:35 GMT-0600 (Central Standard Time)
[2019-10-11] MEDS: TRAZODONE 150 MG TAB PO SCH (20:00)
[2019-10-11] MEDS: FENOFIBRATE MICRONIZED 67 MG PO SCH (20:01)
[2019-10-11] MEDS: BACLOFEN 10 MG TAB PO SCH (20:04)
[2019-10-11] MEDS: ATORVASTATIN 10 MG TAB PO SCH (20:05)
--- NOTE | 2019-10-12 01:21 | PN ---
Subjective: Ms. Choudhary is doing lot better. She denies any chest pain, nausea, vomiting. She wan ts to go home for Thanksgiving. She is able to ambulate with minimal assistance. Objective: Vital Signs: Blood pressure 152/60. HEENT: No JVD. No carotid bruits. Chest: Clear. Heart: Regular. Abdomen: No guarding, no rebound, no rigidity. Neuro: Stable. Laboratory Data: Hemoglobin 9.8. Assessment And Plan: 1.Ankle fracture, could go home anytime if Dr. Rosales team decides to send her home. 2.Hypertension. We will watch this. I reduced the medication because of orthostatic hypotension. 3.Constipation. Discontinue medications which can constipate her. Among the medications list, I can see that there are certain things she is on. She can get all, which is iron tablets. I have advise d the nurse not to give her Simpson kind narcotics to make her more constipated, which is ongoing probl em for her. We can manage the pain with tramadol at this point and we do not have to give highly add ictive medications to everyone. So at this point, I will discontinue Simpson, iron tablets, multivitam in. She is eating well. She can manage without supplements. MARKUS/MODL Voice ID: [id number] Report ID: [id number]
[2019-10-12] MEDS: TRAMADOL HCL 50 MG TAB PO PRN ×3 (06:32→22:48)
[2019-10-12] MEDS: LEVOTHYROXINE SOD 0.075 MG TAB PO SCH (06:32)
[2019-10-12] MEDS: LINZESS 72 MCG PO SCH (06:33)
[2019-10-12] MEDS: POLYETHYL GLY 3350 17 GM/DOSE PO SCH (08:00)
[2019-10-12] MEDS: MAGNESIUM HYDROXIDE 8% 30 ML PO SCH ×2 (08:00→20:00)
[2019-10-12] MEDS: PROMOD 30 ML DOSE PO SCH ×2 (08:00→20:00)
[2019-10-12] MEDS: FISH OIL 1200 MG PO SCH (08:11)
[2019-10-12] MEDS: APIXABAN 2.5 MG TABLET PO SCH ×2 (08:11→20:27)
[2019-10-12] MEDS: MAGNESIUM OXIDE 400 MG TAB PO SCH ×2 (08:11→20:27)
[2019-10-12] MEDS: GABAPENTIN 300 MG CAP PO SCH ×2 (08:11→20:27)
[2019-10-12] MEDS: VENLAFAXINE HCL XR 75 MG CAP PO SCH (08:11)
[2019-10-12] MEDS: lisinopriL 10 MG TAB PO SCH (08:12)
[2019-10-12] MEDS: NICOTINE 14 MG/PAT TD SCH (08:13)
--- NOTE | 2019-10-12 14:01 | FAST ---
SHIFT START DATE/TIME: 10/12/2019 07:00 (PROCESS CONSULTANT) SHIFT END DATE/TIME: 10/12/2019 19:00 (PROCESS CONSULTANT) NAME DIMITRY KAPLAN DATE OF : 1945 DATE OF ADMISSION: 10/05/2019 13:55 (PROCESS CONSULTANT) PHONE: AGE: 74 SSN# [id number] GENDER: Female ENCOUNTER PHYSICIAN: Dr. Magdi Rosales M.D. ADMISSION DIAGNOSIS: - Debility 16 - Debility (16) Left Open Trimalleolar Ankle Fracture. EATING: EATING - STEP 1: Does the patient complete the activity by him/herself with no assistance (physical, verbal/nonverbal cueing, setup/clean-up)? No. EATING - STEP 2: Does the patient need only setup/clean-up assistance from one helper? Yes. 1. [id number] ADMISSION PERFORMANCE: Setup or clean-up assistance CODE: 05 ORAL HYGIENE: ORAL HYGIENE - STEP 1: Does the patient complete the activity by him/herself with no assistance (physical, verbal/nonverbal cueing, setup/clean-up)? No. ORAL HYGIENE - STEP 2: Does the patient need only setup/clean-up assistance from one helper? No. ORAL HYGIENE - STEP 3: Does the patient need only verbal/nonverbal cueing or touching/steadying/contact guard assistance fro m one helper? Yes. 1. [id number] ADMISSION PERFORMANCE: Supervision or touching assistance CODE: 04 TOILETING HYGIENE: TOILETING HYGIENE - STEP 1: Does the patient complete the activity by him/herself with no assistance (physical, verbal/nonverbal cueing, setup/clean-up)? No. TOILETING HYGIENE - STEP 2: Does the patient need only setup/clean-up assistance from one helper? No. TOILETING HYGIENE - STEP 3: Does the patient need only verbal/nonverbal cueing or touching/steadying/contact guard assistance fro m one helper? Yes. 1. [id number] ADMISSION PERFORMANCE: Supervision or touching assistance CODE: 04 BATHING: Not assessed/no information CODE: - DRESSING - UPPER BODY: DRESSING - UPPER BODY - STEP 1: Does the patient complete the activity by him/herself with no assistance (physical, verbal/nonverbal cueing, setup/clean-up)? No. DRESSING - UPPER BODY - STEP 2: Does the patient need only setup/clean-up assistance from one helper? No. DRESSING - UPPER BODY - STEP 3: Does the patient need only verbal/nonverbal cueing or touching/steadying/contact guard assistance fro m one helper? Yes. 1. [id number] ADMISSION PERFORMANCE: Supervision or touching assistance CODE: 04 DRESSING - LOWER BODY: DRESSING - LOWER BODY - STEP 1: Does the patient complete the activity by him/herself with no assistance (physical, verbal/nonverbal cueing, setup/clean-up)? No. DRESSING - LOWER BODY - STEP 2: Does the patient need only setup/clean-up assistance from one helper? No. DRESSING - LOWER BODY - STEP 3: Does the patient need only verbal/nonverbal cueing or touching/steadying/contact guard assistance fro m one helper? Yes. 1. [id number] ADMISSION PERFORMANCE: Supervision or touching assistance CODE: 04 PUTTING ON/TAKING OFF FOOTWEAR: FOOTWEAR - STEP 1: Does the patient complete the activity by him/herself with no assistance (physical, verbal/nonverbal cueing, setup/clean-up)? No. FOOTWEAR - STEP 2: Does the patient need only setup/clean-up assistance from one helper? No. FOOTWEAR - STEP 3: Does the patient need only verbal/nonverbal cueing or touching/steadying/contact guard assistance fro m one helper? Yes. 1. [id number] ADMISSION PERFORMANCE: Supervision or touching assistance CODE: 04 ROLL LEFT AND RIGHT: ROLL LEFT AND RIGHT - STEP 1: Does the patient complete the activity by him/herself with no assistance (physical, verbal/nonverbal cueing, setup/clean-up)? No. ROLL LEFT AND RIGHT - STEP 2: Does the patient need only setup/clean-up assistance from one helper? Yes. 1. [id number] ADMISSION PERFORMANCE: Setup or clean-up assistance CODE: 05 SIT TO LYING: SIT TO LYING - STEP 1: Does the patient complete the activity by him/herself with no assistance (physical, verbal/nonverbal cueing, setup/clean-up)? No. SIT TO LYING - STEP 2: Does the patient need only setup/clean-up assistance from one helper? Yes. 1. [id number] ADMISSION PERFORMANCE: Setup or clean-up assistance CODE: 05 LYING TO SITTING: LYING TO SITTING ON SIDE OF BED - STEP 1: Does the patient complete the activity by him/herself with no assistance (physical, verbal/nonverbal cueing, setup/clean-up)? No. LYING TO SITTING ON SIDE OF BED - STEP 2: Does the patient need only setup/clean-up assistance from one helper? Yes. 1. [id number] ADMISSION PERFORMANCE: Setup or clean-up assistance CODE: 05 SIT TO STAND: SIT TO STAND - STEP 1: Does the patient complete the activity by him/herself with no assistance (physical, verbal/nonverbal cueing, setup/clean-up)? No. SIT TO STAND - STEP 2: Does the patient need only setup/clean-up assistance from one helper? Yes. 1. [id number] ADMISSION PERFORMANCE: Setup or clean-up assistance CODE: 05 TRANSFERS: BED, CHAIR: CHAIR/[id number] TRANSFER - STEP 1: Does the patient complete the activity by him/herself with no assistance (physical, verbal/nonverbal cueing, setup/clean-up)? No. CHAIR/[id number] TRANSFER - STEP 2: Does the patient need only setup/clean-up assistance from one helper? Yes. 1. [id number] ADMISSION PERFORMANCE: Setup or clean-up assistance CODE: 05 TRANSFER TOILET: TOILET TRANSFER - STEP 1: Does the patient complete the activity by him/herself with no assistance (physical, verbal/nonverbal cueing, setup/clean-up)? Yes. 1. [id number] ADMISSION PERFORMANCE: Independent CODE: 06 TRANSFERS: CAR: Not assessed/no information CODE: - WALK 10 FEET: Not assessed/no information CODE: - 1 STEP (CURB): Not assessed/no information CODE: - PICKING UP OBJECT: Not assessed/no information CODE: - DOES THE PATIENT USE A WHEELCHAIR/SCOOTER? Q1. DOES THE PATIENT USE A WHEELCHAIR/SCOOTER?: Yes CODE: 1 WHEEL 50 FEET WITH TWO TURNS: WHEEL 50 FEET WITH TWO TURNS - STEP 1: Does the patient complete the activity by him/herself with no assistance (physical, verbal/nonverbal cueing, setup/clean-up)? Yes. 1. [id number] ADMISSION PERFORMANCE: Independent CODE: 06 INDICATE THE TYPE OF WHEELCHAIR/SCOOTER USED: RR1. INDICATE THE TYPE OF WHEELCHAIR/SCOOTER USED.: Manual CODE: 1 WHEEL 150 FEET: WHEEL 150 FEET - STEP 1: Does the patient complete the activity by him/herself with no assistance (physical, verbal/nonverbal cueing, setup/clean-up)? Yes. 1. [id number] ADMISSION PERFORMANCE: Independent CODE: 06 INDICATE THE TYPE OF WHEELCHAIR/SCOOTER USED: SS1. INDICATE THE TYPE OF WHEELCHAIR/SCOOTER USED.: Manual CODE: 1 BLADDER AND BOWEL: H350. BLADDER CONTINENCE (3-DAY ASSESSMENT PERIOD): Always continent (no documented incontinence) CODE: 0 H400. BOWEL CONTINENCE (3-DAY ASSESSMENT PERIOD): Always continent CODE: 0 SIGNATURE PANEL: The following modified sections: 1. OH3458D Admission Performance, 1. [id number] Admission Performance, 1. KH7508L Admission Performance, 1. OW5076L Admission Performance, 1. AY7818C Admission Performance, 1. PF9755i Admission Performance, 1. UC4914t Admission Performance, 1. HQ6937z Admission Performance , 1. WB6593D Admission Performance, 1. HF9366R Admission Performance, 1. JZ3060U Admission Performanc e, 1. XG8764Q Admission Performance, 1. MM1379P Admission Performance, 1. CJ3768W Admission Performan ce, 1. HP4923E Admission Performance, Q1. Does the patient use a wheelchair/scooter?, 1. OI6544B Admi ssion Performance, RR1. Indicate the type of wheelchair/scooter used., 1. KD0741A Admission Performan ce, Code, SS1. Indicate the type of wheelchair/scooter used., H350. Bladder Continence (3-day assessm ent period), H400. Bowel Continence (3-day assessment period) were [electronically] signed by Kylah TolliverNJuan F on WedOct 12 2019 14:00:19 GMT-0600 (Central Standard Time)
[2019-10-12] MEDS: TRAZODONE 150 MG TAB PO SCH (20:27)
[2019-10-12] MEDS: BACLOFEN 10 MG TAB PO SCH (20:28)
[2019-10-12] MEDS: FENOFIBRATE MICRONIZED 67 MG PO SCH (20:28)
[2019-10-12] MEDS: ATORVASTATIN 10 MG TAB PO SCH (20:28)
[2019-10-13] MEDS: LINZESS 72 MCG PO SCH (06:32)
[2019-10-13] MEDS: LEVOTHYROXINE SOD 0.075 MG TAB PO SCH (06:32)
[2019-10-13] MEDS: POLYETHYL GLY 3350 17 GM/DOSE PO SCH (08:00)
[2019-10-13] MEDS: PROMOD 30 ML DOSE PO SCH ×2 (08:00→19:12)
[2019-10-13] MEDS: MAGNESIUM HYDROXIDE 8% 30 ML PO SCH ×2 (08:00→19:08)
[2019-10-13] MEDS: TRAMADOL HCL 50 MG TAB PO PRN ×3 (08:09→19:11)
[2019-10-13] MEDS: NICOTINE 14 MG/PAT TD SCH (08:11)
[2019-10-13] MEDS: lisinopriL 10 MG TAB PO SCH (08:12)
[2019-10-13] MEDS: VENLAFAXINE HCL XR 75 MG CAP PO SCH (08:12)
[2019-10-13] MEDS: MAGNESIUM OXIDE 400 MG TAB PO SCH ×2 (08:13→19:10)
[2019-10-13] MEDS: GABAPENTIN 300 MG CAP PO SCH (08:13)
[2019-10-13] MEDS: APIXABAN 2.5 MG TABLET PO SCH ×2 (08:13→19:11)
[2019-10-13] MEDS: FISH OIL 1200 MG PO SCH (08:14)
[2019-10-13] MEDS: LIDOCAINE 4% PATCH TOP SCH (10:37)
--- NOTE | 2019-10-13 15:13 | FAST ---
ENCOUNTER DATE AND TIME: 10/13/2019 08:00 (BLOOD BANK BUSINESS MANAGER) NAME DIMITRY KAPLAN DATE OF : 1945 DATE OF ADMISSION: 10/05/2019 13:55 (BLOOD BANK BUSINESS MANAGER) PHONE: AGE: 74 N# [id number] GENDER: Female ENCOUNTER PHYSICIAN: Dr. Magdi Rosales M.D. ADMISSION DIAGNOSIS: - Debility 16 - Debility (16) Left Open Trimalleolar Ankle Fracture. EATING: EATING - STEP 1: Does the patient complete the activity by him/herself with no assistance (physical, verbal/nonverbal cueing, setup/clean-up)? Yes. 1. [id number] ADMISSION PERFORMANCE: Independent CODE: 06 ORAL HYGIENE: ORAL HYGIENE - STEP 1: Does the patient complete the activity by him/herself with no assistance (physical, verbal/nonverbal cueing, setup/clean-up)? Yes. 1. [id number] ADMISSION PERFORMANCE: Independent CODE: 06 TOILETING HYGIENE: Not assessed/no information CODE: - BATHING: SHOWER/BATHE SELF - STEP 1: Does the patient complete the activity by him/herself with no assistance (physical, verbal/nonverbal cueing, setup/clean-up)? Yes. 1. [id number] ADMISSION PERFORMANCE: Independent CODE: 06 DRESSING - UPPER BODY: DRESSING - UPPER BODY - STEP 1: Does the patient complete the activity by him/herself with no assistance (physical, verbal/nonverbal cueing, setup/clean-up)? Yes. 1. [id number] ADMISSION PERFORMANCE: Independent CODE: 06 DRESSING - LOWER BODY: DRESSING - LOWER BODY - STEP 1: Does the patient complete the activity by him/herself with no assistance (physical, verbal/nonverbal cueing, setup/clean-up)? Yes. 1. [id number] ADMISSION PERFORMANCE: Independent CODE: 06 PUTTING ON/TAKING OFF FOOTWEAR: FOOTWEAR - STEP 1: Does the patient complete the activity by him/herself with no assistance (physical, verbal/nonverbal cueing, setup/clean-up)? Yes. 1. [id number] ADMISSION PERFORMANCE: Independent CODE: 06 DOES THE PATIENT USE A WHEELCHAIR/SCOOTER? CODE: EXPR INDICATE THE TYPE OF WHEELCHAIR/SCOOTER USED: CODE: EXPR INDICATE THE TYPE OF WHEELCHAIR/SCOOTER USED: CODE: EXPR BLADDER AND BOWEL: CODE: EXPR CODE: EXPR SIGNATURE PANEL: The following modified sections: 1. KS7666Q Admission Performance, 1. BJ4244V Admission Performance, 1. GJ2835q Admission Performance, 1. EV3153p Admission Performance, 1. UD7776j Admission Performance, 1. HW5825k Admission Performance were [electronically] signed by Luiza Aragon OT on WedOct 13 2 019 15:11:55 GMT-0600 (Central Standard Time)
[2019-10-13] MEDS: FENOFIBRATE MICRONIZED 67 MG PO SCH (19:09)
[2019-10-13] MEDS: ATORVASTATIN 10 MG TAB PO SCH (19:10)
[2019-10-13] MEDS: BACLOFEN 10 MG TAB PO SCH (19:11)
[2019-10-13] MEDS: TRAZODONE 150 MG TAB PO SCH (19:11)
[2019-10-13] MEDS: PREGABALIN 50 MG CAP PO SCH (19:15)
--- NOTE | 2019-10-14 00:48 | PN ---
Subjective: She is feeling good except for right thigh pain and shooting pain in the knee is happeni ng today. Otherwise, she is stable. Physical Examination: Vital Signs: Blood pressure 143/60, pulse 75. HEENT: No JVD. No carotid bruits. Chest: Clear. Heart: Regular, afebrile. Abdomen: No guarding, no rebound, no rigidity. Assessment And Plan: 1.Right-sided radicular pain from right lower back to thigh to knee. We will place lidocaine patch on the right knee. Start Lyrica 50 mg p.o. b.i.d. Stop gabapentin. 2.Constipation. Continue MiraLAX and milk of magnesia daily. Stop Linzess, but will resume if we h ave to. Prognosis fair. MARKUS/BETY Voice ID: [id number] Report ID: [id number]
[2019-10-14] MEDS: LEVOTHYROXINE SOD 0.075 MG TAB PO SCH (06:29)
[2019-10-14] MEDS: LIDOCAINE 4% PATCH TOP SCH (06:30)
[2019-10-14] MEDS: PROMOD 30 ML DOSE PO SCH ×2 (08:00→19:12)
[2019-10-14] MEDS ORDERED: LIDOCAINE 4% PATCH TOP SCH (08:00)
[2019-10-14] MEDS: MAGNESIUM HYDROXIDE 8% 30 ML PO SCH ×2 (08:18→19:12)
[2019-10-14] MEDS: POLYETHYL GLY 3350 17 GM/DOSE PO SCH (08:18)
[2019-10-14] MEDS: FISH OIL 1200 MG PO SCH (08:20)
[2019-10-14] MEDS: NICOTINE 14 MG/PAT TD SCH (08:20)
[2019-10-14] MEDS: TRAMADOL HCL 50 MG TAB PO PRN ×3 (08:21→19:11)
[2019-10-14] MEDS: MAGNESIUM OXIDE 400 MG TAB PO SCH ×2 (08:22→19:10)
[2019-10-14] MEDS: lisinopriL 10 MG TAB PO SCH (08:22)
[2019-10-14] MEDS: VENLAFAXINE HCL XR 75 MG CAP PO SCH (08:22)
[2019-10-14] MEDS: APIXABAN 2.5 MG TABLET PO SCH ×2 (08:22→19:11)
[2019-10-14] MEDS: PREGABALIN 50 MG CAP PO SCH ×2 (09:47→19:10)
--- NOTE | 2019-10-14 15:18 | R.PN ---
ENCOUNTER DATE AND TIME: 10/14/2019 15:15 (AUTOMOTIVE PORTER) NAME DIMITRY CHOUDHARY DATE OF : 1945 DATE OF ADMISSION: 10/05/2019 13:55 (AUTOMOTIVE PORTER) Left Open Trimalleolar Ankle FractureCHIEF COMPLAINT: Left leg fracture SUBJECTIVE: Pt denied any depression. Pt denied any Shortness of Breath. She reports improved muscle spasms in her left leg after physical therapy. She is doing well with phy sical and occupational therapy. Hgb 10.6, prealbumin 15.2. She has no new complaints. VITAL SIGNS Temperature: 97.2 F SBP/DBP: 145/70 Pulse: 79 Resp: 16 MEDICATION ALLERGIES: No Known Drug Allergies (NKDA) ENVIRONMENTAL ALLERGIES: None Known - Substance Allergies None Known - Other Allergies None Known NURSING: - Shower allowing shower PRECAUTIONS: - Weight Bearing Precaution NWB left LE ACTIVITIES OOB only with supervision THERAPIES: - Dietary and Nutrition Adequate Nutrition. Nutritional Education. Nutritional Supplements. PHYSICAL EXAM - Gen Alert and awake Lying in bed No apparent distress Oriented to: person, time, and place - Skin No skin breakdown. Normacephalic - Eyes No abnormalities - ENMT No abnormalities - Neck No abnormalities - CVS RRR - Chest No abnormalities - Resp Clear to auscultation - Abd Soft - GI Non distended Deferred - No abnormalities - Ext Left leg in brace following ORIF. - MSK 4+/5 weakness in left lower extremity - Neuro 4/5 strength left lower extremity. - Psych No abnormalities ASSESSMENT: Pt. is a 74 yo Right-handed white female.On 10/02/2019 she was admitted to [facility] with diagnosis Left Open Trimalleolar Ankle Fracture.Her impairment category is Debility 16 - Debility (16).Pre-morbidly, Pt. was independent/mod-I in Locomotion, Safety Awareness, Balance, Soci al Cognition, Transfers Control, Self-Care, Sphincter Control, Communication, and Endurance; and she had good Locomotion, Safety Awareness, Social Cognition, Balance, Transfers Control, Sphincter Contro l, Self-Care, Communication, and Endurance.Currently, she has deficits of Locomotion, Safety Awarenes s, Transfers Control, Self-Care, and Endurance.Pt. is now referred to [facility] for acute in-patient rehabilitation in order to maximize patient's functional independence in acti vities of daily living, strength, ROM, and mobility.- Rehab Goal Patient has realistic goal of being discharged at assistance level 6-Veronique to reside at Home with Fam marjorie/Relatives. MDM/PLAN: - Physical Therapy Gait dysfunction - to improve, our physical therapists will perform initial evaluation of pt's statu s upon admission and devise an individualized program for Gait Training, and Wheel Chair mobility Inability to transfer - to improve, our physical therapists will perform initial evaluation of pt's status upon admission and devise an individualized program for Bed mobility Need for home safety evaluation - to improve, our physical therapists will perform initial evaluatio n of pt's status upon admission and devise an individualized program for Home Evaluation Need in caregiver upon discharge - to improve, our physical therapists will perform initial evaluati on of pt's status upon admission and devise an individualized program for Caregiver Training New precaution - to improve, our physical therapists will perform initial evaluation of pt's status upon admission and devise an individualized program for Patient precaution education Poor endurance - to improve, our physical therapists will perform initial evaluation of pt's status upon admission and devise an individualized program for Endurance Training Weakness - to improve, our physical therapists will perform initial evaluation of pt's status upon a dmission and devise an individualized program for Aquatic Therapy, Neuromuscular Reeducation, and Str engthening Achieving independence - to improve, our physical therapists will perform initial evaluation of pt's status upon admission and devise an individualized program for Community Reintegration Activities - Occupational Therapy ADL deficits - to improve, our occupation therapists will perform initial evaluation of pt's status upon admission and devise an individualized program for Bathing, Bed mobility, Community Reintegratio n, Cooking, Dressing, Eating, Fine Motor Skills, Grooming, Homemaking, Kitchen Mobility, Laundry, Pat ient Education, Safety Awareness, Splinting - Positioning, Transfers(Toilet, Tub, Shower), and Wheel Chair Management Need for home health care coordinator - to improve, our occupation therapists will perform initial evaluation of pt's status upon admission and devise an individualized program for Caregiver Training Weakness - to improve, our occupation therapists will perform initial evaluation of pt's status upon admission and devise an individualized program for Aquatic Therapy, Balance, Endurance, UE ROM, and UE strengthening - Other See attached MAR (Medication Administration Record) See attached MAR (Medication Administration Record) Dimitry Choudhary.pdf - Diet Type Continue Regular - Diet - Liquid Texture Continue Regular - Tube Feed Continue N/A - Weight Bearing Precaution NWB left LE - Diet - Solid Texture Continue Regular - Shower allowing shower FUNCTIONAL STATUS: UPDATED AT WEEKLY TEAM CONFERENCE - Bladder Same accident frequency: 7-Ind - No accidents in the past 7 days - Bowel Same accident frequency: 7-Ind - No accidents in the past 7 days - Walking Same score based on distance walked: 0(N/A) - Wheelchair Same score based on distance traveled: 0(N/A) FUNCTIONAL STATUS: - Self-Care A. Eating Ind B. Grooming Veronique C. Bathing Mikhail D. Dressing - Upper Mikhail E. Dressing - Lower modA F. Toileting sup - Sphincter Control G. Bladder control Veronique H. Bowel control Veronique - Transfers Control I. Bed/Chair/Wheelchair sup J. Toilet Mikhail K. Tub/Shower modA - Locomotion L. Walk/Wheelchair (C) sup M. Stairs maxA - Communication N. Comprehension (B) Ind O. Expression (B) Ind - Social Cognition P. Social Interaction Ind Q. Problem Solving Ind R. Memory Ind - Endurance Good - Balance Good - Safety Awareness Good QI SCORES: - Self-Care A. Eating 05-Setup or clean-up assistance B. Oral hygiene 05-Setup or clean-up assistance C. Toileting hygiene 03-Partial/moderate assistance E. Shower/bathe self 04-Supervision or touching assistance F. Upper body dressing 05-Setup or clean-up assistance G. Lower body dressing 02-Substantial/maximal assistance H. Putting on/taking off footwear 02-Substantial/maximal assistance - Mobility A. Roll left and right 03-Partial/moderate assistance B. Sit to lying 03-Partial/moderate assistance C. Lying to sitting on side of bed 03-Partial/moderate assistance D. Sit to stand 01-Dependent E. Chair/zrd-ls-ecevn transfer 02-Substantial/maximal assistance F. Toilet transfer 02-Substantial/maximal assistance G. Car transfer 88-Not attempted due to medical condition or safety concerns I. Walk 10 feet 88-Not attempted due to medical condition or safety concerns J. Walk 50 feet with two turns 88-Not attempted due to medical condition or safety concerns K. Walk 150 feet 88-Not attempted due to medical condition or safety concerns L. Walking 10 feet on uneven surfaces 88-Not attempted due to medical condition or safety concerns M. 1 step (curb) 88-Not attempted due to medical condition or safety concerns N. 4 steps 88-Not attempted due to medical condition or safety concerns O. 12 steps 88-Not attempted due to medical condition or safety concerns P. Picking up object 88-Not attempted due to medical condition or safety concerns R. Wheel 50 feet with two turns 88-Not attempted due to medical condition or safety concerns S. Wheel 150 feet 88-Not attempted due to medical condition or safety concerns - Bladder and Bowel Bladder continence 0-Always continent Bowel continence 0-Always continent - Endurance Fair - Balance Poor - Safety Awareness Fair CURRENT FUNC. DEFICITS: Self-Care, Mobility, Endurance, Balance, and Safety Awareness SIGNATURE PANEL: (AUTOMOTIVE PORTER)
[2019-10-14] MEDS: FENOFIBRATE MICRONIZED 67 MG PO SCH (19:09)
[2019-10-14] MEDS: TRAZODONE 150 MG TAB PO SCH (19:11)
[2019-10-14] MEDS: BACLOFEN 10 MG TAB PO SCH (19:11)
[2019-10-14] MEDS: ATORVASTATIN 10 MG TAB PO SCH (19:11)
--- NOTE | 2019-10-14 22:57 | PN ---
Subjective: Natalya is feeling little better. Her pain is improving. Denies any chest pain, nausea, vomiting. Physical Examination: Vital Signs: Blood pressure 124/58. Chest: Clear. Heart: Regular. Musculoskeletal: Right knee pain. Right-sided thigh pain from radicular origin in the back. Assessment And Plan: 1.Radiculopathy. Continue Lyrica and lidocaine patch. 2.Chronic obstructive pulmonary disease, currently stable. 3.Hypertension, stable, 124/58. 4.Constipation. She had a good BM today and continue on the regimen. Avoid narcotics. RVD/MODL Voice ID: [id number] Report ID: [id number]
[2019-10-15] MEDS: LEVOTHYROXINE SOD 0.075 MG TAB PO SCH (06:26)
[2019-10-15] MEDS: LIDOCAINE 4% PATCH TOP SCH (07:04)
[2019-10-15] MEDS: POLYETHYL GLY 3350 17 GM/DOSE PO SCH (08:00)
[2019-10-15] MEDS: lisinopriL 10 MG TAB PO SCH ×2 (08:00→10:28)
[2019-10-15] MEDS: PROMOD 30 ML DOSE PO SCH ×2 (08:00→19:35)
[2019-10-15] MEDS: FISH OIL 1200 MG PO SCH (08:08)
[2019-10-15] MEDS: MAGNESIUM HYDROXIDE 8% 30 ML PO SCH ×2 (08:08→19:34)
[2019-10-15] MEDS: APIXABAN 2.5 MG TABLET PO SCH ×2 (08:09→19:35)
[2019-10-15] MEDS: TRAMADOL HCL 50 MG TAB PO PRN ×3 (08:09→19:34)
[2019-10-15] MEDS: PREGABALIN 50 MG CAP PO SCH ×2 (08:11→19:35)
[2019-10-15] MEDS: VENLAFAXINE HCL XR 75 MG CAP PO SCH (08:11)
[2019-10-15] MEDS: MAGNESIUM OXIDE 400 MG TAB PO SCH ×2 (08:11→19:34)
[2019-10-15] MEDS: NICOTINE 14 MG/PAT TD SCH (10:29)
[2019-10-15] MEDS: FENOFIBRATE MICRONIZED 67 MG PO SCH (19:34)
[2019-10-15] MEDS: ATORVASTATIN 10 MG TAB PO SCH (19:34)
[2019-10-15] MEDS: TRAZODONE 150 MG TAB PO SCH (19:35)
[2019-10-15] MEDS: BACLOFEN 10 MG TAB PO SCH (19:35)
--- NOTE | 2019-10-15 21:57 | PN ---
Subjective: Natalya is doing really good. Has constipation, which has improved. Right thigh pain, ri ght knee pain, and right back pain have improved. She also had left neck pain, which went into spasm when they were trying to work on getting in and out of a car, which has improved clinically also. Physical Examination: Vital Signs: Blood pressure 122/56, pulse 70. HEENT: No JVD. No carotid bruits. Chest: Clear. Heart: Regular. Assessment And Plan: 1.Ankle fracture. Continue OT and PT. Possible discharge Wednesday. 2.Constipation. Current management with milk of magnesia and MiraLAX, is improved. 3.Hypertension, currently stable on lesser amount of medications. RVD/MODL Voice ID: [id number] Report ID: [id number]
[2019-10-16] MEDS: TRAMADOL HCL 50 MG TAB PO PRN ×3 (05:49→17:37)
[2019-10-16] MEDS: LEVOTHYROXINE SOD 0.075 MG TAB PO SCH (06:17)
[2019-10-16] MEDS: PROMOD 30 ML DOSE PO SCH ×3 (08:00→20:00)
[2019-10-16] MEDS: MAGNESIUM HYDROXIDE 8% 30 ML PO SCH ×2 (08:21→20:00)
[2019-10-16] MEDS: LIDOCAINE 4% PATCH TOP SCH (08:21)
[2019-10-16] MEDS: POLYETHYL GLY 3350 17 GM/DOSE PO SCH (08:23)
[2019-10-16] MEDS: VENLAFAXINE HCL XR 75 MG CAP PO SCH (08:23)
[2019-10-16] MEDS: PREGABALIN 50 MG CAP PO SCH ×2 (08:23→21:50)
[2019-10-16] MEDS: APIXABAN 2.5 MG TABLET PO SCH ×2 (08:24→21:50)
[2019-10-16] MEDS: lisinopriL 10 MG TAB PO SCH (08:24)
[2019-10-16] MEDS: MAGNESIUM OXIDE 400 MG TAB PO SCH ×2 (08:24→21:50)
[2019-10-16] MEDS: NICOTINE 14 MG/PAT TD SCH (08:24)
[2019-10-16] MEDS: FISH OIL 1200 MG PO SCH (08:25)
[2019-10-16] MEDS ORDERED: dexAMETHasone 10 MG/ML VIAL IM ONE (08:30)
[2019-10-16] MEDS ORDERED: dexAMETHasone 4 MG/ML VIAL IM ONE (08:30)
--- NOTE | 2019-10-16 15:05 | FAST ---
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 Magdi Rosales M.D. ADMISSION DIAGNOSIS: - Debility 16 - Debility (16) Left Open Trimalleolar Ankle Fracture. EATING: Not assessed/no information CODE: - ORAL HYGIENE: ORAL HYGIENE - STEP 1: Does the patient complete the activity by him/herself with no assistance (physical, verbal/nonverbal cueing, setup/clean-up)? Yes. 1. [id number] ADMISSION PERFORMANCE: Independent CODE: 06 TOILETING HYGIENE: Not assessed/no information CODE: - BATHING: SHOWER/BATHE SELF - STEP 1: Does the patient complete the activity by him/herself with no assistance (physical, verbal/nonverbal cueing, setup/clean-up)? Yes. 1. ADMISSION PERFORMANCE: Independent CODE: 06 DRESSING - UPPER BODY: DRESSING - UPPER BODY - STEP 1: Does the patient complete the activity by him/herself with no assistance (physical, verbal/nonverbal cueing, setup/clean-up)? Yes. 1. ADMISSION PERFORMANCE: Independent CODE: 06 DRESSING - LOWER BODY: DRESSING - LOWER BODY - STEP 1: Does the patient complete the activity by him/herself with no assistance (physical, verbal/nonverbal cueing, setup/clean-up)? Yes. 1. ADMISSION PERFORMANCE: Independent CODE: 06 PUTTING ON/TAKING OFF FOOTWEAR: FOOTWEAR - STEP 1: Does the patient complete the activity by him/herself with no assistance (physical, verbal/nonverbal cueing, setup/clean-up)? Yes. 1. [id number] ADMISSION PERFORMANCE: Independent CODE: 06 DOES THE PATIENT USE A WHEELCHAIR/SCOOTER? CODE: EXPR INDICATE THE TYPE OF WHEELCHAIR/SCOOTER USED: CODE: EXPR INDICATE THE TYPE OF WHEELCHAIR/SCOOTER USED: CODE: EXPR BLADDER AND BOWEL: CODE: EXPR CODE: EXPR SIGNATURE PANEL: The following modified sections: 1. [id number] Admission Performance, 1. [id number] Admission Performance, 1. UU4021t Admission Performance, 1. RS3308g Admission Performance, 1. LV0694h Admission Performance were [electronically] signed by KELSEY Springer on WedOct 16 2019 15:04:33 GMT-0600 (Central Standard Time)
--- NOTE | 2019-10-16 16:30 | FAST ---
SHIFT START DATE/TIME: 10/16/2019 07:00 (TELEVISION PARTS TESTER) SHIFT END DATE/TIME: 10/16/2019 19:00 (TELEVISION PARTS TESTER) NAME DIMITRY KAPLAN DATE OF : 1945 DATE OF ADMISSION: 10/05/2019 13:55 (TELEVISION PARTS TESTER) PHONE: AGE: 74 SSN# [id number] GENDER: Female ENCOUNTER PHYSICIAN: Dr. Magdi Rosales M.D. ADMISSION DIAGNOSIS: - Debility 16 - Debility (16) Left Open Trimalleolar Ankle Fracture. EATING: EATING - STEP 1: Does the patient complete the activity by him/herself with no assistance (physical, verbal/nonverbal cueing, setup/clean-up)? Yes. 1. [id number] ADMISSION PERFORMANCE: Independent CODE: 06 ORAL HYGIENE: ORAL HYGIENE - STEP 1: Does the patient complete the activity by him/herself with no assistance (physical, verbal/nonverbal cueing, setup/clean-up)? Yes. 1. [id number] ADMISSION PERFORMANCE: Independent CODE: 06 TOILETING HYGIENE: TOILETING HYGIENE - STEP 1: Does the patient complete the activity by him/herself with no assistance (physical, verbal/nonverbal cueing, setup/clean-up)? Yes. 1. [id number] ADMISSION PERFORMANCE: Independent CODE: 06 BATHING: Not assessed/no information CODE: - DRESSING - UPPER BODY: DRESSING - UPPER BODY - STEP 1: Does the patient complete the activity by him/herself with no assistance (physical, verbal/nonverbal cueing, setup/clean-up)? Yes. 1. [id number] ADMISSION PERFORMANCE: Independent CODE: 06 DRESSING - LOWER BODY: DRESSING - LOWER BODY - STEP 1: Does the patient complete the activity by him/herself with no assistance (physical, verbal/nonverbal cueing, setup/clean-up)? Yes. 1. [id number] ADMISSION PERFORMANCE: Independent CODE: 06 PUTTING ON/TAKING OFF FOOTWEAR: FOOTWEAR - STEP 1: Does the patient complete the activity by him/herself with no assistance (physical, verbal/nonverbal cueing, setup/clean-up)? Yes. 1. [id number] ADMISSION PERFORMANCE: Independent CODE: 06 ROLL LEFT AND RIGHT: ROLL LEFT AND RIGHT - STEP 1: Does the patient complete the activity by him/herself with no assistance (physical, verbal/nonverbal cueing, setup/clean-up)? Yes. 1. [id number] ADMISSION PERFORMANCE: Independent CODE: 06 SIT TO LYING: SIT TO LYING - STEP 1: Does the patient complete the activity by him/herself with no assistance (physical, verbal/nonverbal cueing, setup/clean-up)? Yes. 1. [id number] ADMISSION PERFORMANCE: Independent CODE: 06 LYING TO SITTING: LYING TO SITTING ON SIDE OF BED - STEP 1: Does the patient complete the activity by him/herself with no assistance (physical, verbal/nonverbal cueing, setup/clean-up)? Yes. 1. [id number] ADMISSION PERFORMANCE: Independent CODE: 06 SIT TO STAND: SIT TO STAND - STEP 1: Does the patient complete the activity by him/herself with no assistance (physical, verbal/nonverbal cueing, setup/clean-up)? Yes. 1. [id number] ADMISSION PERFORMANCE: Independent CODE: 06 TRANSFERS: BED, CHAIR: CHAIR/[id number]-OAGSI TRANSFER - STEP 1: Does the patient complete the activity by him/herself with no assistance (physical, verbal/nonverbal cueing, setup/clean-up)? Yes. 1. [id number] ADMISSION PERFORMANCE: Independent CODE: 06 TRANSFER TOILET: TOILET TRANSFER - STEP 1: Does the patient complete the activity by him/herself with no assistance (physical, verbal/nonverbal cueing, setup/clean-up)? Yes. 1. [id number] ADMISSION PERFORMANCE: Independent CODE: 06 TRANSFERS: CAR: Not assessed/no information CODE: - WALK 10 FEET: Not assessed/no information CODE: - 1 STEP (CURB): Not assessed/no information CODE: - PICKING UP OBJECT: Not assessed/no information CODE: - DOES THE PATIENT USE A WHEELCHAIR/SCOOTER? Q1. DOES THE PATIENT USE A WHEELCHAIR/SCOOTER?: Yes CODE: 1 WHEEL 50 FEET WITH TWO TURNS: WHEEL 50 FEET WITH TWO TURNS - STEP 1: Does the patient complete the activity by him/herself with no assistance (physical, verbal/nonverbal cueing, setup/clean-up)? Yes. 1. [id number] ADMISSION PERFORMANCE: Independent CODE: 06 INDICATE THE TYPE OF WHEELCHAIR/SCOOTER USED: RR1. INDICATE THE TYPE OF WHEELCHAIR/SCOOTER USED.: Manual CODE: 1 WHEEL 150 FEET: WHEEL 150 FEET - STEP 1: Does the patient complete the activity by him/herself with no assistance (physical, verbal/nonverbal cueing, setup/clean-up)? Yes. 1. [id number] ADMISSION PERFORMANCE: Independent CODE: 06 INDICATE THE TYPE OF WHEELCHAIR/SCOOTER USED: SS1. INDICATE THE TYPE OF WHEELCHAIR/SCOOTER USED.: Manual CODE: 1 BLADDER AND BOWEL: H350. BLADDER CONTINENCE (3-DAY ASSESSMENT PERIOD): Always continent (no documented incontinence) CODE: 0 H400. BOWEL CONTINENCE (3-DAY ASSESSMENT PERIOD): Always continent CODE: 0 SIGNATURE PANEL: The following modified sections: 1. RN3613S Admission Performance, 1. BL2002D Admission Performance, 1. [id number] Admission Performance, 1. WL1156s Admission Performance, 1. OX6599a Admission Performance, 1. LU5647g Admission Performance, 1. UG2054K Admission Performance, 1. NF1842Q Admission Performance , 1. ZJ0839D Admission Performance, 1. DG6177M Admission Performance, 1. LM7024M Admission Performanc e, 1. KV1866Q Admission Performance, Q1. Does the patient use a wheelchair/scooter?, 1. [id number] Admis hannah Performance, RR1. Indicate the type of wheelchair/scooter used., 1. AR5413G Admission Performanc e, Code, SS1. Indicate the type of wheelchair/scooter used., H350. Bladder Continence (3-day assessme nt period), H400. Bowel Continence (3-day assessment period) were [electronically] signed by Janeen Coppola C.N.A. on WedOct 16 2019 16:30:19 GMT-0600 (Central Standard Time)
[2019-10-16] MEDS: TRAZODONE 150 MG TAB PO SCH (21:51)
[2019-10-16] MEDS: ATORVASTATIN 10 MG TAB PO SCH (21:51)
[2019-10-16] MEDS: BACLOFEN 10 MG TAB PO SCH (21:51)
[2019-10-16] MEDS: FENOFIBRATE MICRONIZED 67 MG PO SCH (21:51)
--- NOTE | 2019-10-16 23:48 | PN ---
Subjective: Ms. Choudhary is doing lot better. Denies chest pain, nausea, or vomiting. She is doing good with physical therapy. Continues to have neck pain on the left side since she was trying to ge t in the car during the physical therapy training for ankle fracture. Physical Examination: Vital Signs: Blood pressure 126/62, pulse is 75. HEENT: No JVD. No carotid bruits. Chest: Clear. Heart: Regular. Abdomen: No guarding. No rebound. No rigidity. Assessment And Plan: 1.Ankle fracture. Continue PT. Possible discharge tomorrow. 2.Constipation, improved now with current management. 3.Chronic radicular pain. She is on Lyrica now and is helping her right leg. 4.Neck spasm on left side. Give her Decadron 4 mg IM x1 and MRI of neck. 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 MARKUS/BETY Voice ID: [id number] Report ID: [id number]
[2019-10-17 07:14] VITALS: BP 116/56; TEMP 96.8
[2019-10-17] MEDS: LEVOTHYROXINE SOD 0.075 MG TAB PO SCH (07:24)
[2019-10-17] MEDS: POLYETHYL GLY 3350 17 GM/DOSE PO SCH (08:00)
[2019-10-17] MEDS: PROMOD 30 ML DOSE PO SCH (08:00)
[2019-10-17] MEDS: MAGNESIUM HYDROXIDE 8% 30 ML PO SCH (08:00)
[2019-10-17] MEDS: NICOTINE 14 MG/PAT TD SCH (08:09)
[2019-10-17] MEDS: APIXABAN 2.5 MG TABLET PO SCH (08:09)
[2019-10-17] MEDS: VENLAFAXINE HCL XR 75 MG CAP PO SCH (08:09)
[2019-10-17] MEDS: LIDOCAINE 4% PATCH TOP SCH (08:09)
[2019-10-17] MEDS: MAGNESIUM OXIDE 400 MG TAB PO SCH (08:09)
[2019-10-17] MEDS: lisinopriL 10 MG TAB PO SCH (08:10)
[2019-10-17] MEDS: TRAMADOL HCL 50 MG TAB PO PRN (08:10)
[2019-10-17] MEDS: FISH OIL 1200 MG PO SCH (08:11)
[2019-10-17] MEDS: PREGABALIN 50 MG CAP PO SCH (08:40)
--- NOTE | 2019-10-17 13:32 | FAST ---
SHIFT START DATE/TIME: 10/17/2019 07:00 (FLUE GAS ANALYST) SHIFT END DATE/TIME: 10/17/2019 19:00 (FLUE GAS ANALYST) NAME DIMITRY KAPLAN DATE OF : 1945 DATE OF ADMISSION: 10/05/2019 13:55 (FLUE GAS ANALYST) PHONE: AGE: 74 SSN# [id number] GENDER: Female ENCOUNTER PHYSICIAN: Dr. Magdi Rosales M.D. ADMISSION DIAGNOSIS: - Debility 16 - Debility (16) Left Open Trimalleolar Ankle Fracture. EATING: EATING - STEP 1: Does the patient complete the activity by him/herself with no assistance (physical, verbal/nonverbal cueing, setup/clean-up)? Yes. 1. [id number] ADMISSION PERFORMANCE: Independent CODE: 06 ORAL HYGIENE: ORAL HYGIENE - STEP 1: Does the patient complete the activity by him/herself with no assistance (physical, verbal/nonverbal cueing, setup/clean-up)? Yes. 1. [id number] ADMISSION PERFORMANCE: Independent CODE: 06 TOILETING HYGIENE: TOILETING HYGIENE - STEP 1: Does the patient complete the activity by him/herself with no assistance (physical, verbal/nonverbal cueing, setup/clean-up)? Yes. 1. [id number] ADMISSION PERFORMANCE: Independent CODE: 06 BATHING: Not assessed/no information CODE: - DRESSING - UPPER BODY: DRESSING - UPPER BODY - STEP 1: Does the patient complete the activity by him/herself with no assistance (physical, verbal/nonverbal cueing, setup/clean-up)? Yes. 1. [id number] ADMISSION PERFORMANCE: Independent CODE: 06 DRESSING - LOWER BODY: DRESSING - LOWER BODY - STEP 1: Does the patient complete the activity by him/herself with no assistance (physical, verbal/nonverbal cueing, setup/clean-up)? Yes. 1. [id number] ADMISSION PERFORMANCE: Independent CODE: 06 PUTTING ON/TAKING OFF FOOTWEAR: FOOTWEAR - STEP 1: Does the patient complete the activity by him/herself with no assistance (physical, verbal/nonverbal cueing, setup/clean-up)? Yes. 1. [id number] ADMISSION PERFORMANCE: Independent CODE: 06 ROLL LEFT AND RIGHT: ROLL LEFT AND RIGHT - STEP 1: Does the patient complete the activity by him/herself with no assistance (physical, verbal/nonverbal cueing, setup/clean-up)? Yes. 1. [id number] ADMISSION PERFORMANCE: Independent CODE: 06 SIT TO LYING: SIT TO LYING - STEP 1: Does the patient complete the activity by him/herself with no assistance (physical, verbal/nonverbal cueing, setup/clean-up)? Yes. 1. [id number] ADMISSION PERFORMANCE: Independent CODE: 06 LYING TO SITTING: LYING TO SITTING ON SIDE OF BED - STEP 1: Does the patient complete the activity by him/herself with no assistance (physical, verbal/nonverbal cueing, setup/clean-up)? Yes. 1. [id number] ADMISSION PERFORMANCE: Independent CODE: 06 SIT TO STAND: SIT TO STAND - STEP 1: Does the patient complete the activity by him/herself with no assistance (physical, verbal/nonverbal cueing, setup/clean-up)? Yes. 1. [id number] ADMISSION PERFORMANCE: Independent CODE: 06 TRANSFERS: BED, CHAIR: CHAIR/TGG-KZ-BAYSM TRANSFER - STEP 1: Does the patient complete the activity by him/herself with no assistance (physical, verbal/nonverbal cueing, setup/clean-up)? Yes. 1. [id number] ADMISSION PERFORMANCE: Independent CODE: 06 TRANSFER TOILET: TOILET TRANSFER - STEP 1: Does the patient complete the activity by him/herself with no assistance (physical, verbal/nonverbal cueing, setup/clean-up)? Yes. 1. [id number] ADMISSION PERFORMANCE: Independent CODE: 06 TRANSFERS: CAR: Not assessed/no information CODE: - WALK 10 FEET: Not assessed/no information CODE: - 1 STEP (CURB): Not assessed/no information CODE: - PICKING UP OBJECT: Not assessed/no information CODE: - DOES THE PATIENT USE A WHEELCHAIR/SCOOTER? Q1. DOES THE PATIENT USE A WHEELCHAIR/SCOOTER?: Yes CODE: 1 WHEEL 50 FEET WITH TWO TURNS: Not assessed/no information CODE: - INDICATE THE TYPE OF WHEELCHAIR/SCOOTER USED: RR1. INDICATE THE TYPE OF WHEELCHAIR/SCOOTER USED.: Manual CODE: 1 WHEEL 150 FEET: Not assessed/no information CODE: - INDICATE THE TYPE OF WHEELCHAIR/SCOOTER USED: SS1. INDICATE THE TYPE OF WHEELCHAIR/SCOOTER USED.: Manual CODE: 1 BLADDER AND BOWEL: H350. BLADDER CONTINENCE (3-DAY ASSESSMENT PERIOD): Always continent (no documented incontinence) CODE: 0 H400. BOWEL CONTINENCE (3-DAY ASSESSMENT PERIOD): Always continent CODE: 0 SIGNATURE PANEL: The following modified sections: 1. MG5759M Admission Performance, 1. BV1829T Admission Performance, 1. BJ7940D Admission Performance, 1. SQ7003y Admission Performance, 1. WP3890l Admission Performance, 1. NC0646l Admission Performance, 1. XV3280V Admission Performance, 1. CJ3295T Admission Performance , 1. PK7381S Admission Performance, 1. PF6325H Admission Performance, 1. NJ8804I Admission Performanc e, 1. EZ5121N Admission Performance, Q1. Does the patient use a wheelchair/scooter?, RR1. Indicate th e type of wheelchair/scooter used., Code, SS1. Indicate the type of wheelchair/scooter used., H350. B ladder Continence (3-day assessment period), H400. Bowel Continence (3-day assessment period) were [e lectronically] signed by Janeen Bae C.N.A. on WedOct 17 2019 13:31:29 T-0600 (Central Standard Time)
--- NOTE | 2019-10-17 17:36 | R.PN ---
ENCOUNTER DATE AND TIME: 10/16/2019 17:29 (CRUTCHER HELPER) NAME DIMITRY CHOUDHARY DATE OF : 1945 DATE OF ADMISSION: 10/05/2019 13:55 (CRUTCHER HELPER) Left Open Trimalleolar Ankle FractureCHIEF COMPLAINT: Left leg fracture SUBJECTIVE: Pt denied any depression. Pt denied any Shortness of Breath. She reports improved muscle spasms in her left leg after physical therapy. She is doing well with phy sical and occupational therapy. Hgb 9.8, WBC 6.0, prealbumin 16.1. She has no new complaints. Ambulated 60' independently with a rolling walker. Self propelled wheelchair 250' independently. Ambulated 150' with contact guard assistance with a rolling walker. Up and down 5 steps with contact guard assistance. Ambulated 175', 100' with contact guard assistance using a rolling walker. Requires constant verbal e ncouragement. UP and down 5 steps with moderate assistance. VITAL SIGNS Temperature: 97.4 F SBP/DBP: 116/56 Pulse: 81 Resp: 16 MEDICATION ALLERGIES: No Known Drug Allergies (NKDA) ENVIRONMENTAL ALLERGIES: None Known - Substance Allergies None Known - Other Allergies None Known NURSING: - Shower allowing shower PRECAUTIONS: - Weight Bearing Precaution NWB left LE ACTIVITIES OOB only with supervision THERAPIES: - Dietary and Nutrition Adequate Nutrition. Nutritional Education. Nutritional Supplements. PHYSICAL EXAM - Gen Alert and awake Lying in bed No apparent distress Oriented to: person, time, and place - Skin No skin breakdown. Normacephalic - Eyes No abnormalities - ENMT No abnormalities - Neck No abnormalities - CVS RRR - Chest No abnormalities - Resp Clear to auscultation - Abd Soft - GI Non distended Deferred - No abnormalities - Ext Left leg in brace following ORIF. - MSK 4+/5 weakness in left lower extremity - Neuro 4/5 strength left lower extremity. - Psych No abnormalities ASSESSMENT: Pt. is a 74 yo Right-handed white female.On 10/02/2019 she was admitted to [facility] with diagnosis Left Open Trimalleolar Ankle Fracture.Her impairment category is Debility 16 - Debility (16).Pre-morbidly, Pt. was independent/mod-I in Locomotion, Safety Awareness, Balance, Soci al Cognition, Transfers Control, Self-Care, Sphincter Control, Communication, and Endurance; and she had good Locomotion, Safety Awareness, Social Cognition, Balance, Transfers Control, Sphincter Contro l, Self-Care, Communication, and Endurance.Currently, she has deficits of Locomotion, Safety Awarenes s, Transfers Control, Self-Care, and Endurance.Pt. is now referred to [facility] for acute in-patient rehabilitation in order to maximize patient's functional independence in acti vities of daily living, strength, ROM, and mobility.- Rehab Goal Patient has realistic goal of being discharged at assistance level 6-Veronique to reside at Home with Fam marjorie/Relatives. MDM/PLAN: - Physical Therapy Gait dysfunction - to improve, our physical therapists will perform initial evaluation of pt's statu s upon admission and devise an individualized program for Gait Training, and Wheel Chair mobility Inability to transfer - to improve, our physical therapists will perform initial evaluation of pt's status upon admission and devise an individualized program for Bed mobility Need for home safety evaluation - to improve, our physical therapists will perform initial evaluatio n of pt's status upon admission and devise an individualized program for Home Evaluation Need in caregiver upon discharge - to improve, our physical therapists will perform initial evaluati on of pt's status upon admission and devise an individualized program for Caregiver Training New precaution - to improve, our physical therapists will perform initial evaluation of pt's status upon admission and devise an individualized program for Patient precaution education Poor endurance - to improve, our physical therapists will perform initial evaluation of pt's status upon admission and devise an individualized program for Endurance Training Weakness - to improve, our physical therapists will perform initial evaluation of pt's status upon a dmission and devise an individualized program for Aquatic Therapy, Neuromuscular Reeducation, and Str engthening Achieving independence - to improve, our physical therapists will perform initial evaluation of pt's status upon admission and devise an individualized program for Community Reintegration Activities - Occupational Therapy ADL deficits - to improve, our occupation therapists will perform initial evaluation of pt's status upon admission and devise an individualized program for Bathing, Bed mobility, Community Reintegratio n, Cooking, Dressing, Eating, Fine Motor Skills, Grooming, Homemaking, Kitchen Mobility, Laundry, Pat ient Education, Safety Awareness, Splinting - Positioning, Transfers(Toilet, Tub, Shower), and Wheel Chair Management Need for associate director career services - to improve, our occupation therapists will perform initial evaluation of pt's status upon admission and devise an individualized program for Caregiver Training Weakness - to improve, our occupation therapists will perform initial evaluation of pt's status upon admission and devise an individualized program for Aquatic Therapy, Balance, Endurance, UE ROM, and UE strengthening - Other See attached MAR (Medication Administration Record) See attached MAR (Medication Administration Record) Dimitry Choudhary.pdf - Diet Type Continue Regular - Diet - Liquid Texture Continue Regular - Tube Feed Continue N/A - Weight Bearing Precaution NWB left LE - Diet - Solid Texture Continue Regular - Shower allowing shower FUNCTIONAL STATUS: UPDATED AT WEEKLY TEAM CONFERENCE - Bladder Same accident frequency: 7-Ind - No accidents in the past 7 days - Bowel Same accident frequency: 7-Ind - No accidents in the past 7 days - Walking Same score based on distance walked: 0(N/A) - Wheelchair Same score based on distance traveled: 0(N/A) FUNCTIONAL STATUS: - Self-Care A. Eating Ind B. Grooming Veronique C. Bathing Mikhail D. Dressing - Upper Mikhail E. Dressing - Lower modA F. Toileting sup - Sphincter Control G. Bladder control Veronique H. Bowel control Veronique - Transfers Control I. Bed/Chair/Wheelchair sup J. Toilet Mikhail K. Tub/Shower modA - Locomotion L. Walk/Wheelchair (C) sup M. Stairs maxA - Communication N. Comprehension (B) Ind O. Expression (B) Ind - Social Cognition P. Social Interaction Ind Q. Problem Solving Ind R. Memory Ind - Endurance Good - Balance Good - Safety Awareness Good QI SCORES: - Self-Care A. Eating 05-Setup or clean-up assistance B. Oral hygiene 05-Setup or clean-up assistance C. Toileting hygiene 03-Partial/moderate assistance E. Shower/bathe self 04-Supervision or touching assistance F. Upper body dressing 05-Setup or clean-up assistance G. Lower body dressing 02-Substantial/maximal assistance H. Putting on/taking off footwear 02-Substantial/maximal assistance - Mobility A. Roll left and right 03-Partial/moderate assistance B. Sit to lying 03-Partial/moderate assistance C. Lying to sitting on side of bed 03-Partial/moderate assistance D. Sit to stand 01-Dependent E. Chair/rnu-uf-[id number] transfer 02-Substantial/maximal assistance F. Toilet transfer 02-Substantial/maximal assistance G. Car transfer 88-Not attempted due to medical condition or safety concerns I. Walk 10 feet 88-Not attempted due to medical condition or safety concerns J. Walk 50 feet with two turns 88-Not attempted due to medical condition or safety concerns K. Walk 150 feet 88-Not attempted due to medical condition or safety concerns L. Walking 10 feet on uneven surfaces 88-Not attempted due to medical condition or safety concerns M. 1 step (curb) 88-Not attempted due to medical condition or safety concerns N. 4 steps 88-Not attempted due to medical condition or safety concerns O. 12 steps 88-Not attempted due to medical condition or safety concerns P. Picking up object 88-Not attempted due to medical condition or safety concerns R. Wheel 50 feet with two turns 88-Not attempted due to medical condition or safety concerns S. Wheel 150 feet 88-Not attempted due to medical condition or safety concerns - Bladder and Bowel Bladder continence 0-Always continent Bowel continence 0-Always continent - Endurance Fair - Balance Poor - Safety Awareness Fair CURRENT FUNC. DEFICITS: Self-Care, Mobility, Endurance, Balance, and Safety Awareness SIGNATURE PANEL: (CRUTCHER HELPER)
--- NOTE | 2019-10-17 23:09 | PN ---
Subjective: Ms. Choudhary is being discharged today from rehab. She is feeling good. Denies chest p ain, nausea, vomiting, constipation has improved. Blood pressure stabilized. She is not showing low blood pressure anymore. Her discharge medications have been confirmed with nurse. I have asked her to continue lisinopril 10 mg once a day. We reduced it from a higher dose and we also stopped her sp ironolactone as she was in orthostatic hypertension. Condition stable otherwise. MARKUS/BETY Voice ID: [id number] Report ID: [id number]
--- NOTE | 2019-11-01 17:42 | R.DS ---
FACILITY [facility] MR# [id number] NAME DIMIRTY CHOUDHARY ADDRESS [address] [place] [address] PHONE DATE OF 1945 AGE 74 SSN# [id number] GENDER Female DEXTERITY Right-handed MARITAL STATUS RACE White ENCOUNTER PHYSICIAN Dr. Magdi Rosales M.D. REFERRING DOCTOR Tanner Salvador REFERRING FACILITY [facility] DISCHARGE DIAGNOSIS: - Debility 16 - Debility (16) Left Open Trimalleolar Ankle Fracture. DISCHARGE COMORBIDITIES: - Non-Tiered IBS DJD Right Knee - N/A Hypertension Diverticulosis OSteoarthritis DATE OF ADMISSION 10/05/2019 13:55 (CIVIL LITIGATION ATTORNEY) MEDICATION ALLERGIES: No Known Drug Allergies (NKDA) ENVIRONMENTAL ALLERGIES: None Known - Substance Allergies None Known - Other Allergies None Known DISCHARGE MEDICATIONS: Other- ContinueSee attached MAR (Medication Administration Record). ContinueSee attached MAR (Medication Administration Record) Dimitry [email or web address].[email or web address]. NURSING: - Shower allowing shower PRECAUTIONS: - Weight Bearing Precaution NWB left LE ACTIVITIES OOB only with supervision THERAPIES: - Dietary and Nutrition Adequate Nutrition Nutritional Education Nutritional Supplements HISTORY OF PRESENT ILLNESS: Pt. is a 74 yo Right-handed white female.On 10/02/2019 she was admitted to [facility] with diagnosis Left Open Trimalleolar Ankle Fracture.Her impairment category is Debility 16 - Debility (16).Pre-morbidly, Pt. was independent/mod-I in Locomotion, Safety Awareness, Balance, Soci al Cognition, Transfers Control, Self-Care, Sphincter Control, Communication, and Endurance; and she had good Locomotion, Safety Awareness, Social Cognition, Balance, Transfers Control, Sphincter Contro l, Self-Care, Communication, and Endurance.Currently, she has deficits of Locomotion, Safety Awarenes s, Transfers Control, Self-Care, and Endurance.Pt. is now referred to [facility] for acute in-patient rehabilitation in order to maximize patient's functional independence in acti vities of daily living, strength, ROM, and mobility.- Rehab Goal Patient has realistic goal of being discharged at assistance level 6-Veronique to reside at Home with Fam marjorie/Relatives. DIET - LIQUID TEXTURE: On 10/05/2019 Pt was upgraded to Regular Diet - Liquid Texture. DIET - SOLID TEXTURE: On 10/05/2019 Pt was upgraded to Regular Diet - Solid Texture. DIET TYPE: On 10/05/2019 Pt was upgraded to Regular Diet Type. TUBE FEED: On 10/05/2019 Pt was changed to N/A Tube Feed. WEIGHT BEARING PRECAUTION: On 10/05/2019 the following precautions were added for the patient: Weight Bearing Precaution - NWB l eft LE. On 10/05/2019 the following precautions were added for the patient: Weight Bearing Precaution - NWB left LE. On 10/09/2019 the following precautions were removed for the patient: Weight Bearing Precaution - NW B left LE. On 10/14/2019 the following precautions were added for the patient: Weight Bearing Precaution - NWB left LE. DISCHARGE PHYSICAL EXAM - Gen Alert and awake Lying in bed No apparent distress Oriented to: person, time, and place - Skin No skin breakdown. Normacephalic - Eyes No abnormalities - ENMT No abnormalities - Neck No abnormalities - CVS RRR - Chest No abnormalities - Resp Clear to auscultation - Abd Soft - GI Non distended Deferred - No abnormalities - Ext Left leg in brace following ORIF. - MSK 4+/5 weakness in left lower extremity - Neuro 4/5 strength left lower extremity. - Psych No abnormalities FUNCTIONAL STATUS: - Self-Care A. Eating 7-Ind B. Grooming 6-Veronique C. Bathing 5-sup D. Dressing - Upper 5-sup E. Dressing - Lower 5-sup F. Toileting 5-sup - Sphincter Control G. Bladder control 6-Veronique H. Bowel control 6-Veronique - Transfers Control I. Bed/Chair/Wheelchair 5-sup J. Toilet 4-Mikhail K. Tub/Shower 5-sup - Locomotion L. Walk/Wheelchair (C) 6-Veronique M. Stairs 0-ADNO - Communication N. Comprehension (B) 7-Ind O. Expression (B) 7-Ind - Social Cognition P. Social Interaction 7-Ind Q. Problem Solving 7-Ind R. Memory 7-Ind - Endurance Good - Balance Good - Safety Awareness Good QI SCORES: - Self-Care A. Eating 05-Setup or clean-up assistance B. Oral hygiene 05-Setup or clean-up assistance C. Toileting hygiene 03-Partial/moderate assistance E. Shower/bathe self 04-Supervision or touching assistance F. Upper body dressing 05-Setup or clean-up assistance G. Lower body dressing 02-Substantial/maximal assistance H. Putting on/taking off footwear 02-Substantial/maximal assistance - Mobility A. Roll left and right 03-Partial/moderate assistance B. Sit to lying 03-Partial/moderate assistance C. Lying to sitting on side of bed 03-Partial/moderate assistance D. Sit to stand 01-Dependent E. Chair/[id number] transfer 02-Substantial/maximal assistance F. Toilet transfer 02-Substantial/maximal assistance G. Car transfer 88-Not attempted due to medical condition or safety concerns I. Walk 10 feet 88-Not attempted due to medical condition or safety concerns J. Walk 50 feet with two turns 88-Not attempted due to medical condition or safety concerns K. Walk 150 feet 88-Not attempted due to medical condition or safety concerns L. Walking 10 feet on uneven surfaces 88-Not attempted due to medical condition or safety concerns M. 1 step (curb) 88-Not attempted due to medical condition or safety concerns N. 4 steps 88-Not attempted due to medical condition or safety concerns O. 12 steps 88-Not attempted due to medical condition or safety concerns P. Picking up object 88-Not attempted due to medical condition or safety concerns R. Wheel 50 feet with two turns 88-Not attempted due to medical condition or safety concerns S. Wheel 150 feet 88-Not attempted due to medical condition or safety concerns - Bladder and Bowel Bladder continence 0-Always continent Bowel continence 0-Always continent - Endurance Fair - Balance Poor - Safety Awareness Fair DISCHARGE INSTRUCTIONS: - N/A Eliquis 2.5 mg twice daily. DISCHARGE PLAN, FOLLOW UP CARE PROVISIONS: - Estimated Length of Stay (days) 13. - Consensus on plan Discharge plan has been discussed with primary caregiver. Patient/Family is in agreement with the [place] n. Primary caregiver is in agreement with the plan. - Patient/Family Goals Return home with assistance. - Planned Living Setting Upon Discharge Home, to live with Family/Relatives. Transitional Living. SIGNATURE PANEL: (CIVIL LITIGATION ATTORNEY)
== END 2019-10-17 14:30 | disposition home health service (06) | DRG 561 ==
LOC: 5TH 13:55
PROVIDERS: ADMIT Psychiatry & Neurology Neurology with Special Qualifications in Child Neurology; ATTEND Psychiatry & Neurology Neurology with Special Qualifications in Child Neurology
DX: S82.852E Displaced trimalleolar fracture of left lower leg, subsequent encounter for open fracture type I or II with routine healing (principal); I10 Essential (primary) hypertension; K57.90 Diverticulosis of intestine, part unspecified, without perforation or abscess without bleeding; M19.90 Unspecified osteoarthritis, unspecified site; R55 Syncope and collapse; F17.210 Nicotine dependence, cigarettes, uncomplicated
CPT/HCPCS: 36415; 80048; 81001; 82040; 83735; 84134; 85025; 87086; 87088; 97110; 97112; 97116; 97161; 97530; 97542; J1100

== ENCOUNTER 2023-09-15 05:58 | Observation (INO) | payer OTHER ==
[2023-09-10 09:58] LABS: Absolute Lymphocytes (CBC) 0.8 K/uL (0.7-4.9); Hematocrit 35.5 % (36.0-45.0); MCV 95.2 fL (80-100); MPV 6.4 fL (7.6-11.3); Platelets 243 thou/uL (152-406); RBC Red Blood Cell Count 3.73 M/uL (3.86-4.86)
--- NOTE | 2023-09-10 10:14 | RAD REPORT ---
EXAM DESCRIPTION: RAD - Chest Pa And Lat (2 Views) - 09/10/2023 9:58 am CLINICAL HISTORY: pre op for surgery Chest pain. COMPARISON: CHEST PA AND LAT 2 VIEW dated 04/28/2013; CHEST SINGLE VIEW dated 04/28/2013; CT RAD RX FI ELD SPINE dated 03/29/2023; Chest For Pe Angio dated 01/29/2023 FINDINGS: The lungs are emphysematous but clear. The heart is normal in size. No displaced fractures . Right-sided port catheter has its tip in the SVC. IMPRESSION: Mild diffuse COPD.
[2023-09-10 10:20] LABS: Protime INR 1.01
[2023-09-10 10:57] LABS: Potassium 3.7 mEq/L (3.5-5.1)
[2023-09-15] MEDS ORDERED: CEFAZOLIN SODIUM 2 GM/VIAL ONE (06:19)
[2023-09-15] MEDS ORDERED: Ringers Lactate 1,000 ML IV ONE ×3 (06:20→13:11)
[2023-09-15] MEDS ORDERED: LIDOCAINE 2% MPF 5 ML VIAL ONE (07:20)
[2023-09-15] MEDS ORDERED: LIDOCAINE 1% MPF 5 ML VIAL ONE (07:20)
[2023-09-15] MEDS ORDERED: EPINEPHRINE/PF 1 MG/ML AMP ONE (07:21)
[2023-09-15] MEDS ORDERED: MIDAZOLAM HCL 2 MG/2 ML INJ ONE (07:21)
[2023-09-15] MEDS ORDERED: propofoL 200 MG/20 ML VIAL IV ONE (07:21)
[2023-09-15] MEDS ORDERED: dexAMETHasone 10 MG/ML VIAL ONE ×2 (07:21→08:41)
[2023-09-15] MEDS ORDERED: FENTANYL CITR 100 MCG/2 ML ONE ×2 (07:21→11:53)
[2023-09-15] MEDS ORDERED: DEXMEDETOMIDINE HCL 200 MCG/2 ML VIAL ONE (07:22)
[2023-09-15] MEDS ORDERED: BUPIVACAINE 0.25% PF 30 ML VIAL ONE (07:22)
[2023-09-15] MEDS ORDERED: MAGNESIUM SULFATE 1 gm IVPB 1 GM/100 ML BAG IV ONE (07:22)
[2023-09-15] MEDS ORDERED: TRANEXAMIC ACID 1,000 MG/10 ML VIAL IV ONE (07:46)
[2023-09-15] MEDS ORDERED: KETAMINE HCL IN 0.9 % NACL 50 MG/5 ML SYRINGE IV ONE (08:30)
[2023-09-15] MEDS ORDERED: EPHEDRINE SULF 50 MG/ML VIAL ONE (08:34)
[2023-09-15] MEDS ORDERED: ONDANSETRON 4 MG/2 ML VIAL ONE (08:40)
[2023-09-15] MEDS ORDERED: Phenylephrine HCl 10 MG/ML 1 ML VIAL ONE (08:43)
[2023-09-15] MEDS ORDERED: GLYCOPYRROLATE 0.2 MG/ML SYR ONE (08:44)
--- NOTE | 2023-09-15 10:48 | P.BOP ---
Preoperative diagnosis: right knee osteoarthritis Postoperative diagnosis: same Primary procedure: right total knee arthroplasty Five Roll Refiner Batch Mixer: NONE,NONE Estimated blood loss: 40 cc Specimen: right knee bone remnants Anesthesia: General Complications: None Implants: Biomet Cam Persona 8 CR femur, F tibia, 11 CR poly, 32 patella Fluids & blood products: per anesthesia record; TT: 91 mins @ 300 mmHg Transferred to: Recovery Room Condition: Good
[2023-09-15] MEDS ORDERED: ONDANSETRON 4 MG/2 ML VIAL IV PRN (10:50)
[2023-09-15] MEDS ORDERED: ACETAMINOPHEN 325 MG TABLET PO PRN (10:50)
[2023-09-15] MEDS ORDERED: DOCUSATE NA 100 MG CAP PO PRN (10:50)
[2023-09-15] MEDS ORDERED: TRAMADOL HCL 50 MG TAB PO PRN (10:53)
[2023-09-15] MEDS: HYDROMORPHONE HCL 1 MG/ML INJ ONE ×2 (11:12→11:18)
--- NOTE | 2023-09-15 11:29 | RAD REPORT ---
EXAM DESCRIPTION: RAD - Knee Right 2 View - 09/15/2023 11:05 am CLINICAL HISTORY: Post Op Pain and swelling COMPARISON: Knee Right 3 View dated 12/24/2020 FINDINGS: Right total knee arthroplasty has been performed. Skin rosina are noted. Small amount of air is present in the joint. No unexpected postoperative finding.
[2023-09-15 12:48] VITALS: O2SAT 100
--- OUTSIDE RECORDS SUMMARY | 2023-09-15 12:54 | XMS REPORT | Continuity of Care Document ---
:[address] [facility] t Address [address] [place] [address] Care Team Providers Name Role Phone [place] Tanner Attending Clinician Unavailable LEO_MARIA M_Francine_S Attending Clinician Unavailable Abhishek Garcia Attending Clinician Unavailable Rashawn Schaefer Attending Clinician Unavailable Javier Bran Attending Clinician Unavailable Franciscob_Amadeo Attending Clinician Unavailable Lissette Azevedo Attending Clinician Unavailable Wilner Booth Attending Clinician Unavailable WILMA VICTOR M.D. Attending Clinician Unavailable LEO_MARIA M_Naldoa_S Admitting Clinician Unavailable Lissette Azevedo Admitting Clinician Unavailable Rashawn Schaefer Admitting Clinician Unavailable Wally_Amadeo Admitting Clinician Unavailable Wilner Booth Admitting Clinician Unavailable Payers Payer Name Policy Type Policy Number Effective Date Expiration Date S ource MEDICARE B-[place]: [id number] BRIGHT SOLUTIONS Problems Condition Condition Condition Status Onset Resolution Last Treating Co mments Source Name Details Category Date Date Treatment Clinician Date [id number] Primary Problem Comm on osteoarthr Spirit itis of - [facility] right knee [facility] Arthralgia Pain, Problem Commo n of the joint, Spirit ankle ankle, - CHI and/or right [facility] History of History of Problem Resolve [facility] Arthritis Arthritis d Phys ici ans History of History of Problem Resolve [facility] Bowel Bowel d Physici trouble trouble ans History of History of Problem Resolve [facility] Depression Depression d Ph ysici with with ans anxiety anxiety History of History of Problem Resolve UT High blood High blood d Ph ysici pressure pressure ans History of History of Problem Resolve UT high high d Physici cholestero cholestero an s l l History of History of Problem Resolve UT Thyroid Thyroid d Physici disease disease ans Cystocele, Cystocele, Problem Active U T midline midline Physici ans Incomplete Incomplete Problem Active U T bladder bladder Physici emptying emptying ans Allergies, Adverse Reactions, Alerts Allergy Allergy Status Severity Reaction(s) Onset Inactive Treating Comm ents Source Name Type Date Date Clinician No Known DA Active U 2021-11 [facility] 1-21 Clear Allergie 00:00: Anderson s 00 [facility] adhesive DA Active U RASH, SKIN [facility] tape TEARS 6-15 [place] 00:00: d 00 [facility] Family History Family Member Diagnosis Comments Start Date Stop Date Source Unknown Family Family history of Family History [facility] Member diabetes mellitus Unknown Family Family history of Family History [facility] Member cerebrovascular accident (CVA) Unknown Family Family history of Family History [facility] Member cardiac disorder Unknown Family Family history of Family History [facility] Member essential hypertension Social History Social Habit Start Date Stop Date Quantity Comments Source History of Tobacco Current Smoker Co mmon [facility] - [facility] Use [facility] Sex Assigned At Com mon [facility] Smoking Status Start Date Stop Date Source Current Smoker 2021-11-25 00:00:00 Common [facility] Medications Ordered Filled Start Stop Current Ordering Indication Dosage Frequency Signature Comments Components Source Medication Medication Date Date Medication? Clinician (SIG) Name Name Valium 5 MG Valium 5 MG No 1{table Valium 5 4-22 t_as_ne MG 00:00: eded} Valium 5 MG Valium 5 MG No 1{table Valium 5 4-22 t_as_ne MG 00:00: eded} 00 Valium 5 MG Valium 5 MG No 1{table Valium 5 4-22 t_as_ne MG 00:00: eded} 00 Valium 5 MG Valium 5 MG 2-0 No 1{table Valium 5 4-07 t} MG 00:00: 00 Valium 5 MG Valium 5 MG 2-0 No 1{table Valium 5 4-07 t} MG 00:00: 00 Valium 5 MG Valium 5 MG 2-0 No 1{table Valium 5 4-07 t} MG 00:00: 00 Valium 5 MG Valium 5 MG 2-0 No 1{table Valium 5 4-07 t} MG 00:00: 00 Valium 5 MG Valium 5 MG 2-0 No 1{table Valium 5 4-07 t} MG 00:00: 00 Bupivicaine Bupivicaine 2020-0 No 2.5mg Common Bailey Bailey 2-22 Spirit 00:00: - [facility] Kenalog Kenalog 2020-0 No 40mg Common (Triamcinol (Triamcinol 2-22 S pirit one) one) 00:00: - [facility] 00 [facility] Bupivicaine Bupivicaine 2020-0 No 2.5mg Common Bailey Bailey 2-22 Spirit 00:00: - [facility] 00 [facility] Kenalog Kenalog 2020-0 No 40mg Common (Triamcinol (Triamcinol 2-22 S pirit one) one) 00:00: - [facility] 00 [facility] Bupivicaine Bupivicaine 1-0 No 2.5mg Common Bailey Bailey 2-22 Spirit 00:00: - [facility] 00 [facility] Kenalog Kenalog 1-0 No 40mg Common (Triamcinol (Triamcinol 2-22 S pirit one) one) 00:00: - [facility] 00 [facility] Bupivicaine Bupivicaine 1-0 No 2.5mg Common Bailey Bailey 2-22 Spirit 00:00: - [facility] 00 [facility] Kenalog Kenalog 1-0 No 40mg Common (Triamcinol (Triamcinol 2-22 S pirit one) one) 00:00: - [facility] 00 [facility] Bupivicaine Bupivicaine 1-0 No 2.5mg Common Bailey Bailey 2-22 Spirit 00:00: - [facility] 00 [facility] Kenalog Kenalog 2020-0 No 40mg Common (Triamcinol (Triamcinol 2-22 S pirit one) one) 00:00: - [facility] 00 [facility] Bupivicaine Bupivicaine 2020-1 No 5mg Common Bailey Bailey 0-06 Spirit 00:00: - [facility] 00 [facility] Kenalog Kenalog 2019- No 40mg Common (Triamcinol (Triamcinol 0-06 S pirit one) one) 00:00: - [facility] 00 [facility] Bupivicaine Bupivicaine 2019-1 No 5mg Common Bailey Bailey 0-06 Spirit 00:00: - [facility] 00 [facility] Kenalog Kenalog 2019- No 40mg Common (Triamcinol (Triamcinol 0-06 S pirit one) one) 00:00: - [facility] 00 [facility] Bupivicaine Bupivicaine 2019-1 No 5mg Common Bailey Bailey 0-06 Spirit 00:00: - [facility] 00 [facility] Kenalog Kenalog 2019-1 No 40mg Common (Triamcinol (Triamcinol 0-06 S pirit one) one) 00:00: - [facility] 00 [facility] Bupivicaine Bupivicaine 2019-1 No 5mg Common Bailey Bailey 0-06 Spirit 00:00: - [facility] 00 [facility] Kenalog Kenalog 2019-1 No 40mg Common (Triamcinol (Triamcinol 0-06 S pirit one) one) 00:00: - [facility] 00 [facility] Bupivicaine Bupivicaine 2020-1 No 5mg Common Bailey Bailey 0-06 Spirit 00:00: - [facility] 00 [facility] Kenalog Kenalog 2019-1 No 40mg Common (Triamcinol (Triamcinol 0-06 S pirit one) one) 00:00: - [facility] 00 [facility] Hyalgan 20 Hyalgan 20 2020-0 No 20mg C ommon mg mg 7-13 Spirit 00:00: - [facility] 00 [facility] Hyalgan 20 Hyalgan 20 2020-0 No 20mg C ommon mg mg 7-13 Spirit 00:00: - [facility] 00 [facility] Hyalgan 20 Hyalgan 20 2020-0 No 20mg C ommon mg mg 05-27 Spirit 00:00: - [facility] Hyalgan 20 Hyalgan 20 2020-0 No 20mg C ommon mg mg 05-27 Spirit 00:00: - [facility] Hyalgan 20 Hyalgan 20 2020-0 No 20mg C ommon mg mg 05-27 Spirit 00:00: - [facility] Hyalgan 20 Hyalgan 20 2020-0 No 20mg C ommon mg mg 05-20 Spirit 00:00: - [facility] Hyalgan 20 Hyalgan 20 2020-0 No 20mg C ommon mg mg 05-20 Spirit 00:00: - [facility] Hyalgan 20 Hyalgan 20 2020-0 No 20mg C ommon mg mg 05-20 Spirit 00:00: - [facility] Hyalgan 20 Hyalgan 20 2020-0 No 20mg C ommon mg mg 05-20 Spirit 00:00: - [facility] Hyalgan 20 Hyalgan 20 2020-0 No 20mg C ommon mg mg 05-20 Spirit 00:00: - [facility] Hyalgan 20 Hyalgan 20 2020-0 No 20mg C ommon mg mg 05-13 Spirit 00:00: - [facility] Bupivicaine Bupivicaine 2020-0 No 4mL Common Bailey Bailey 05-13 Spirit 00:00: - [facility] Kenalog Kenalog 2020-0 No 40mg Common (Triamcinol (Triamcinol 6-29 S pirit one) one) 00:00: - [facility] Hyalgan 20 Hyalgan 20 2020-0 No 20mg C ommon mg mg 05-13 Spirit 00:00: - [facility] Bupivicaine Bupivicaine 2020-0 No 4mL Common Bailey Bailey 05-13 Spirit 00:00: - [facility] Kenalog Kenalog 2020-0 No 40mg Common (Triamcinol (Triamcinol 6-29 S pirit one) one) 00:00: - [facility] Hyalgan 20 Hyalgan 20 2020-0 No 20mg C ommon mg mg 05-13 Spirit 00:00: - [facility] 00 [facility] Bupivicaine Bupivicaine 2020-0 No 4mL Common Bailey Bailey - Spirit 00:00: - [facility] 00 [facility] Kenalog Kenalog 2020-0 No 40mg Common (Triamcinol (Triamcinol 6-29 S pirit one) one) 00:00: - [facility] 00 [facility] Hyalgan 20 Hyalgan 20 2020-0 No 20mg C ommon mg mg 05-13 Spirit 00:00: - [facility] 00 [facility] Bupivicaine Bupivicaine 2020-0 No 4mL Common Bailey Bailey 05-13 Spirit 00:00: - [facility] 00 [facility] Kenalog Kenalog 2020-0 No 40mg Common (Triamcinol (Triamcinol - S pirit one) one) 00:00: - [facility] 00 [facility] Hyalgan 20 Hyalgan 20 2020-0 No 20mg C ommon mg mg 05-13 Spirit 00:00: - [facility] 00 [facility] Bupivicaine Bupivicaine 2020-0 No 4mL Common Bailey Bailey - Spirit 00:00: - [facility] 00 [facility] Kenalog Kenalog 2020-0 No 40mg Common (Triamcinol (Triamcinol -29 S pirit one) one) 00:00: - [facility] 00 [facility] Bupivicaine Bupivicaine 2020-0 No 4mL Common Bailey Bailey 2-13 Spirit 00:00: - [facility] 00 [facility] Kenalog Kenalog 2020-0 No 1mL Common (Triamcinol (Triamcinol 2-13 S pirit one) one) 00:00: - [facility] 00 [facility] Bupivicaine Bupivicaine 2020-0 No 4mL Common Bailey Bailey 2-13 Spirit 00:00: - [facility] 00 [facility] Kenalog Kenalog 2020-0 No 1mL Common (Triamcinol (Triamcinol 2-13 S pirit one) one) 00:00: - [facility] 00 [facility] Bupivicaine Bupivicaine 2020-0 No 4mL Common Bailey Bailey 2-13 Spirit 00:00: - [facility] 00 [facility] Kenalog Kenalog 2020-0 No 1mL Common (Triamcinol (Triamcinol 2-13 S pirit one) one) 00:00: - [facility] 00 [facility] Bupivicaine Bupivicaine 2020-0 No 4mL Common Bailey Bailey 2-13 Spirit 00:00: - [facility] 00 [facility] Kenalog Kenalog 2020-0 No 1mL Common (Triamcinol (Triamcinol 2-13 S pirit one) one) 00:00: - [facility] 00 [facility] Bupivicaine Bupivicaine 2020-0 No 4mL Common Bailey Bailey 2-13 Spirit 00:00: - [facility] 00 [facility] Kenalog Kenalog 2020-0 No 1mL Common (Triamcinol (Triamcinol 2-13 S pirit one) one) 00:00: - [facility] 00 [facility] Venlafaxine Venlafaxine Yes Yoan TAKE ONE Common HCl ER HCl ER [facility] (1) Spirit CAPSULE(S) - [facility] BY MOUTH [facility] ONCE [facility] Tramadol Tramadol Yes Yoan (Schedule Common HCl HCl [facility] IV Drug) Spirit TAKE ONE - [facility] (1) St TABLET(S) [facility] BY MOUTH Medical EVERY SIX Center HOURS NEEDED FOR PAIN. Fenofibrate Fenofibrate Yes Yoan TAKE ONE Common Micronized Micronized [facility] (1) Spi rit CAPSULE(S) - [facility] BY MOUTH [facility] ONCE [facility] DAY. [facility] Levothyroxi Levothyroxi Yes Yoan TAKE ONE Common ne Sodium ne Sodium [facility] (1) Spiri t TABLET(S) - [facility] BY MOUTH [facility] EVERY [facility] MORNING ON Medical AN EMPTY Center STOMACH. Trazodone Trazodone Yes Yoan TAKE ONE Common HCl HCl [facility] (1) Spirit TABLET(S) - [facility] BEDTIME. [facility] Lisinopril Lisinopril Yes Yoan TAKE ONE Common [facility] (1) Spirit TABLET(S) - [facility] M[facility]CE [facility] DAY[facility] Gabapentin Gabapentin Yes Yoan TAKE ONE Common [facility] (1) Spirit CAPSULE(S) - [facility] BY MOUTH [facility] THREE [facility] TIMES A Medical DAY. Center Pravastatin Pravastatin Yes Yoan TAKE ONE Common Sodium Sodium [facility] (1) Spirit TABLET(S) - [facility] BY MOUTH [facility] ONCE [facility] DAY [facility] WITH PM Medical MEAL. Center Mitigare Mitigare Yes Yoan TAKE ONE Common [facility] (1) Spirit TABLET(S) - [facility] BY MOUTH [facility] EVERY TWO [facility] HOURS FOR Medical GOUT PAIN. Center TAKE UNTIL PAIN GOES AWAY OR DIARRHEA STARTS. Colchicine Colchicine Yes Yoan TAKE ONE Common [facility] (1) Spirit TABLET(S) - [facility] BY MOUTH [facility] EVERY TWO [facility] HOURS FOR Medical GOUT PAIN. Center TAKE UNTIL PAIN GOES AWAY OR DIARRHEA STARTS. Lisinopril- Lisinopril- Yes Yoan not Common Hydrochloro Hydrochloro [facility] defined [facility] thiazide thiazide - [facility] Eliquis Eliquis Yes Yoan not Common [facility] defined Spirit - [facility] Pregabalin Pregabalin Yes Yoan not Common [facility] defined [facility] Baclofen Baclofen Yes Yoan not Comm on [facility] defined [facility] Fenofibrate Fenofibrate No Fenofibrat Micronized Micronized e 67 MG 67 MG Micronized 67 MG Gabapentin Gabapentin No Gabapentin 100 MG 100 MG 100 MG Centrum Centrum No Centrum Silver Silver Silver traZODone traZODone No traZODone HCl HCl HCl Vitamin D Vitamin D No Vitamin D Pravastatin Pravastatin No Pravastati Sodium 20 Sodium 20 n Sodium MG MG 20 MG Levothyroxi Levothyroxi No Levothyrox ne Sodium ne Sodium ine Sodium 75 MCG 75 MCG 75 MCG Fish Oil Fish Oil No Fish Oil Venlafaxine Venlafaxine No Venlafaxin HCl ER 75 HCl ER 75 e HCl ER MG MG 75 MG Losartan Losartan No Losartan Potassium-H Potassium-H Potassium- CTZ CTZ HCTZ Fenofibrate Fenofibrate No Fenofibrat Micronized Micronized e 67 MG 67 MG Micronized 67 MG Gabapentin Gabapentin No Gabapentin 100 MG 100 MG 100 MG traZODone traZODone No traZODone HCl HCl HCl Vitamin D Vitamin D No Vitamin D Pravastatin Pravastatin No Pravastati Sodium 20 Sodium 20 n Sodium MG MG 20 MG Levothyroxi Levothyroxi No Levothyrox ne Sodium ne Sodium ine Sodium 75 MCG 75 MCG 75 MCG Centrum Centrum No Centrum Silver Silver Silver Fish Oil Fish Oil No Fish Oil Venlafaxine Venlafaxine No Venlafaxin HCl ER 75 HCl ER 75 e HCl ER MG MG 75 MG Losartan Losartan No Losartan Potassium-H Potassium-H Potassium- CTZ CTZ HCTZ Fenofibrate Fenofibrate No Fenofibrat Micronized Micronized e 67 MG 67 MG Micronized 67 MG Gabapentin Gabapentin No Gabapentin 100 MG 100 MG 100 MG traZODone traZODone No traZODone HCl HCl HCl Vitamin D Vitamin D No Vitamin D Pravastatin Pravastatin No Pravastati Sodium 20 Sodium 20 n Sodium MG MG 20 MG Levothyroxi Levothyroxi No Levothyrox ne Sodium ne Sodium ine Sodium 75 MCG 75 MCG 75 MCG Centrum Centrum No Centrum Silver Silver Silver Fish Oil Fish Oil No Fish Oil Venlafaxine Venlafaxine No Venlafaxin HCl ER 75 HCl ER 75 e HCl ER MG MG 75 MG Losartan Losartan No Losartan Potassium-H Potassium-H Potassium- CTZ CTZ HCTZ Fenofibrate Fenofibrate No Fenofibrat Micronized Micronized e 67 MG 67 MG Micronized 67 MG Gabapentin Gabapentin No Gabapentin 100 MG 100 MG 100 MG traZODone traZODone No traZODone HCl HCl HCl Vitamin D Vitamin D No Vitamin D Pravastatin Pravastatin No Pravastati Sodium 20 Sodium 20 n Sodium MG MG 20 MG Levothyroxi Levothyroxi No Levothyrox ne Sodium ne Sodium ine Sodium 75 MCG 75 MCG 75 MCG Gabapentin Gabapentin Yes R.N. UT 100 MG TABS 100 MG TABS P hysici ans Centrum Centrum No Centrum Silver Silver Silver Fish Oil Fish Oil No Fish Oil Venlafaxine Venlafaxine No Venlafaxin HCl ER 75 HCl ER 75 e HCl ER MG MG 75 MG Losartan Losartan No Losartan Potassium-H Potassium-H Potassium- CTZ CTZ HCTZ Fenofibrate Fenofibrate No Fenofibrat Micronized Micronized e 67 MG 67 MG Micronized 67 MG traZODone traZODone No traZODone HCl HCl HCl Centrum Centrum No Centrum Silver Silver Silver Losartan Losartan No Losartan Potassium-H Potassium-H Potassium- CTZ CTZ HCTZ Vitamin D Vitamin D No Vitamin D Gabapentin Gabapentin No Gabapentin 100 MG 100 MG 100 MG Effexor 75 Effexor 75 Yes R.N. UT MG TABS MG TABS Physici ans Levothyroxi Levothyroxi No Levothyrox ne Sodium ne Sodium ine Sodium 75 MCG 75 MCG 75 MCG Fish Oil Fish Oil No Fish Oil Venlafaxine Venlafaxine No Venlafaxin HCl ER 75 HCl ER 75 e HCl ER MG MG 75 MG Pravastatin Pravastatin No Pravastati Sodium 20 Sodium 20 n Sodium MG MG 20 MG Fenofibrate Fenofibrate No Fenofibrat Micronized Micronized e 67 MG 67 MG Micronized 67 MG traZODone traZODone No traZODone HCl HCl HCl Centrum Centrum No Centrum Silver Silver Silver Losartan Losartan No Losartan Potassium-H Potassium-H Potassium- CTZ CTZ HCTZ Vitamin D Vitamin D No Vitamin D Gabapentin Gabapentin No Gabapentin 100 MG 100 MG 100 MG traZODone traZODone Yes R.N. UT HCl - 150 HCl - 150 Physi ci MG Oral MG Oral ans Tablet Tablet Levothyroxi Levothyroxi No Levothyrox ne Sodium ne Sodium ine Sodium 75 MCG 75 MCG 75 MCG Fish Oil Fish Oil No Fish Oil Venlafaxine Venlafaxine No Venlafaxin HCl ER 75 HCl ER 75 e HCl ER MG MG 75 MG Pravastatin Pravastatin No Pravastati Sodium 20 Sodium 20 n Sodium MG MG 20 MG Fenofibrate Fenofibrate No Fenofibrat Micronized Micronized e 67 MG 67 MG Micronized 67 MG traZODone traZODone No traZODone HCl HCl HCl Centrum Centrum No Centrum Silver Silver Silver Losartan Losartan No Losartan Potassium-H Potassium-H Potassium- CTZ CTZ HCTZ Vitamin D Vitamin D No Vitamin D Gabapentin Gabapentin No Gabapentin 100 MG 100 MG 100 MG Spironolact Spironolact Yes R.N. U T one 25 MG one 25 MG Physi ci Oral Tablet Oral Tablet a ns Levothyroxi Levothyroxi No Levothyrox ne Sodium ne Sodium ine Sodium 75 MCG 75 MCG 75 MCG Fish Oil Fish Oil No Fish Oil Venlafaxine Venlafaxine No Venlafaxin HCl ER 75 HCl ER 75 e HCl ER MG MG 75 MG Pravastatin Pravastatin No Pravastati Sodium 20 Sodium 20 n Sodium MG MG 20 MG Fenofibrate Fenofibrate No Fenofibrat Micronized Micronized e 67 MG 67 MG Micronized 67 MG traZODone traZODone No traZODone HCl HCl HCl Centrum Centrum No Centrum Silver Silver Silver Losartan Losartan No Losartan Potassium-H Potassium-H Potassium- CTZ CTZ HCTZ Vitamin D Vitamin D No Vitamin D Gabapentin Gabapentin No Gabapentin 100 MG 100 MG 100 MG Lisinopril- Lisinopril- Yes R.N. U T hydroCHLORO hydroCHLORO P hysici thiazide thiazide ans 20-12.5 MG 20-12.5 MG Oral Tablet Oral Tablet Levothyroxi Levothyroxi No Levothyrox ne Sodium ne Sodium ine Sodium 75 MCG 75 MCG 75 MCG Fish Oil Fish Oil No Fish Oil Venlafaxine Venlafaxine No Venlafaxin HCl ER 75 HCl ER 75 e HCl ER MG MG 75 MG Pravastatin Pravastatin No Pravastati Sodium 20 Sodium 20 n Sodium MG MG 20 MG Fenofibrate Fenofibrate No Fenofibrat Micronized Micronized e 67 MG 67 MG Micronized 67 MG Gabapentin Gabapentin No Gabapentin 100 MG 100 MG 100 MG Centrum Centrum No Centrum Silver Silver Silver traZODone traZODone No traZODone HCl HCl HCl Vitamin D Vitamin D No Vitamin D Pravastatin Pravastatin No Pravastati Sodium 20 Sodium 20 n Sodium MG MG 20 MG Levothyroxi Levothyroxi Yes R.N. U T ne Sodium ne Sodium Physi ci 75 MCG Oral 75 MCG Oral a ns Tablet Tablet Levothyroxi Levothyroxi No Levothyrox ne Sodium ne Sodium ine Sodium 75 MCG 75 MCG 75 MCG Fish Oil Fish Oil No Fish Oil Venlafaxine Venlafaxine No Venlafaxin HCl ER 75 HCl ER 75 e HCl ER MG MG 75 MG Losartan Losartan No Losartan Potassium-H Potassium-H Potassium- CTZ CTZ HCTZ Fenofibrate Fenofibrate Yes R.N. U T 67 MG Oral 67 MG Oral Phy sici Capsule Capsule ans Stool Stool Yes R.N. UT Softener Softener Physici TABS TABS ans Pearls IC Pearls IC Yes R.N. UT Oral Oral Physici Capsule Capsule ans Benefiber Benefiber Yes R.N. UT TABS TABS Physici ans Linzess Linzess Yes R.N. UT CAPS CAPS Physici ans Vital Signs Vital Name Observation Time Observation Value Comments Source height 2021-11-25 69 [in_i] [facility] - 10:00:00 [facility] weight 2021-11-25 199 [lb_av] Common [facility] - 10:00:00 [facility] temperature 2021-11-25 97.7 [degF] Common [facility] - 10:00:00 [facility] bmi 2021-11-25 29.38 kg/m2 Common [facility] - 10:00:00 [facility] blood pressure 2021-11-25 132 mm[Hg] Common [facility] - systolic 10:00:00 [facility] blood pressure 2021-11-25 86 mm[Hg] Common [facility] - diastolic 10:00:00 [facility] BP Systolic 2019-03-22 118 mm[Hg] Location: LUE; [facility] 11:35:00 Position: Sitting BP Diastolic 2019-03-22 60 mm[Hg] Location: LUE; [facility] 11:35:00 Position: Sitting Height 2019-03-22 66.75 [in_us] [facility] 11:35:00 Weight 2019-03-22 209 [lb_av] [facility] 11:35:00 Body Mass Index 2019-03-22 32.98 kg/m2 [facility] Calculated 11:35:00 Procedures Procedure Date / Time Performing Clinician Source Performed [id number] 2022-04-30 00:00:00 [facility] [id number] 2022-04-30 00:00:00 [facility] [QL] CULTURE, URINE, 2019-03-22 00:00:00 [facility] ROUTINE History of Vaginal [facility] Hysterectomy History of Cholecystectomy [facility] Encounters Start End Encounter Admission Attending Care Care Encounter Source Date/Time Date/Time Type Type Clinicians Facility Department ID 2023-07-06 Outpatient [place], STLMLC STLMLC [id number] Common 10:58:00 Tanner [id number] [facility] 2021-12-10 Outpatient [place], STLMLC STLMLC [id number] Common 14:33:39 Tanner [facility] 2021-12-10 Outpatient [place], STLMLC STLMLC [id number] Common 12:30:53 Tanner [id number] [facility] 2023-09-12 2023-09-12 Outpatient [id number] [id number] PRIV [id number] [facility] 00:00:00 00:00:00 audreya_S [id number] Medic al 2022-10-21 2022-10-21 Outpatient EL Meerasahib, HCACL DAYS G00 [id number] [facility] 08:30:00 09:00:00 Abhishek 89 [facility] 2022-10-15 2022-10-15 Outpatient JACK Garcia, HCACL OUTD G00 [id number] [facility] 13:22:00 13:22:00 Abhishek 12 [facility] 2022-10-15 2022-10-15 (TEL) STLMLC STLMLC [id number] Co mmon 00:00:00 00:00:00 [facility] 2022-10-06 2022-10-06 Outpatient JACK Garcia, HCACL DAYS G00 [id number] [facility] 05:00:00 05:00:00 Abhishek 55 [facility] 2022-09-18 2022-09-18 Outpatient JACK Schaefer, [facility] [id number] [facility] 08:00:00 08:00:00 Rashawn 72 [facility] 2022-09-16 2022-09-16 Outpatient JACK Schaefer, [facility] [id number] [facility] 12:05:00 12:05:00 Rashawn 57 [facility] 2022-08-06 2022-08-06 Outpatient JACK Bran, [facility] [id number] [facility] 11:40:00 11:40:00 Souad 78 [facility] 2022-07-28 2022-07-28 Outpatient Goldfarb_D [facility] [id number] [place] 00:00:00 00:00:00 [id number] [facility] 2022-07-23 2022-07-23 Outpatient Goldfarb_D [facility] [id number] [place] 00:00:00 00:00:00 [id number] [facility] 2022-06-26 2022-06-26 Outpatient JAKC Ganthi, [facility] RADI [id number] [facility] 09:26:00 09:26:00 Lissette 11 [facility] 2022-04-30 2022-05-02 Inpatient JACK Booth [facility] [id number] [facility] 05:40:00 11:02:00 , Wilner 46 [facility] 2022-04-302022-05-02 Inpatient JACK Booth [facility] [id number] [facility] 05:40:00 11:02:00 , Wilner [id number] [facility] 2022-04-07 2022-04-07 (TEL) STLMLC STLMLC [id number] Co mmon 00:00:00 00:00:00 [facility] 2022-03-05 2022-03-05 (TEL) STLMLC STLMLC [id number] Co mmon 00:00:00 00:00:00 [facility] 2022-02-19 2022-02-19 (TEL) STLMLC STLMLC [id number] Co mmon 00:00:00 00:00:00 [facility] 2022-02-12 2022-02-12 (TEL) STLMLC STLMLC [id number] Co mmon 00:00:00 00:00:00 [facility] 2021-12-29 2021-12-29 (TEL) STLMLC STLMLC [id number] Co mmon 00:00:00 00:00:00 [facility] 2021-11-28 2021-11-28 (TEL) STLMLC STLMLC [id number] Co mmon 00:00:00 00:00:00 [facility] 2021-11-26 2021-11-26 (TEL) STLMLC STLMLC [id number] Co mmon 00:00:00 00:00:00 [facility] 2021-11-25 2021-11-25 OFFICE STLMLC STLMLC [id number] Co mmon 00:00:00 00:00:00 VISIT [facility] LEVEL 4 [facility] 2021-04-03 2021-04-03 Outpatient STLMLC STLMLC [id number] Common 00:00:00 00:00:00 [facility] 2021-01-06 2021-01-06 Outpatient STLMLC STLMLC [id number] Common 00:00:00 00:00:00 [facility] 2020-12-23 2020-12-23 Outpatient STLMLC STLMLC [id number] Common 00:00:00 00:00:00 [facility] 2020-08-20 2020-08-20 Outpatient STLMLC STLMLC [id number] Common 00:00:00 00:00:00 [facility] 2020-07-30 2020-07-30 Outpatient STLMLC STLMLC [id number] Common 00:00:00 00:00:00 [facility] 2020-05-27 2020-05-27 Outpatient [facility] [id number] Common 11:00:00 11:00:00 [facility] 2020-05-20 2020-05-20 Out[facility] [id number] Common 11:00:00 11:00:00 [facility] 2020-05-13 2020-05-13 Outpatient [facility] [id number] Common 11:00:00 11:00:00 [facility] 2020-04-16 2020-04-16 Outpatient [facility] [id number] Common 15:00:00 15:00:00 [facility] of [facility] 2020-03-12 2020-03-12 [facility] [id number] Common 11:00:00 11:00:00 t Bone Bone [facility] Sp[facility] t [facility] 2019-12-28 2019-12-28 [facility] [id number] Common 14:30:00 14:30:00 t Bone Bone and Spiri t and Joint Joint - [facility] 2019-12-13 2019-12-13 [facility] [id number] Common 10:38:00 10:38:00 t Bone Bone and Spiri t and Joint Joint - [facility] 2019-11-30 2019-11-30 Outpatient Neva [facility] 29 [id number] Common 13:24:00 13:24:00 t Bone Bone and Spiri t and Joint Joint - [facility] 2019-11-27 2019-11-27 Outpatient Neva Hookst 28 [id number] Common 14:30:00 14:30:00 t Bone Bone and Spiri t and Joint Joint - [facility] 2019-11-06 2019-11-06 Outpatient Neva Hookst 28 [id number] Common 09:00:00 09:00:00 t Bone Bone and Spiri t and Joint Joint - [facility] 2019-10-24 2019-10-24 Outpatient Neva Hookst 28 [id number] Common 12:18:00 12:18:00 t Bone Bone and Spiri t and Joint [facility] - [facility] 2019-03-22 2019-03-22 MILO Limon [facility] 51 [id number] ID 11:20:00 11:20:00 t; [facility] Quinn DILLON Results Test Description Test Time Test Comments Results Result Comments Source BASIC METABOLIC PANEL 2022-10-21 09:09:00 Test Item Value Reference Range Interpretation Comme nts SODIUM (test code = NA) 136 mEq/L 134-147 N POTASSIUM (test code = K) 4.1 mEq/L 3.4-5.0 N CHLORIDE (test code = CL) 101 mEq/L 100-108 N CARBON DIOXIDE (test code = 29 mEq/l 21-33 N CO2) ANION GAP (test code = GAP) 10 0-20 N GLUCOSE (test code = GLU) 110 mg/dL 70-110 N BLOOD UREA NITROGEN (test code 11 mg/dL 7-18 N = BUN) GLOMERULAR FILTRATION RATE 89.6 70-80 H T he Glomerular Filtration Rate is (test code = GFR) a calculat ed parameterbased on serum Creatinin e, patient age and sex. GFR values less than 60 mL/min/1.73 squ are meters are indicative ofCh ronic Kidney Disease. Values less than 15 mL/min/1.73squa re meters indicate Kidney failure. The calculation forGFR is based on the CKD-EPI (2020) calculat ion. This formulais race indifferent and is the recommended formula for GFRby the [facility] for Adults.The GFR will not calculate if th e sex is unknown or if thepatien t's age is <18 years. CREATININE (test code = CREAT) 0.7 mg/dL 0.6-1.3 N CALCIUM (test code = CA) 10.0 mg/dL 8.0-10.5 N PROTHROMBIN [id number] 09:07:00 Test Item Value Reference Range Interpretation Comments PROTHROMBIN TIME 12.6 SECONDS 9.3-12.9 N PATIENT (test code = PTP) INTERNATIONAL NORMAL 1.1 0.8-1.2 N TARGET INR BY RATIO (test code = INDICATIO N Indication INR) INR1. Prophylax is of venous thrombos is 2.0 - 3.0 (orthoped ic surgery), Proph ylaxis of venous throm bosis (other than hig h-risk surgery), Treat ment of Deep Vein Thrombosis/Pulm onary Embolism, Preve ntion of systemic emb olism - Tissue heart va lves, Acute Myocardia l Infarction (to prevent systemic emboli sm), Valvular heart disease, Atrial Fibrillation, Bileaflet mecha nical valve in aortic position.2. Mec hanical prosthetic valv es (high risk), 2. 5 - 3.5 Presence of Lup us Anticoagulant o r Antiphospholipi d Antibodies, Pre vention of systemic emb olism - Acute Myocardia l Infarction (to prevent recurrent infar ct). CBC W/AUTO [id number] 09:00:00 Test Item Value Reference Range Interpretation Comments WHITE BLOOD CELL (test code = 6.5 x10 3/uL 4.5-11.0 N WBC) RED BLOOD CELL (test code = 3.77 x10 6/uL 3.54-5.02 N RBC) HEMOGLOBIN (test code = HGB) 10.8 g/dL 11.0-15.0 L HEMATOCRIT (test code = HCT) 33.6 % 33.0-45.0 N MEAN CELL VOLUME (test code = 89.1 fL 81.0-99.0 N MCV) MEAN CELL HGB (test code = MCH) 28.6 pg 27.0-33.0 N MEAN CELL HGB CONCETRATION 32.1 g/dL 33.0-37.0 L (test code = MCHC) RED CELL DISTRIBUTION WIDTH CV 14.4 % 11.5-14.5 N (test code = RDW) RED CELL DISTRIBUTION WIDTH SD 46.4 fL 37.0-54.0 N (test code = RDW-SD) PLATELET COUNT (test code = 311 x10 3/uL 150-400 N PLT) MEAN PLATELET VOLUME (test code 8.7 fL 7.0-9.0 N = MPV) NEUTROPHIL % (test code = NT%) 61.9 % 56.0-77.0 N IMMATURE GRANULOCYTE % (test 0.3 % 0.0-2.0 N code = IG%) LYMPHOCYTE % (test code = LY%) 23.3 % 14.0-32.0 N MONOCYTE % (test code = MO%) 9.1 % 4.8-9.0 H EOSINOPHIL % (test code = EO%) 4.8 % 0.3-3.7 H BASOPHIL % (test code = BA%) 0.6 % 0.0-2.0 N NUCLEATED RBC % (test code = 0.0 % 0-0 N NRBC%) NEUTROPHIL # (test code = NT#) 4.02 x10 3/uL 2.0-7.6 N IMMATURE GRANULOCYTE # (test 0.02 x10 3/uL 0.00-0.03 N code = IG#) LYMPHOCYTE # (test code = LY#) 1.51 x10 3/uL 1.0-3.8 N MONOCYTE # (test code = MO#) 0.59 x10 3/uL 0.1-0.8 N EOSINOPHIL # (test code = EO#) 0.31 x10 3/uL 0.0-0.2 H BASOPHIL # (test code = BA#) 0.04 x10 3/uL 0.0-0.2 N NUCLEATED RBC # (test code = 0.00 x10 3/uL 0.0-0.1 N NRBC#) MANUAL DIFF REQUIRED (test code NO = MDIFF) - US GUIDANCE [facility] [id number] 00:00:00 [facility] DAGOBERTO ROOSEVELTName: NATALYA KAPLAN : 1945 Sex: F FAX: Abhishek Hamm MD [phone] [place]: St: PRE Name: NATALYA KAPLAN [facility] Dagoberto Anderson : 1945 Age/S: 77/F [address] [place] [address] Unit #: [id number] Loc: [place] [address] Phys: Abhishek Garcia MD Acct: [id number] Dis Date: Status: PRE SDC PHONE #: [phone] Exam Date: 10/21/2022 1215 FAX #: [phone] Reason: VASCULAR ACCESS EXAMS: CPT CODE: [id number] US GUIDANCE VASC ACCESS [id number] Combinedreport. Please see report for the MediPort placement, same date. at 1210 Reported and signed by: Cruzito Mitchell M.D. CC: Abhishek Garcia MD Technologist: RT Bharat(R)(CT) Trnscrd Date/Time/By: 10/21/2022 (1210) : By: [email or web address] Orig Print D/T: S: 10/21/2022 (1210) PAGE 1 Signed Report- FLUORO GUID CTRL ACC [id number] 00:00:00 [facility] DAGOBERTO ROOSEVELTName: NATALYA KAPLAN : 1945 Sex: F FAX: Cruzito Chavira [phone] [place]: St: PRE FAX: Abhishek Hamm MD [phone] ---- Name: NATALYA KAPLAN [facility] Bailey : 1945 Age/S: 77/F [address] [place] [address] Unit #: [id number] Loc: [place] [address] Phys: Cruzito Mitchell MD Acct: [id number] Dis Date: Status: PRE [facility] PHONE #: [phone] Exam Date: 10/21/2022 1215 FAX #: [phone] Reason: LUNG NODULE,NEOPLASM OF KIDNEY, ADRENAL MASS, C EXAMS: CPT CODE: [id number] FLUORO GUID CTRL ACC DEV [id number] PROCEDURE INFORMATION: Exam: IR Central Central Venous Access Device Procedure Exam date and time: 10/21/2022 11:02 AM Age: 77 years old Clinical indication: Condition or disease; Condition/disease: Lung nodule, neoplasm of kidney, adrenal mass, colon cancer TECHNIQUE: Imaging protocol: Insertion, repositioning, contrast injection,or removal of a tunneled centrally inserted central venous access device, or mechanical removal of intraluminal obstruction from central venous access device. Images documented and reported. Fluoroscopy guidance was provided. COMPARISON: CT CHEST W/CONTRAST 06/26/2022 11:52 AM RADIATION DOSE METRICS: Fluoroscopy time (seconds): 0.3 Number of fluoro spot images: 1 Reference air kerma (DEBBIE): 7 mGy FINDINGS: CONSENT AND SEDATION INFO: Consent: The risks, benefits and alternatives of the procedure were discussed. Informed consent was obtained. Time out: Timeout was performed prior to the procedure. Level of sedation: " I supervised moderate sedation during this procedure. " The patient was monitored by nurse using automated blood pressure, EKG and pulse oximetry. " The moderate sedation record is perm anently stored in the hospital information system. Medications for sedation: 1 mg of IV Versed and 100 micrograms of IV Fentanyl. Total intra-service sedation time (minutes): 26 minutes. Sterile technique: All elements of maximal sterile barrier technique were followed which include cap, mask, sterilegown, sterile gloves, sterile full-body drape, hand hygiene, 2% chlorhexidine for cutaneous antisepsis (skin prep), sterile ultrasound gel, and sterile probe cover. Procedure summary: The right neck and upper chest was sterilely prepped and draped. 1% lidocaine was used for local anesthesia. Ultrasound was used to evaluate potential venous access sites. Patency of the internal jugular vein was confirmed. Realtime ultrasound guidance was used to visualize vascular needle entry into the internal jugular vein. Ultrasound imaging of the needle puncture was obtained for permanent recording and reporting. The guidewire was advanced centrally. The port pocket was created PAGE 1 Signed Report (CONTINUED) FAX: Cruzito Chavira [phone] [place]: St: PRE FAX: Abhishek Hamm MD [phone] - Name: NATALYA KAPLAN [facility] : 1945 Age/S: 77/F [address] [place] [address] Unit #: [id number] Loc: [place] [address] Phys: Cruzito Mitchell MD Acct: [id number] Dis Date: Status: PRE SDC PHONE #: Exam Date: 10/21/2022 1215 FAX #: [phone] Reason: LUNG NODULE,NEOPLASM OF KIDNEY, ADRENAL MASS, C EXAMS: CPT CODE: [id number] FLUORO GUID CTRL ACC DEV [id number] (Continued) in the sub-clavicular chest region. The port catheter was tunneled from the pocket superiorly to the neck puncture site. The catheter was cut to the appropriate length and advanced intravascularly through a peel away sheath in the internal jugular vein. The sheath was removed, and a final radiograph was obtained. Theneck incision and port pocket were closed using Vicryl suture, Dermabond. The catheter was flushed with heparinized saline. A sterile dressing was applied. Post-procedure imaging: The final radiograph demonstrates the tip of the catheter to be located in the superior vena cava. No evidence for a pneumothorax. Estimated Blood loss: None. Complications: There were no evident complications and patient had no complaints. IMPRESSION: Successful placement of a tunneled right IJ access port catheter using ultrasound and fluoroscopic guidance. The port catheter is ready for immediate use. at 1209 Reported and signed by: Cruzito Mitchell M.D. CC: Cruzito Mitchell MD; Abhishek Garcia MD Technologist: RT Bharat(R)(CT) Trnvard Date/Time/By: 10/21/2022 (2374) : By: [email or web address] Orig Print D/T: S: 10/21/2022 (5346) PAGE 2 Signed [id number] 10:06:00 Test Item Value Reference Range Interpretation Comments SURGICAL (test code = SR) -----RUN DATE: 10/21/22 [facility] - LAB PAGE 1 RUN TIME: 1125 Specimen Inquiry RUN USER: INTERFACE -----PATIENT: NATALYA KAPLAN LOC: [place] U #: [id number] AGE/SX: 77/F ROOM: RE10/06/22REG DR: Abhishek Garcia MD : [birth year] BED: DIS: STATUS: [facility] TLOC: ----- SPEC #: [id number] RECD: 10/07/22 STATUS: CHRISTY GILL #: [id number] KENNEDI: 10/06/22- SUBM DR: Abhishek Garcia MD ENTERED: 10/07/22 SP TYPE: SURGICAL OTHR DR: Mychal Melo Sonal MDORDERED: 54985, 74377, IHC ADD 50203/8, 42242-51/14, ANATOMIC SPEC COPIES TO: Mychal Melo [address] [facility] [address] [place] [address] Abhishek Garcia MD [address] [place] [address] Lissette Azevedo MD [address] [place] [address] PROCEDURES: 44518 (10/07/22-0836) 63353 (10/07/22-160) IHC ADD 29521 (10/07/22-160) 98515-41 (10/14/22-939) TISSUES: A. ADRENAL GLAND, LEFT - CT GUIDED MASS BX ADDENDUM FINDINGS Addendum #1 Entered: 10/21/22 Upon clinical request, FISH translocation analysis was perfomred and interpreted by[facility] with the following results. Please refer to the original report of [facility]for details. Interpretation:BCL6 rearrangement: Not DetectedMYC rearrangement: Not Detected (See Below)MYC amplification: Not DetectedBCL2 rearrangement: Not Detectedt(8;14): Not Detected (See Below) This study revealed abnormalities involving: CONTINUED ON NEXT PAGE -----RUN DATE: 10/21/22 [facility] - LAB PAGE 2 RUN TIME: 1125 Specimen Inquiry RUN USER: INTERFACE -----SPEC #: [id number] PATIENT: EUSEBIONATALYA Myra #[id number] (Continued) ADDENDUM FINDINGS (Continued) the MYC probe set (3 4F, 54.0%, normal < 16.2%) indicative of gain(s) of the MYC generegion or extra copies of chromosome 8/8q, the t(8;14) probe set (>2G, 72.0%, normal <16.2%) suggestive of duplication of IGH/chromosome 14 or an IGH rearrangement to a locusother than MYC, (3 4R3 4A, 56.0%, normal < 16.2%) indicative of gain of chromosome 8.Counts for the remaining probes were within the normal reference range. These findingsrepresent an ABNORMAL result.While this study is ABNORMAL, NO EVIDENCE OF A "DOUBLE/TRIPLE HIT LYMPHOMA"was identified. The high risk "double/triple-hit lymphomas" are characterized by a MYC translocationconcomitant with a BCL6 and/or BCL2 translocation. Please correlate with clinical and otherpathological data. PLEASE SEE ORIGINAL REFERENCE LAB REPORT FOR DETAILS Addendum Signed SIGNATURE ON FILE GarciaHenrietta 10/21/22 1125 ----- CLINICAL COMMUNICATIONS Dr. Shimon Garcia discussed the case with Dr. Regi Vera on 10/14/22 at 0935. CLINICAL HISTORY SAME FINAL DIAGNOSIS Adrenal mass, left , core biopsy: Large B-cell lymphoma, germinal center type . (Seemicroscopic description) GROSS DESCRIPTION Received in formalin labeled "left adrenal mass" are 4 bliss-white core biopsies, up to 1.8cm in maximum dimension, entirely submitted (A)-(B). Technical component performed at [address], [place] [address] Unless gross only, the diagnosis is based upon microscopic examination.Immunohistochemis try: This test was developed and its performance characteristicsdetermined by this laboratory. It has not been approved nor does it need approvalby the [place] FDA. Appropriate positive and negative controls are reviewed and judgedto be acceptable. This laboratory is certified under the Clinical Laboratory ImprovementAmendments (CLIA-88) as qualified to perform high complexity clinical laboratory testing. CONTINUED ON NEXT PAGE -----RUN DATE: 10/21/22 [facility] - LAB PAGE 3 RUN TIME: 1125 Specimen Inquiry RUN USER: INTERFACE -----SPEC #: [id number] PATIENT: NATALYA KAPLAN #[id number] (Continued) MICROSCOPIC DESCRIPTION The core biopsy shows poorly differentiated neoplastic cells with foamy cytoplasm, markednuclear pleomorphism, brisk mitotic activity. Microscopic examination of morphology of H E stain leads to differential diagnosisrequiring further work up. Immunohistochemical stains have been performed with appropriatecontrols on block (A), which show that the poorly differentiated tumor cells are positivefor CD10, patchy positive for GATA3; negative for pankeratin, S100, Poteet-1, synoptophysin,chromogranin, calretinin; heterogeneous positivity of p53. Additional immunohistochemical stains have been performed with appropriate controls onblock (B) at [facility] and interpreted by Dr. Shimon Garcia, which show that the neoplasticcells are diffusely positive for CD20, PAX5; focally positive for c-Myc, BCL6, Mum 1,cyclin D1; negative for CAM 5.2, inhibin, PAX8, SF-1, CD30; the small infiltrating Tcells are highlighted by Bcl-2, CD3, CD5. The morphology and immunoprofile are consistentwith large B-cell lymphoma, germinal center type. FISH translocation studies will beperformed and interpreted at [facility], and his result will be reported as addendum. Immunohistochemical stains are laboratory developed tests, not cleared with FDA. CLINICAL INFORMATION ADRENAL MASS --------- Signed ___ GarciaBrendonangeli 10/14/22 1006 ----- END OF REPORT - CT GUID NDL PLCMT (Biopsy/Asp)2022-10-06 00:00:00 [facility]AP[facility]AN : 1945 Sex: F Name: NATALYA KAPLAN : 1945 Age/S: 77 / F [address] [place] [address] Unit #: [id number] Loc: [place] [address] Phys: Abhishek Garcia MD Acct: [id number] Dis Date: Status: REG SDC PHONE #: [phone] Exam Date: 10/06/2022 1129 FAX #: [phone] Reason: COLON CANCER, ADRENAL MASS EXAMS: CPT CODE: [id number] CT GUID NDL [facility] (Biopsy/Asp) 06307 PROCEDURE INFORMATION: Exam: IR Biopsy, abdominal or retroperitoneal mass, percutaneous needle Exam date and time: 10/06/2022 10:55AM Age: 77 years old Clinical indication: Condition or disease; Cancer; Intestine, large; Additionalinfo: Colon cancer, adrenal mass. Versed 1. Fent 50mcg. Sed. Time 12 min TECHNIQUE: Imaging protocol: Biopsy, abdominal or retroperitoneal mass, percutaneous needle. CT guidance was provided. Radiationoptimization: All CT scans at this facility use at least one of these dose optimization techniques: automated exposure control; mA and/or kV adjustment per patient size (includes targeted exams where dose is matched to clinical indication); or iterative reconstruction. Guidance contrast: CT contrast route: Intra-venous; COMPARISON: CT ABD PELVIS W/CONT 09/16/2022 12:53 PM RADIATION DOSE METRICS: TotalDLP (mGy-cm): 306 FINDINGS: Advanced practice providers: Binh Beverly MD CONSENT AND SEDATION INFO:Consent: The risks, benefits and alternatives of the procedure were discussed prior to the procedure. Informed consent was obtained. Time out: Timeout was performed prior to the procedure. Level of sedation: I administered moderate sedation throughout this procedure. The patient was monitored and observed by a hospital nurse, an independent trained observer. The nurse pushed medications at my direction and monitored the patient's level of consciousness and physiological status throughout. Moderate sedation record is permanently stored in the hospital information system. Medications for sedation: 1 mg of IV Versed and 50 mcg of IV Fentanyl. Total intra-service sedation time (minutes): The personal supervised moderate sedation time was 12 minutes. Sterile technique: All elements of maximal sterile barrier technique were followed which include cap, mask, sterile gown, sterile gloves, sterile full-body drape, hand hygiene, 2% chlorhexidine for cutaneous antisepsis (skin prep), sterile ultrasound gel, and sterile probe cover. Procedure summary: PAGE 1 Signed Report (CONTINUED) Name: NATALYA KAPLAN [facility] Bailey : 1945 Age/S: 77 / F [address] [place] [address] Unit #: [id number] Loc: [place] [address] Phys: Abhishek Garcia MD Acct: [id number] Dis Date: Status: REG [facility] PHONE #: [phone] Exam Date: 10/06/2022 112 FAX #: [phone] Reason: COLON CANCER, ADRENAL MASS EXAMS: CPT CODE: [id number] CT GUID NDL [facility] (Biopsy/Asp) 79125 (Continued) The patient was brought to the CT procedure room and was placed prone on the table. Initial CT images were obtained and an access site was marked. The patient's back was prepped and draped in a standard sterile fashion. 1% lidocaine was injected to locally anesthetize the skin and underlying tissues. Under CT guidance, a 17 gauge coaxial biopsy system was advanced into the left adrenal mass. 4 x 18 gauge cores were obtained. Gelfoam pledgets were injected and the needle was removed. A final set of images were obtained. A dressing wasapplied. Procedural imaging: Multiple CT images demonstrating different steps of the procedure. Compl ications: No immediate complications. IMPRESSION: Status post CT-guided left adrenal mass biopsy as detailed. at 1304 Reported and signed by: Roel Beverly M.D. CC: Abhishek Garcia MD; [facility] Lissette Technologist:Adrian Best, RT(R)(CT) CTDI: DLP: Trnscb Date/Time: 10/06/2022 (1184) [email or web address] Orig Print D/T: S: 10/06/2022 (5753) PAGE 2 Signed ReportPROTHROMBIN [id number] 15:02:00 Test Item Value Reference Range Interpretation Comments PROTHROMBIN TIME 13.5 SECONDS 9.3-12.9 H PATIENT (test code = PTP) INTERNATIONAL NORMAL 1.2 0.8-1.2 N TARGET INR BY RATIO (test code = INDICATIO N Indication INR) INR1. Prophylax is of venous thrombos is 2.0 - 3.0 (orthoped ic surgery), Proph ylaxis of venous throm bosis (other than hig h-risk surgery), Treat ment of Deep Vein Thrombosis/Pulm onary Embolism, Preve ntion of systemic emb olism - Tissue heart va lves, Acute Myocardia l Infarction (to prevent systemic emboli sm), Valvular heart disease, Atrial Fibrillation, Bileaflet mecha nical valve in aortic position.2. Mec hanical prosthetic valv es (high risk), 2. 5 - 3.5 Presence of Lup us Anticoagulant o r Antiphospholipi d Antibodies, Pre vention of systemic emb olism - Acute Myocardia l Infarction (to prevent recurrent infar ct). CBC W/AUTO [id number] 14:56:00 Test Item Value Reference Range Interpretation Comments WHITE BLOOD CELL (test code = 6.4 x10 3/uL 4.5-11.0 N WBC) RED BLOOD CELL (test code = 3.87 x10 6/uL 3.54-5.02 N RBC) HEMOGLOBIN (test code = HGB) 11.4 g/dL 11.0-15.0 N HEMATOCRIT (test code = HCT) 35.1 % 33.0-45.0 N MEAN CELL VOLUME (test code = 90.7 fL 81.0-99.0 N MCV) MEAN CELL HGB (test code = MCH) 29.5 pg 27.0-33.0 N MEAN CELL HGB CONCETRATION 32.5 g/dL 33.0-37.0 L (test code = MCHC) RED CELL DISTRIBUTION WIDTH CV 13.7 % 11.5-14.5 N (test code = RDW) RED CELL DISTRIBUTION WIDTH SD 45.1 fL 37.0-54.0 N (test code = RDW-SD) PLATELET COUNT (test code = 332 x10 3/uL 150-400 N PLT) MEAN PLATELET VOLUME (test code 8.5 fL 7.0-9.0 N = MPV) NEUTROPHIL % (test code = NT%) 65.4 % 56.0-77.0 N IMMATURE GRANULOCYTE % (test 0.3 % 0.0-2.0 N code = IG%) LYMPHOCYTE % (test code = LY%) 23.2 % 14.0-32.0 N MONOCYTE % (test code = MO%) 7.8 % 4.8-9.0 N EOSINOPHIL % (test code = EO%) 2.8 % 0.3-3.7 N BASOPHIL % (test code = BA%) 0.5 % 0.0-2.0 N NUCLEATED RBC % (test code = 0.0 % 0-0 N NRBC%) NEUTROPHIL # (test code = NT#) 4.20 x10 3/uL 2.0-7.6 N IMMATURE GRANULOCYTE # (test 0.02 x10 3/uL 0.00-0.03 N code = IG#) LYMPHOCYTE # (test code = LY#) 1.49 x10 3/uL 1.0-3.8 N MONOCYTE # (test code = MO#) 0.50 x10 3/uL 0.1-0.8 N EOSINOPHIL # (test code = EO#) 0.18 x10 3/uL 0.0-0.2 N BASOPHIL # (test code = BA#) 0.03 x10 3/uL 0.0-0.2 N NUCLEATED RBC # (test code = 0.00 x10 3/uL 0.0-0.1 N NRBC#) MANUAL DIFF REQUIRED (test code NO = MDIFF) PROTHROMBIN [id number] 15:16:00 Test Item Value Reference Range Interpretation Comments PROTHROMBIN TIME 12.5 SECONDS 9.3-12.9 N PATIENT (test code = PTP) INTERNATIONAL NORMAL 1.1 0.8-1.2 N TARGET INR BY RATIO (test code = INDICATIO N Indication INR) INR1. Prophylax is of venous thrombos is 2.0 - 3.0 (orthoped ic surgery), Proph ylaxis of venous throm bosis (other than hig h-risk surgery), Treat ment of Deep Vein Thrombosis/Pulm onary Embolism, Preve ntion of systemic emb olism - Tissue heart va lves, Acute Myocardia l Infarction (to prevent systemic emboli sm), Valvular heart disease, Atrial Fibrillation, Bileaflet mecha nical valve in aortic position.2. Mec hanical prosthetic valv es (high risk), 2. 5 - 3.5 Presence of Lup us Anticoagulant o r Antiphospholipi d Antibodies, Pre vention of systemic emb olism - Acute Myocardia l Infarction (to prevent recurrent infar ct). THROMBOPLASTIN TIME [id number] 15:16:00 Test Item Value Reference Range Interpretation Comments THROMBOPLASTIN TIME 31.2 Seconds 25.0-39.5 N Therape utic Range: PARTIAL (test code = 50.4 - 88.3 Seconds PTT) Effective 02/28/2019 COMPREHENSIVE METABOLIC [id number] 15:11:00 Test Item Value Reference Range Interpretation Comments SODIUM (test code = NA) 137 mEq/L 134-147 N POTASSIUM (test code = 4.1 mEq/L 3.4-5.0 N K) CHLORIDE (test code = 99 mEq/L 100-108 L CL) CARBON DIOXIDE (test 30 mEq/l 21-33 N code = CO2) ANION GAP (test code = 11 0-20 N GAP) GLUCOSE (test code = 84 mg/dL 70-110 N GLU) BLOOD UREA NITROGEN 11 mg/dL 7-18 N (test code = BUN) GLOMERULAR FILTRATION 81.6 70-80 H Units of measure = RATE (test code = GFR) ml/mi n/1.73 m2 CREATININE (test code = 0.7 mg/dL 0.6-1.3 N CREAT) TOTAL PROTEIN (test 7.7 g/dL 6.4-8.2 N code = PROT) ALBUMIN (test code = 3.90 g/dL 3.4-5.0 N ALB) CALCIUM (test code = 10.5 mg/dL 8.0-10.5 N CA) BILIRUBIN TOTAL (test 0.30 mg/dL 0.0-1.0 N code = BILT) SGOT/AST (test code = 28 IUnit/L 15-37 N AST) SGPT/ALT (test code = 23 IUnit/L 30-65 L ALT) ALKALINE PHOSPHATASE 138 IUnit/L 20-125 H TOTAL (test code = ALKP) URINALYSIS [id number] 15:09:00 Test Item Value Reference Range Interpretation Comments UA COLOR (test code = COLU) YELLOW YEL/STRAW UA APPEARANCE (test code = CLEAR CLEAR APPU) UA GLUCOSE DIPSTICK (test code NEGATIVE NEGATIVE = DGLUU) UA BILIRUBIN DIPSTICK (test NEGATIVE NEGATIVE code = BILU) UA KETONE DIPSTICK (test code NEGATIVE NEGATIVE = KETU) UA SPECIFIC GRAVITY (test code 1.008 1.005-1.030 N = SGU) UA BLOOD DIPSTICK (test code = NEGATIVE NEGATIVE RIAZ) UA PH DIPSTICK (test code = 7.0 5.0-7.0 N JOSE G) UA PROTEIN DIPSTICK (test code NEGATIVE NEGATIVE = PROU) UA UROBILINIOGEN DIPSTICK 0.2 mg/dL 0.2-1.0 (test code = URO) UA NITRITE DIPSTICK (test code NEGATIVE NEGATIVE = SIOBHAN) UA LEUKOCYTE ESTERASE DIPSTICK 2+ NEGATIVE A (test code = LEUU) UA RBC (test code = RBCU) 0-3 RBC/HPF 0-3 UA WBC NO REFLEX (test code = 0-3 WBC/HPF 0-3 WBCUCL) UA BACTERIA (test code = BACU) NONE SEEN /HPF NONE SEEN UA SQUAMOUS CELLS (test code = 0-5 /HPF NONE SEEN SQU) CBC W/AUTO [id number] 14:59:00 Test Item Value Reference Range Interpretation Comments WHITE BLOOD CELL (test code = 7.3 x10 3/uL 4.5-11.0 N WBC) RED BLOOD CELL (test code = 3.73 x10 6/uL 3.54-5.02 N RBC) HEMOGLOBIN (test code = HGB) 11.0 g/dL 11.0-15.0 N HEMATOCRIT (test code = HCT) 34.0 % 33.0-45.0 N MEAN CELL VOLUME (test code = 91.2 fL 81.0-99.0 N MCV) MEAN CELL HGB (test code = MCH) 29.5 pg 27.0-33.0 N MEAN CELL HGB CONCETRATION 32.4 g/dL 33.0-37.0 L (test code = MCHC) RED CELL DISTRIBUTION WIDTH CV 13.9 % 11.5-14.5 N (test code = RDW) RED CELL DISTRIBUTION WIDTH SD 46.7 fL 37.0-54.0 N (test code = RDW-SD) PLATELET COUNT (test code = 331 x10 3/uL 150-400 N PLT) MEAN PLATELET VOLUME (test code 8.8 fL 7.0-9.0 N = MPV) NEUTROPHIL % (test code = NT%) 60.9 % 56.0-77.0 N IMMATURE GRANULOCYTE % (test 0.3 % 0.0-2.0 N code = IG%) LYMPHOCYTE % (test code = LY%) 25.1 % 14.0-32.0 N MONOCYTE % (test code = MO%) 10.7 % 4.8-9.0 H EOSINOPHIL % (test code = EO%) 2.6 % 0.3-3.7 N BASOPHIL % (test code = BA%) 0.4 % 0.0-2.0 N NUCLEATED RBC % (test code = 0.0 % 0-0 N NRBC%) NEUTROPHIL # (test code = NT#) 4.42 x10 3/uL 2.0-7.6 N IMMATURE GRANULOCYTE # (test 0.02 x10 3/uL 0.00-0.03 N code = IG#) LYMPHOCYTE # (test code = LY#) 1.82 x10 3/uL 1.0-3.8 N MONOCYTE # (test code = MO#) 0.78 x10 3/uL 0.1-0.8 N EOSINOPHIL # (test code = EO#) 0.19 x10 3/uL 0.0-0.2 N BASOPHIL # (test code = BA#) 0.03 x10 3/uL 0.0-0.2 N NUCLEATED RBC # (test code = 0.00 x10 3/uL 0.0-0.1 N NRBC#) MANUAL DIFF REQUIRED (test code NO = MDIFF) - CT ABD PELVIS [id number] 00:00:00 [facility]: NATALYA KAPLAN : 1945 Sex: F Name: NATALYA KAPLAN [facility] Dagoberto Anderson : 1945 Age/S: 76 / F [address] [place] [address] Unit #: [id number] Loc: [place] [address] Phys: Rashawn Schaefer MD Acct: [id number] Dis Date: Status: DEP CLI PHONE #: [phone] Exam Date: 09/16/2022 1250 FAX #: [phone] Reason: 227.0, 035.00, ADRENAL MASS. EXAMS: CPT CODE: [id number] CT ABD PELVIS W/CONT 38663 PROCEDURE INFORMATION: Exam: CT Abdomen And Pelvis With Contrast Exam date and time: 09/16/2022 12:53 PM Age: 76 years old Clinical indication: Other: Adrenal mass. ; Additional info: 227.0, 035.00, adrenal mass. TECHNIQUE: Imaging protocol: Computed tomography of the abdomen and pelvis with contrast. Radiation optimization: All CT scans at this facility use at least one of these dose optimization techniques: automated exposure control; mA and/or kV adjustment per patient size (includes targeted exams where dose is matched to clinical indication); or iterative reconstruction. Contrast material: ISOVUE-300; Contrast volume: 100 ml; Contrast route: INTRAVENOUS (IV); COMPARISON: CT ABDOMEN W/CONTRAST, CT ABDOMEN W/CONTRAST 08/06/2022 12:02 PM FINDINGS: Lungs: Visualized lung bases are clear. Liver: Normal. No mass. Gallbladder and bileducts: Gallbladder surgically absent. Pancreas: Normal. No ductal dilation. Spleen: Normal. No splenomegaly. Adrenal glands: Growth in known left adrenal mass, now measuring 9.2 x 8 cm from the prior 8.2 x 6.8 cm since 08/06/2022. Right adrenal gland is normal. Kidneys and ureters: Normal. No hydroureteronephrosis. Stomach and bowel: Right ileocolic surgical anastomosis again noted. Mild sigmoid colonic diverticulosis. Appendix: No evidence of appendicitis. Intraperitoneal space: Unremarkable. No free air. No significant fluid collection. Vasculature: Aortoiliac arterial system is normal. Celiac axis, SMA, and LOIS are patent. No abdominal aortic aneurysm. Lymph nodes: Unremarkable. No enlarged lymph nodes. Urinary bladder: Mild focal central bladder prolapse, likely chronic. Reproductive: Unremarkable as visualized. Bones/joints: L5/S1 degenerative disc disease. Mid to lower lumbosacral spinebilateral posterior facet joint arthropathy. Minimal grade 1 degenerative L4 over L5 anterolisthesis. Soft tissues: Slightly progressed loss of fat plane adjacent with the splenic hilar vessels, spleen, posterior gastric fundus, pancreatic tail and left renal superior pole. PAGE 1 Signed Report (CONTINUED) Name: NATALYA KAPLAN [facility] : 1945 Age/S: 76 / F [address] [place] [address] Blvd Unit #: [id number] Loc: [place] [address] Phys: Rashawn Schaefer MD Acct: [id number] Dis Date: Status: DEP CLI PHONE #: [phone] Exam Date: 09/16/2022 1250 FAX #: [phone] Reason: 227.0, 035.00, ADRENAL MASS. EXAMS: CPT CODE: [id number] CT ABD PELVIS W/CONT 25308 (Continued) Other findings: Inferomedial splenic small wedge-shaped focus of hypoattenuation has developed in the interim. IMPRESSION: 1. Growth in known left adrenal mass, now transversely measuring 9.2 x 8 cm from the prior 8.2 x 6 .8 cm since 08/06/2022. 2. Slightly progressed loss of fat plane adjacent with the splenic hilar vessels, spleen, posterior gastric fundus, pancreatic tail and left renal superior pole. 3. Interval development of inferomedial splenic possible wedge-shaped infarction or region of perfusional changes. 4. Mild sigmoid colonic diverticulosis. 5. Mild focal central bladder prolapse, likely chronic. at 1409 Reported and signed by: Cristobal Lozano M.D. CC: Rashawn Schaefer MD; [facility] Technologist:Peterson Nath, RT(R)(CT) CTDI: DLP: Trnscb Date/Time: 09/17/2022 (1409) [email or web address] Orig Print D/T: S: 09/17/2022 (1410) PAGE 2 Signed Report- CT ABDOMEN W/[id number] 00:00:00 [facility] DAGOBERTO ANDERSONName: NATALYA KAPLAN : 1945 Sex: F Name: NATALYA KAPLAN [facility] Dagoberto Anderson : 1945 Age/S: 76 / F [address] [place] [address] Unit #: [id number] Loc: [place] [address] Phys: Javier Bran MD Acct: [id number] Dis Date: Status: DEP CLI PHONE #: [phone] Exam Date: 08/06/2022 1203 FAX #: [phone] Reason: E27.9, DISORDER OF ADRENAL GLAND,UNSPECIFIED. EXAMS: CPT CODE: [id number] CT ABDOMEN W/CONTRAST 15301 PROCEDURE INFORMATION: Exam: CT Abdomen With Contrast Exam date and time: 08/06/2022 12:02 PM Age: 76 years old Clinical indication: Condition or disease; Other: E27.9, disorder of adrenal gland, unspecified. TECHNIQUE: Imaging protocol: Computed tomography of the abdomen with contrast. Radiation optimization: All CT scans at this facility use at least one of these dose optimization techniques: automated exposure control; mA and/or kV adjustment per patient size (includes targeted exams where dose is matched to clinical in dication); or iterative reconstruction. Contrast material: ISO; Contrast volume: 100 ml; Contrast route: INTRAVENOUS (IV); COMPARISON: No relevant prior studies available. FINDINGS: Liver: Normal. No mass. Gallbladder and bile ducts: Cholecystectomy surgical clips. Pancreas: Normal. No ductal dilation. Spleen: Normal. No splenomegaly. Adrenal glands: The right adrenal gland appears normal. Heterogenous lobulated irregular mass in the left adrenal gland measures 8.7 x 8.0 x 7.6 cm (craniocaudad by APby transverse) there is local mass effect on the splenic artery and left kidney without invasion. Kidneys and ureters: No hydronephrosis or renal stones. Stomach and bowel: Mild stool in the visualized colon. No bowel dilatation. Appendix: Suture line near the cecum may represent previous appendectomy. The appendix is not identified. No secondary signs of appendicitis. Intraperitoneal space: Unremarkable. No free air. No significant fluid collection. Vasculature: Moderate aortic calcifications. No aneurysmal dilatation. Lymph nodes: 7 mm lymph node near the greater curvature seen on series 3, image 37 is noted. Multiple left retroperitoneal lymph nodes are seen superiorly, largest 9 mm on series 3 image 47. Bones/joints: Mild degenerative changes at L2-L3 and L5-S1. Grade 1 anterolisthesis at L4-L5. Soft tissues: Unremarkable. IMPRESSION: 1. 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 EXAMS: CPT CODE: [id number] CT ABDOMEN W/CONTRAST 67856 (Continued) carcinoma, pheochromocytoma, or paraganglioma. 2. Increased number of subcentimeter lymph nodes along greater curvature of stomach and in superior left retroperitoneum. Metastatic disease not excluded. t 824 Reported and signed by: Edwin Peterson M.D. CC: Javier Bran MD; [facility] [place] Technologist:Peterson Nath, RT(R)(CT) CTDI: DLP: Trnscb Date/Time: 08/07/2022 (824) [email or web address] Orig Print D/T: S: 08/07/2022 (08) PAGE 2 Signed Report- CT CHEST W/[id number] 12:36:00 [facility] : 1945 Sex: F Name: NATALYA KAPLAN [facility] : 1945 Age/S: 76 / F [address] Unit #: [id number] Loc: [place] [address] Phys: [place]ette Azevedo MD Acct: [id number] Dis Date: Status: REG CLI PHONE #:[phone] Exam Date: 06/26/2022 1158 FAX #: Reason: NEOPLASM UNCERTAIN BEHAVIOR EXAMS: CPT: [id number] CHEST W/CONTRAST 22345 EXAMINATION: - CT CHEST W/CONTRAST. LOCATION: B2. HISTORY: NEOPLASM UNCERTAIN BEHAVIOR. COMPARISON: None. TECHNIQUE: CT chest was performed with the use of IV contrast. Sagittal and coronal reconstructed images were available for review. This exam was performed accordingto our departmental dose-optimization program, which includes automated exposure control, adjustmentof the mA and/or kV according to patient size, and/or use of iterative reconstruction technique. FINDINGS: Moderate centrilobular and paraseptal emphysema is present. 6 mm right lower lobe nodule (axial image 51) and couple 4 mm subpleural left upper lobe nodules (axial images 14 and 15) are present. Biapical lung scarring is noted. There is no axillary, mediastinal, or hilar adenopathy. The heart isnormal in size. Coronary artery calcifications are present. There is no pericardial effusion. The thyroid gland appears normal. Limited examination of the upper abdomen demonstrates 6.9 x 6.2 cm left adrenal gland mass with encasement of the splenic artery. There is also loss of fat plane between the mass and posterior stomach. Cholecystectomy clips are present. Moderate degenerative changes are seenin the spine. No acute osseous abnormality is identified. No aggressive lytic or blastic lesions areseen. IMPRESSION: Several lung nodules measuring up to 6 mm in the right lower lobe. According to 2017 Fleischner Society guidelines, recommend follow-up CT chest in 3-6 months. Moderate pulmonary emphysema. 6.9 cm left adrenal gland mass with encasement of the splenic artery PAGE 1 Signed Report (CONTINUED) Name: NATALYA KAPLAN : 1945 Age/S: 76 / F [address] Unit #:[id number] Loc: [place] [address] Phys: [place]ette Azevedo MD Acct: [id number] Dis Date: Status: REG CLI PHONE #: [phone] Exam Date: 06/26/2022 1150 FAX #: Reason: NEOPLASM UNCERTAIN BEHAVIOR EXAMS:CPT: [id number] CT CHEST W/CONTRAST 45895 <Continued> highly suspicious for neoplasm. There isalso loss of fat plane between the mass and posterior stomach, which may represent gastric involvement. Recommend dedicated CT adrenal mass protocol for further evaluation. "Guidelines for Management of Incidental Pulmonary Nodules Detected on CT Images: From the Fleischner Society 2017." Radiology 2017; 284(1):228-243. Low Risk (Minimal or absent history of smoking and other known risk factors) <6 mm: No follow-up needed. 6-8 mm: CT at 6-12 months, then consider CT at 18-24 months. If multiple nodules, recommend CT at 3-6 months, then consider CT at 18-24 months. > 8 mm: CT at 3 months, PET/CT, or tissue sampling. If multiple nodules, recommend CT at 3-6 months, then consider CT at 18-24 months. High Risk (History of smoking or of other known risk factor) < 6 mm: Optional CT at 12 months. 6-8 mm: CT at 6-12 months, then CT at 18-24 months. If multiple nodules, recommend CT at 3-6 months, then at 18-24 months. > 8 mm: If single nodule, recommend CT at 3 months, PET/CT, or tissue hortensia pling. If multiple nodules, recommend CT at 3-6 months, then at 18-24 months. at 1236 Reported and signed by: Angie Nunn M.D. CC: Carrie STOUT Technologist:Sergei Pritchard, RT,(R),(CT) CTDI: DLP: Trnscb Date/Time: 06/26/2022 (9556) [email or web address] Orig Print D/T: S: 06/26/2022 (6756) PAGE 2 Signed Report- MRI PELVIS W W/O [id number] 12:20:00[facility] EU[facility] NATALYA A : 1945 Sex: F FAX: [place] Morales MD [phone] Camps: St: REG Name: NATALYA KAPLAN [facility] : 1945 Age/S: 76/F [address] Unit #: [id number] Loc: [place] [address] Phys: [place] Azevedo MD Acct: [id number] Dis Date: Status: REG CLI PHONE #: [phone] Exam Date: 06/26/2022 112 FAX #: Reason: COLON CA EXAMS: CPT: [id number] MRI PELVIS W W/O CONT 66859 EXAM: - MRI PELVIS W W/O CONT INDICATION: COLON CA TECHNIQUE: Multiplanar, multisequence MRI of the pelvis was performed with and without intravenous contrast. Location:T18 FINDINGS: Uterus: Appears to be absent. Ovaries: Appear atrophic. No mass or cystseen. Bladder: Appears to be mildly distended. Peritoneum: No free fluid seen in the pelvis. Bowel: No dilated bowel loops noted. Lymphatics: No enlarged lymph nodes seen. Bones: No acute or destructive osseous process seen. IMPRESSION: No enlarged lymph nodes, or any other evidence of metastatic disease noted in the pelvis. at 1220 Reported and signed by: Francisco Gilliam M.D. CC: [place] Azevedo MD Technologist: Lorelei Hogan, RT(R)(MR) Transcribed Date/Time/By: 06/26/2022 (1220) :[email or web address] Orig Print D/T: S: 06/26/2022 (3645) PAGE 1 Signed Report- MRI ABDOMEN W WO [id number] 11:49:00[facility] [place]: NATALYA KAPLAN : 1945 Sex: F FAX: [place]ette Morales MD [phone] Camps: PM St: REG Name: NATALYA KAPLAN : 1945 Age/S: 76/F [address] Unit #: [id number] Loc: [place] [address] Phys: [place] Azevedo MD Acct: [id number] Date: Status: REG CLI PHONE #: [phone] Exam Date: 06/26/2022 1101 FAX #: Reason: DIFFUSE NON HODGKIN LYMPHOMA CELL EXAMS: CPT: [id number] MRI ABDOMEN W WO CONT 10664 Indication: 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 TECHNIQUE: Axial and coronal T2-weighted images, T1 in and out of phase axial and coronal images, precontrast fat-suppressed T1-weighted axial and coronal images of the upper abdomen were obtained. Diffusion weighted sequences are also obtained. Following administration of 12 mL of dotarem, fat-suppressed T1-weighted images were obtained at 30 seconds, 70 seconds, 2 minutes and 5 minutes per protocol. COMPARISON: None available Location: T 18 FINDINGS: There is a 6.3 x 6.4 x 6.2 cm heterogeneous intensity enhancing soft tissue mass lesion in theexpected location of the left adrenal. The mass lesion abuts the posterior aspect of the stomach in the medial aspect of the spleen. The fat planes between the upper pole of the left kidney and the mass lesion are completely effaced. The right adrenal gland is unremarkable. The liver, spleen, pancreas, gallbladder, and kidneys are normal. There is a tiny sub-CM cyst arising from the mid to lower poleof the left kidney. No suspicious enhancement is found following intravenous administration. The visualized loops of bowel are unremarkable. The common bile duct is normal measuring 8.5 mm. No intrahepatic biliary distention is identified. No gross intraductal filling defect is visible. The visualized pancreatic duct is normal. There is no retroperitoneal mass or lymphadenopathy. The aorta, IVC, and portal veins appear of normal caliber and show normal flow- voids and opacification with gadolinium. The celiac, SMA, renal and iliac arteries appear widely patent. The visualized paraspinous soft tissues and the spinal canal appears be widely patent. The visualized spinal cord appears to be normal. IMPRESSION: 1. There is a complex heterogeneously enhancing 6.3 x 6.4 x 6.2 cm PAGE 1 Signed Report (CONTINUED) FAX: [place] Morales MD [phone] Camps: PM St: REG Name[facility] [place] 1945 Age/S: 76/F [address] Unit #: [id number] Loc: [place] [address] Phys: [place] Azevedo MD Acct: [id number] Dis Date: Status: REG CLI PHONE #: [phone] Exam Date: 06/26/2022 1107 FAX #: Reason: DIFFUSE NON HODGKIN LYMPHOMA CELL EXAMS: CPT: [id number] MRI ABDOMEN W WO CONT 95729 <Continued> soft tissue mass lesion at the expected location of the left adrenal gland. The fat planes between the mass lesion in the upper pole of the left kidney are effaced. Findings are most consistent withneoplastic/metastatic disease. at 1149 Reported and signed by: Jef Garcia M.D. CC: [place] Azevedo MD Technologist: RT Jazlyn(R)(MR) Transcribed Date/Time/By: 06/26/2022 (4473) :[email or web address] Orig Print D/T: S: 06/26/2022 (7158) PAGE 2 Signed Report BLOOD UREA [id number] 10:36:00 Test Item Value Reference Range Interpretation Comments BLOOD UREA NITROGEN (test code = 11 MG/DL 7-18 N BUN) CREATININE W ESTIMATED [id number] 10:36:00 Test Item Value Reference Range Interpretation Comments GLOMERULAR FILTRATION >=60 max estimate >60 RATE (test code = GFR) estGFR CREATININE (test code = 0.8 MG/DL 0.6-1.0 Kinza ABDI) [id number] 13:03:00 Test Item Value Reference Range Interpretation Comments SURGICAL (test code = SR) -----RUN DATE: 05/13/22 [email or web address] PAGE 1 RUN TIME: 1303 Specimen Inquiry RUN USER: INTERFACE -----PATIENT: NATALYA KAPLAN LOC: JulianWS U #: [id number] AGE/SX: 76/F [place] [facility] [place]04[place]30[place]DEUCE DR: Wilner Booth : [birth year] BED: 1 DIS: 05/02/22 STATUS: DIS IN TLOC: ----- SPEC #: [id number] RECD: 05/04/22-1400 STATUS: CHRISTY GILL #: [id number] KENNEDI: 04/30/22- SUBM DR: Wilner Booth MD ENTERED: 05/04/22-1401 SP TYPE: SURGICAL OTHR DR: Undefined Provider ORDERED: 82763, ANATOMIC SPEC COPIES TO: Undefined Provider Wilner Booth MD [address] [place] [address] [address] [place] [address] [email or web address] PROCEDURES: [id number] (05/13/22-1255) TISSUES: A. COLON NOS - RIGHT CAP CANCER SUMMARY *Specimen: Right colon.*Procedure: Excision.Length: 13.4 cm.*Tumor site: Cecum.Tumor is located: above peritoneal reflection.*Tumor Size: Greatest dimension: 1.6 cm.*Macroscopic Tumor Perforation: Not identified.*Histologic Type: Adenocarcinoma. *Histologic Grade: Low (well/moderate)*Microscopic Tumor Extension: Muscularis propria.*Margins: Proximal Margin: Free of tumor (more than 5 cm).. Distal margin: Free of tumor (more than 5 cm). Circumferential margin: Free of tumor (4.2 cm).*Treatment Effect: N/A*Lymph-Vascular Invasion: Identified.*Perineural Invasion: Not identified.*Tumor Deposits: Not identified.Type of Polyp in Which Invasive Carcinoma Arose: N/ANumber of Lymph Nodes Examined: 34Number of Lymph Nodes Involved: 0.*Pathologic Staging (pTNM): [id number] block(s): D-G. MLH1, MSH2, MSH6 and PMS2 all show intact nuclear expression by immunohistochemistry. There is no evidence of mismatch repair deficiency in this specimen. Please see outsidereport for complete details. CONTINUED ON NEXT PAGE -----RUN DATE: 05/13/22 [facility] - [facility] PAGE 2 RUN TIME: 1303 Specimen Inquiry RUN USER: INTERFACE -----SPEC #: [id number] PATIENT: NATALYA KAPLAN #[id number] (Continued) CLINICAL HISTORY SAME FINAL DIAGNOSIS Right colon, colectomy: Invasive moderately differentiated adenocarcinoma, 1.6 cm, withsuperficial invasion of muscularis propria; lymphovascular invasion identified; subserosalfat, free of tumor; resection margins free of tumor; appendix, free of tumor; No evidenceof metastatic carcinoma identified in 34 lymph nodes (0/34). GROSS DESCRIPTION Received is a 1 segment of partially opened large intestine measuring 13.4 cm in length andup to 5.9 cm in diameter with attached segment of small intestine measuring 5.4 cm inlength and up to 1.5 cm in diameter and with attached appendix measuring 4.6 cm in lengthand up to 0.5 cm in diameter. The cecum shows suture to remington of focal irregular areameasuring 1.6 cm in largest dimension. This area is 10.3 cm from the colonic margin andmore than 5 cm from the small intestinal margin. The mesenteric margin measures4.2 cm. Sections are submitted as [id number] margins; C-appendix; D-H-the entire suturedarea and surrounding tissue. The pericolic fat is submitted for lymph node clearing. Technical component performed at [address], [place] [address] Unless gross only, the diagnosis is based upon microscopic examination.Immunohistochemis try: This test was developed and its performance characteristicsdetermined by this laboratory. It has not been approved nor does it need approvalby the [place] FDA. Appropriate positive and negative controls are reviewed and judgedto be acceptable. This laboratory is certified under the Clinical Laboratory ImprovementAmendments (CLIA-88) as qualified to perform high complexity clinical laboratory testing. CLINICAL INFORMATION IEOCECAL MASS --------- Signed SIGNATURE ON FILE Placido Garcia MD 05/13/22 4283 ----- END OF REPORT BASIC METABOLIC [id number] 08:42:00 Test Item Value Reference Range Interpretation Comments SODIUM (test code = NA) 140 mEq/L 134-147 POTASSIUM (test code = 4.0 mEq/L 3.4-5.0 N K) CHLORIDE (test code = 105 mEq/L 100-108 N CL) CARBON DIOXIDE (test 30 mEq/l 21-33 N code = CO2) ANION GAP (test code = 9 0-20 N GAP) GLUCOSE (test code = 96 mg/dL 70-110 N GLU) BLOOD UREA NITROGEN < 5 mg/dL 7-18 L (test code = BUN) GLOMERULAR FILTRATION 120.3 70-80 H Units of measure = RATE (test code = GFR) ml/mi n/1.73 m2 CREATININE (test code = 0.5 mg/dL 0.6-1.3 L CREAT) CALCIUM (test code = 9.0 mg/dL 8.0-10.5 N CA) BASIC METABOLIC [id number] 04:39:00 Test Item Value Reference Range Interpretation Comments SODIUM (test code = NA) 130 mEq/L 134-147 L POTASSIUM (test code = 3.9 mEq/L 3.4-5.0 K) CHLORIDE (test code = 100 mEq/L 100-108 N CL) CARBON DIOXIDE (test 25 mEq/l 21-33 N code = CO2) ANION GAP (test code = 9 0-20 N GAP) GLUCOSE (test code = 125 mg/dL 70-110 H GLU) BLOOD UREA NITROGEN < 5 mg/dL 7-18 L (test code = BUN) GLOMERULAR FILTRATION 36.7 70-80 L Units of measure = RATE (test code = GFR) ml/mi n/1.73 m2 CREATININE (test code = 1.4 mg/dL 0.6-1.3 H CREAT) CALCIUM (test code = 8.9 mg/dL 8.0-10.5 N CA) [id number] 04:39:00 Test Item Value Reference Range Interpretation Comments PHOSPHOROUS (test code = PHOS) 3.6 MG/DL 2.5-4.9 N [id number] 04:39:00 Test Item Value Reference Range Interpretation Comments MAGNESIUM (test code = MAG) 1.46 mg/dL 1.80-2.40 L CALCIUM [id number] 04:39:00 Test Item Value Reference Range Interpretation Comments CALCIUM IONIZED (test code = SHAE) 1.15 MMOL/L 1.12-1.32 N HGB [id number] 04:02:00 Test Item Value Reference Range Interpretation Comments HEMOGLOBIN (test code = HGB) 11.6 g/dL 11.0-15.0 N HEMATOCRIT (test code = HCT) 35.0 % 33.0-45.0 N BASIC METABOLIC [id number] 13:41:00 Test Item Value Reference Range Interpretation Comments SODIUM (test code = NA) 131 mEq/L 134-147 L POTASSIUM (test code = 3.0 mEq/L 3.4-5.0 L K) CHLORIDE (test code = 98 mEq/L 100-108 L CL) CARBON DIOXIDE (test 27 mEq/l 21-33 N code = CO2) ANION GAP (test code = 9 0-20 N GAP) GLUCOSE (test code = 180 mg/dL 70-110 H GLU) BLOOD UREA NITROGEN 6 mg/dL 7-18 L (test code = BUN) GLOMERULAR FILTRATION 97.5 70-80 H Units of measure = RATE (test code = GFR) ml/mi n/1.73 m2 CREATININE (test code = 0.6 mg/dL 0.6-1.3 N CREAT) CALCIUM (test code = 9.3 mg/dL 8.0-10.5 N CA) Novel Coronavirus 2019 [id number] 03:44:00 Test Item Value Reference Range Interpretation Comments Novel Coronavirus Negative Negative Positive r esults are 2019 Inhouse (test indicativ e of the presence code = COVNONPUI) ofSARS-CoV -2 RNA, clinical correlation wit h patient historyand othe r diagnostic info rmation is necessary to determinepatien t infection status. Positiv e results do not rule out bacterial infection or co -infection with other viru ses. Negative result s do not preclude SARS-C oV-2 infection andsh ould not be used as the vaishnavi e basis for patient managementdecis ions. Negative result s must be combined with otherclinical observations, p atient history, and epidemiological information . Detection of SARS-CoV-2 RNA may be affe cted bysample collec tion methods, storag e conditions, and /or stageof infection. Nicolette l RNA mutations, vacc inations, antiviraltherap eutics, antibiotics, chemotherapeuti c orimmunosuppres matt drugs have not been e valuated for effectson d etection. Results are for the identification of SARS-CoV-2 RNA usingreal-time (RT) polymerase joao n reaction (PCR) technolog yfor the qualitative det ection of nucleic acids f rom [id number] v irus and diagnosis of SA RS-CoV-2 virusinfection. It is an Emergency Use Authorization ( EUA) testauthorized by the U.S. FDA. - XR CHEST 2 [id number] 00:00:00 [facility]: NATALYA KAPLAN : 1945 Sex: F FAX: Carolyn Montoya Willard: St: PRE FAX: Jem Guerra [phone] Name: [facility] : 1945 Age/S: 76/F [address] [place] [address] Unit #: [id number] Loc: [place] [address] Phys: Carolyn Montoya NP Acct: [id number] Dis Date: Status: PRE IN PHONE #: [phone] Exam Date: 04/28/2022 1623 FAX #: [phone] Reason: PREOP EXAMS: CPT CODE: [id number] XR CHEST 2 V 25962 PROCEDURE INFORMATION: Exam: XR Chest Exam date and time: 04/28/2022 4:04 PM Age: 76 years old Clinical indication: Screening exam; Pre-operative exam; Other: Gi; Additional info: Preop TECHNIQUE: Imaging protocol: Radiologic exam of the chest. Views: 2 views. COMPARISON: No relevant prior studiesavailable. FINDINGS: Lungs: No focal consolidations. Pleural spaces: Unremarkable. No pleural effusion. No pneumothorax. Heart/Mediastinum: Unremarkable. Bones/joints: Diffuse osseous demineralization. IMPRESSION: No acute cardiopulmonary abnormalities. at 0719 Reported and signed by: Cholo Lebron M.D. CC: Carolyn Montoya TRIM ATTACHER; Wilner Booth MD Technologist: RT Erin(Luis) Trnscrd Date/Time/By: 04/29/2022 (0701) : By: [email or web address] Orig Print D/T: S: 04/29/2022 (0761) PAGE 1 Signed ReportBASIC METABOLIC [id number] 16:32:00 Test Item Value Reference Range Interpretation Comments SODIUM (test code = NA) 136 mEq/L 134-147 N POTASSIUM (test code = 4.0 mEq/L 3.4-5.0 N K) CHLORIDE (test code = 103 mEq/L 100-108 N CL) CARBON DIOXIDE (test 28 mEq/l 21-33 N code = CO2) ANION GAP (test code = 9 0-20 N GAP) GLUCOSE (test code = 132 mg/dL 70-110 H GLU) BLOOD UREA NITROGEN 10 mg/dL 7-18 N (test code = BUN) GLOMERULAR FILTRATION 81.6 70-80 H Units of measure = RATE (test code = GFR) ml/mi n/1.73 m2 CREATININE (test code = 0.7 mg/dL 0.6-1.3 N CREAT) CALCIUM (test code = 10.3 mg/dL 8.0-10.5 N CA) PROTHROMBIN [id number] 16:29:00 Test Item Value Reference Range Interpretation Comments PROTHROMBIN TIME 12.0 SECONDS 9.3-12.9 N PATIENT (test code = PTP) INTERNATIONAL NORMAL 1.1 0.8-1.2 N TARGET INR BY RATIO (test code = INDICATIO N Indication INR) INR1. Prophylax is of venous thrombos is 2.0 - 3.0 (orthoped ic surgery), Proph ylaxis of venous throm bosis (other than hig h-risk surgery), Treat ment of Deep Vein Thrombosis/Pulm onary Embolism, Preve ntion of systemic emb olism - Tissue heart va lves, Acute Myocardia l Infarction (to prevent systemic emboli sm), Valvular heart disease, Atrial Fibrillation, Bileaflet mecha nical valve in aortic position.2. Mec hanical prosthetic valv es (high risk), 2. 5 - 3.5 Presence of Lup us Anticoagulant o r Antiphospholipi d Antibodies, Pre vention of systemic emb olism - Acute Myocardia l Infarction (to prevent recurrent infar ct). THROMBOPLASTIN TIME [id number] 16:29:00 Test Item Value Reference Range Interpretation Comments THROMBOPLASTIN TIME 30.5 Seconds 25.0-39.5 N Therape utic Range: PARTIAL (test code = 50.4 - 88.3 Seconds PTT) Effective 02/28/2019 CBC W/AUTO [id number] 16:23:00 Test Item Value Reference Range Interpretation Comments WHITE BLOOD CELL (test code = 8.3 x10 3/uL 4.5-11.0 N WBC) RED BLOOD CELL (test code = 4.06 x10 6/uL 3.54-5.02 N RBC) HEMOGLOBIN (test code = HGB) 12.5 g/dL 11.0-15.0 N HEMATOCRIT (test code = HCT) 37.8 % 33.0-45.0 N MEAN CELL VOLUME (test code = 93.1 fL 81.0-99.0 N MCV) MEAN CELL HGB (test code = MCH) 30.8 pg 27.0-33.0 N MEAN CELL HGB CONCETRATION 33.1 g/dL 33.0-37.0 N (test code = MCHC) RED CELL DISTRIBUTION WIDTH CV 13.4 % 11.5-14.5 N (test code = RDW) RED CELL DISTRIBUTION WIDTH SD 45.2 fL 37.0-54.0 N (test code = RDW-SD) PLATELET COUNT (test code = 293 x10 3/uL 150-400 N PLT) MEAN PLATELET VOLUME (test code 9.2 fL 7.0-9.0 H = MPV) NEUTROPHIL % (test code = NT%) 67.2 % 56.0-77.0 N IMMATURE GRANULOCYTE % (test 0.4 % 0.0-2.0 N code = IG%) LYMPHOCYTE % (test code = LY%) 23.5 % 14.0-32.0 N MONOCYTE % (test code = MO%) 8.0 % 4.8-9.0 N EOSINOPHIL % (test code = EO%) 0.7 % 0.3-3.7 N BASOPHIL % (test code = BA%) 0.2 % 0.0-2.0 N NUCLEATED RBC % (test code = 0.0 % 0-0 N NRBC%) NEUTROPHIL # (test code = NT#) 5.57 x10 3/uL 2.0-7.6 N IMMATURE GRANULOCYTE # (test 0.03 x10 3/uL 0.00-0.03 N code = IG#) LYMPHOCYTE # (test code = LY#) 1.95 x10 3/uL 1.0-3.8 N MONOCYTE # (test code = MO#) 0.66 x10 3/uL 0.1-0.8 N EOSINOPHIL # (test code = EO#) 0.06 x10 3/uL 0.0-0.2 N BASOPHIL # (test code = BA#) 0.02 x10 3/uL 0.0-0.2 N NUCLEATED RBC # (test code = 0.00 x10 3/uL 0.0-0.1 N NRBC#) MANUAL DIFF REQUIRED (test code NO = MDIFF) [O] Urine Dipstick (In Office)2019-03-22 12:07:00 Test Item Value Reference Range Interpretation Comments Glucose (test code = Glucose) NEG N LEUKOCYTES (test code = LEUKOCYTES) NEG N NITRITE; Normal (test code = 60156-9) NEG N UROBILINOGEN; Normal (test code = 0.2 N 44897-0) PROTEIN; Normal (test code = 34622-1) NEG N pH (test code = pH) 7.0 N URINE BLOOD; Normal (test code = NEG N 09481-8) SPECIFIC GRAVITY; Normal (test code = 1.015 N 2965-2) KETONES; Normal (test code = 76885-1) NEG N BILIRUBIN; Normal (test code = 01554-9) NEG N [facility]] CULTURE, URINE, [id number] 12:00:01 Test Item Value Reference Range Interpretation Comments FINAL REPORT (test code = FINAL No Growth REPORT) ID PhysiciansTobacco Use [id number] 11:20:00 Test Item Value Reference Range Interpretation Comments Completed (test code = Completed) DONE ID PhysiciansMRI Knee Right Wo ContMRI Knee Right Wo Cont
[2023-09-15 15:24] LABS: Hematocrit 31.9 % (36.0-45.0)
[2023-09-15] MEDS: HYDROCODONE/APAP 7.5/325 MG TAB PO PRN ×2 (17:02→21:25)
[2023-09-15] MEDS: CEFAZOLIN SODIUM 2 GM in NA CHLORIDE 0.9% 100 ML IVPB SCH (19:05)
--- NOTE | 2023-09-15 19:17 | P.OP ---
Preoperative diagnosis: right knee osteoarthritis Postoperative diagnosis: same Primary procedure: right total knee arthroplasty Anesthesia: general Estimated blood loss: 40 cc Specimen: right knee bone remnants Findings: see dictation Operative Technique: Indication For Procedure: Natalya is a 77 year-old female presenting to my clinic with signs, symptoms and x-ray findings consistent with severe right knee osteoarthritis. I discussed with the patient at length risks and benefits associated with operative and nonoperative treatment. She had failed conservative treatment measures and had significant difficulties with ADLs secondary to her pain. We discussed operative treatment and elected to proceed with right total knee arthroplasty. She expressed understanding and elected to proceed with operative treatment. Description Of Procedure: After informed consent was obtained, the patient was identified in the preoperative holding area. The right lower extremity was ma rked. The patient was then taken to the PACU where she underwent a right lower extremity adductor canal block performed by Anesthesia. She was then taken to the operating room, transferred to the operating table in supine fashion, and placed under general anesthesia. The right lower extremity was then prepped and draped in usual sterile fashion. A time-out was initiated. The correct patient and procedure were confirmed and identified. The patient did receive her preoperative prophylactic antibiotics. The right lower extremity was then exsanguinated and tourniquet was inflated to 300 mmHg. Approximately 15 cm longitudinal incision was made centered over the anterior aspect of the right knee. Dissection was then taken to the extensor mechanism and a medial parapatellar arthrotomy was performed. The patella was everted and dislocated laterally and the knee was flexed in the fat pad. Medial and lateral meniscus and ACL were all excised exposing the distal femur. Excess hypertrophic synovium was also excised within the suprapatellar pouch. The patient had an MRI of her right knee preoperatively for surgical planning and creation of cutting blocks. The cutting block was then placed over the distal femur and pins were then placed. The distal femoral cutting block was then placed over the pins. An arnie wing was then used to ensure proper depth cut and the distal femur was then cut. The chamfer cutting guide was then placed over the distal end of the femur. Anterior, posterior cuts as well as anterior and posterior chamfer cuts were then made again confirming proper depth of the cut using an Arnie wing. Excess bone remnants were then sent to pathology for further evaluation. Next, attention was taken to the proximal tibia. A tibial jig and tibial cutting block was then placed on proximal aspect of the right tibia and locked into position. Pins were then placed and alignment guide was then used to confirm proper alignment of the cut and then coronal and sagittal planes. Once this was confirmed, the cutting jig was placed over the pins and the proximal tibia was cut. Sizing trays were then selected and size 10 mm spacer was used and there was good overall balance in flexion and extension. Next, the trial implants were then placed using the size 8 standard CR femur and a size F tibia and an 11 mm CR poly. There was overall good range of motion and good stability. The trial implants were then removed. The wound was then irrigated thoroughly with normal saline and the knee was then injected with 20 cc of 0.5% Marcaine both in the posterior capsule and medial and lateral gutters as well as quadriceps tendon and periosteum. The tibia was then punched. The femur was drilled. The cement was then prepared on the back table. Cement was then placed first on the tibial surface followed by size F tibia. Excess cement was removed with [place] elevators. Size 8 standard CR femur was then placed on the distal femur after cement was placed on the distal femur. Excess cement was then removed and a size 11 mm CR trial poly was then placed. The knee was held in extension as the cement hardened. Undersurface of the patella was prepared debriding osteophytes using rongeurs as well as osteophytes.. Cement was placed on the undersurface of the patella after it was cut and a size 32 patella was placed. Once the cement was hardened, the knee was ranged, there was good overall stability both in flexion, extension and as well as stability with varus and valgus stresses. Trial poly was then removed and a size 11 mm CR poly was then placed and locked into position. The knee was then ranged again. There was good overall range of motion both for flexion and extension with good stability. The wound was then irrigated again thoroughly with normal saline using pulse lavage. Tourniquet was let down. Hemostasis was achieved using Bovie electrocautery. Extensor mechanism was then approximated using a #1 Vicryl both in interrupted and running fashion. The fascia was then approximated using 0 Vicryl. Subcutaneous tissue was approximated with a 2-0 Vicryl. Skin was approximated using rosina. Sterile dressings were applied. The patient was awakened and transferred back in stable condition Complications: None Implants: Biomet Cam Persona 8 CR femur, F tibia, 32 patella, 11 CR poly Fluids & blood products: per anesthesia record; TT: 91 mins @ 300 mmHg Transferred to: Recovery Room Condition: Good
[2023-09-15 20:17] VITALS: BMI 29.2
[2023-09-15] MEDS ORDERED: TRAZODONE 150 MG TAB PO SCH (21:00)
[2023-09-15] MEDS ORDERED: ATORVASTATIN 40 MG TAB PO SCH (21:00)
[2023-09-15] MEDS ORDERED: HOME MED 1 EA UNK (Fenofibrate,Micronized [Fenofibrate] 67 MG Capsule) PO SCH (21:00)
[2023-09-16] MEDS: CEFAZOLIN SODIUM 2 GM in NA CHLORIDE 0.9% 100 ML IVPB SCH ×2 (01:37→08:53)
[2023-09-16] MEDS: HYDROCODONE/APAP 7.5/325 MG TAB PO PRN ×2 (03:49→08:57)
[2023-09-16] MEDS ORDERED: LEVOTHYROXINE SOD 0.075 MG TAB PO SCH (06:00)
[2023-09-16] MEDS ORDERED: ENOXAPARIN 30 MG/0.3 ML SQ SCH (06:00)
[2023-09-16 08:39] LABS: Hematocrit 26.5 % (36.0-45.0)
[2023-09-16] MEDS ORDERED: CELECOXIB 100 MG CAPSULE PO SCH (09:00)
[2023-09-16] MEDS ORDERED: LOSARTAN/HCTZ 50-12.5 PO SCH (09:00)
[2023-09-16] MEDS ORDERED: VENLAFAXINE HCL XR 75 MG CAP PO SCH (09:00)
[2023-09-16] MEDS ORDERED: MULTIVIT W/ MINERAL TAB PO SCH (09:00)
[2023-09-16 10:04] VITALS: BP 120/54; TEMP 97.4
--- NOTE | 2023-09-16 11:39 | P.DS ---
Admission Date: 09/15/23 Discharge Date: 09/16/23 Disposition: DC HOME/HOME HEALTH CARE Discharge Condition: GOOD Reason for Admission: s/p R TKA Consultations: None Procedures: Right total knee arthroplasty Brief History of Present Illness: Pattie is a 77-year-old female that underwent right total knee arthroplasty on September 15, 2023 and was admitted to the floor postoperatively in stable condition. Hospital Course: Natalya is a 77-year-old female that underwent right total knee arthroplasty on September 15, 2023 without complication. She was admitted to floor in stable condition. Her pain was controlled while on the floor and mobilize safely with physical therapy. She was discharged in stable condition. She was given Lovenox while in the hospital for DVT prophylaxis and was discharged on Xarelto. She will follow-up in 2 weeks for reevaluation and staple removal. Vital Signs/Physical Exam: Temp Pulse Resp BP Pulse Ox 97.4 F 90 91 H 120/54 L 95 09/16/23 08:00 09/16/23 08:00 09/16/23 08:57 09/16/23 08:00 09/16/23 08:57 Laboratory Data at Discharge: WBC 4.40 thou/uL (4.3-10.9) 09/10/23 09:36 Hgb 9.8 g/dL (12.0-15.0) L D 09/16/23 07:48 Hct 26.5 % (36.0-45.0) L 09/16/23 07:48 Plt Count 243 thou/uL (152-406) 09/10/23 09:36 PT 11.1 SECONDS (9.5-12.5) 09/10/23 09:39 INR 1.01 09/10/23 09:39 APTT 33.5 SECONDS (24.3-36.9) 09/10/23 09:39 Sodium 133 mEq/L (136-145) L 09/10/23 09:36 Potassium 3.7 mEq/L (3.5-5.1) 09/10/23 09:36 BUN 13 mg/dL (7-18) 09/10/23 09:36 Creatinine 0.63 mg/dL (0.55-1.02) 09/10/23 09:36 Glucose 100 mg/dL (74-106) 09/10/23 09:36 Home Medications: Levothyroxine [Synthroid*] 75 mcg PO [id number] 04/28/13 Multivitamin [Daily Multivitamin] 1 each PO DAILY 04/28/13 Venlafaxine HCl *Xr* [Effexor XR] 75 mg PO DAILY 04/28/13 Fenofibrate,Micronized [Fenofibrate] 1 cap PO BEDTIME 10/03/19 Trazodone [Desyrel*] 1 tab PO BEDTIME 10/03/19 Atorvastatin Calcium 40 mg PO BEDTIME 09/10/23 Lactobacillus Acidophilus [Probiotic] 1 each PO 09/10/23 Losartan/Hydrochlorothiazide [Losartan-Hctz 100-25 mg Tab] 1 tab PO DAILY 09/10/23 Hydrocodone 7.5/APAP 325 [[place] 7.5/325 mg*] 1 tab PO Q4H PRN tab 09/16/23 Physician Discharge Instructions: Keep dressing clean dry and intact. Continue use of MARGIE hose for 2 weeks to aid with swelling. Begin Xarelto tomorrow, Wednesday, September 17, with breakfast and take once daily until prescription completed. Follow-up with Dr. Renteria in 2 weeks for staple removal. Diet: Regular Activity: Weight bearing as tolerated Followup: Tanner Salvador MD [Primary Care Provider] - Yoan Renteria MD [ACTIVE - CAN ADMIT] - 1-2 Weeks
== END 2023-09-16 12:45 | disposition home health service (06) ==
LOC: OR 05:58 → 2ND 12:49
PROVIDERS: ADMIT Orthopaedic Surgery Sports Medicine; ATTEND Orthopaedic Surgery Sports Medicine
PROC: 0SRC069 Replacement of Right Knee Joint with Oxidized Zirconium on Polyethylene Synthetic Substitute, Cemented, Open Approach (ICD-10-PCS; principal; 2023-09-15 08:00)
DX: M17.11 Unilateral primary osteoarthritis, right knee (principal); M25.561 Pain in right knee
CPT/HCPCS: 85025; 80048; 36415 ×3; 85610; 88304; 88311; 85730; 85018 ×2; 85014 ×2; 71046; 73560; 97110 ×2; 97116 ×3; 97139; 97161; 97530 ×2; 94010; 27447; J3475; J2704; J0171; J2001 ×2; J2371; J1650; J2250; J3010 ×2; J1100 ×2; J1170; J2405; J7120 ×3; G0379; G0378 ×2; 88305